=== PATIENT | male | born 1960 | race African-American/Black ===

== ENCOUNTER 2024-11-03 05:36 | Outpatient (REF) | payer MEDICARE, SELFPAY ==
[2024-11-03 05:41] LABS: MANUAL DIFF FLAG NO
[2024-11-03 06:09] LABS: Basophils Absolute Auto 0.1 X10*3/uL (0.0-0.2); Basophils Percent Auto 1.7 % (0-2); Eosinophils Absolute Auto 0.2 X10*3/uL (0.0-0.4); Eosinophils Percent Auto 3.3 % (0-4); Hematocrit 32.4 % (42.0-52.0); Imm Gran Abs Auto 0.09 X10*3/uL (0.00-0.03); Imm Gran Pct Auto 1.7 % (0.0-0.4); Lymphocytes Absolute Auto 0.8 X10*3/uL (1.2-4.9); Lymphocytes Percent Auto 15.2 % (20-40); Mean Corpuscular Hemoglobin 33.1 pg (27.0-33.0); Mean Corpuscular Volume 97.6 fL (80.0-98.0); Mean Platelet Volume 12.5 fL (9.4-12.4); Monocytes Absolute Auto 0.6 X10*3/uL (0.1-1.2); Monocytes Percent Auto 10.5 % (2-11); Neutrophils Absolute Auto 3.7 x10*3/uL (2.0-8.3); Neutrophils Percent Auto 67.6 % (45-73); Platelet Count 116 X10*3/uL (160-400); Red Blood Count 3.32 X10*6/uL (4.60-5.80); Red Cell Distribution Width 16.2 % (11.0-16.0); White Blood Count 5.4 X10*3/uL (4.8-10.8)
[2024-11-03 06:23] LABS: Estimated Average Glucose 103 mg/dL; Hemoglobin A1C 99.1159 umol/L; Hemoglobin A1c % 5.2 % (<6.0); Total Hemoglobin (HGBA1C) 2935.9828 umol/L
[2024-11-03 06:48] LABS: Alanine Aminotransferase 143 U/L (0-40); Albumin Level 3.4 g/dL (3.5-5.0); Alkaline Phosphatase 637 U/L (39-117); Anion Gap 17 (12-20); Aspartate Amino Transferase 108 U/L (5-37); Bilirubin Total 1.9 mg/dL (0.0-1.0); Blood Urea Nitrogen 81 mg/dL (9-16); Calcium 9.4 mg/dL (8.4-10.2); Carbon Dioxide 24 mmol/L (22-29); Chloride 95 mmol/L (96-108); Estimated Glomerular Filt Rate 11; Glucose Random 119 mg/dL (60-115); Potassium 4.1 mmol/L (3.3-5.1); Sodium 132 mmol/L (135-145); Total Protein 7.9 g/dL (6.5-8.0)
[2024-11-03 16:23] LABS: Phosphorus 4.6 mg/dL (2.7-4.5)
== END 2024-11-03 05:37 | disposition home or self-care (01) ==
LOC: HO.MMNH2L 05:36
PROVIDERS: Visit Provider Student in an Organized Health Care Education/Training Program
DX: Z99.2 Dependence on renal dialysis (principal); Z13.1 Encounter for screening for diabetes mellitus
CPT/HCPCS: 36415; 80053; 83036; 84100; 85025

== ENCOUNTER 2024-11-14 11:08 | Emergency (ER) | payer MEDICARE, MEDICAID, SELFPAY ==
[2024-11-14] VITALS (8 sets, daily range): BP systolic 84–107; BP diastolic 44–57; PULSE 73–128; RESP 18–21; TEMP 36.4–36.9; O2SAT 95–100; BMI 16.5
--- NOTE | 2024-11-14 | ECG_ITS ---
Test Reason : cp Blood Pressure : */* mmHG Vent. Rate : 118 BPM Atrial Rate : * BPM P-R Int : * ms QRS Dur : 82 ms QT Int : 326 ms P-R-T Axes : * 34 64 degrees QTcB Int : 456 ms Atrial fibrillation with rapid ventricular response with premature ventricular or aberrantly conducted complexes Low voltage QRS Nonspecific ST and T wave abnormality Abnormal ECG When compared with ECG of 21-Jul-2016 09:16, Rhythm change Referred By: Carmenza Hull Electronically Signed By: TASHIA HODGE
--- NOTE | ~2024-11-14 | CT_ITS ---
EXAMINATION: CT HEAD WITHOUT CONTRAST CLINICAL INFORMATION: raman hx of on eliquis COMPARISON: None available. TECHNIQUE: Contiguous axial imaging was performed from the skull base to vertex without intravenous administration of contrast. This CT examination was performed using dose optimization techniques as appropriate, variously including the following: *Automated exposure control *Adjustment of mA and/or kV according to patient size (this includes techniques or standardized protocols for targeted exams where dose is matched to indication/reason for exam; i.e. extremities or head) *Use of iterative reconstruction technique DLP: 1502 mGy-cm FINDINGS: No acute intracranial hemorrhage, mass effect, midline shift, hydrocephalus or herniation. Bilateral multifocal patchy and confluent deep periventricular white matter hypodensities involving centrum semiovale and vargas radiata both hemispheres. Questionable hypodensities in the ventral medulla oblongata/poornima. Prominence of the extra-axial CSF spaces cerebral sulci, ventricles likely central volume loss. Vascular calcifications, intracranial and extracranial. There is a nasal septum defect. Secretions/effervescent in the nasal cavity. Small retention cysts versus polyp, right maxillary sinus and left ethmoid air cells. Tympanic cavities and mastoid air cells are aerated. Air-fluid level in the left sphenoid sinus. Pneumatized petrous apices, congenital. No gross hematoma or masses in the intraconal or the extraconal compartments of the orbits. The bony calvarium is intact. CT/CT head/brain wo IV con IMPRESSION: Small vessel occlusive disease. Superimposed acute stroke/nonhemorrhagic ischemia cannot be entirely excluded. If patient's symptoms persist and or concern recommend non-IV contrast MRI brain. Nasal septum defect which could be related to the proximal. Acute on chronic paranasal sinus disease. Atherosclerosis disease.. Electronically signed by: Todd Singh MD 11/14/2024 03:[address] [facility]
--- NOTE | ~2024-11-14 | CT_ITS ---
EXAMINATION: CT ABDOMEN AND PELVIS WITH CONTRAST CLINICAL INFORMATION: Abdominal pain. COMPARISON: CT dated November 22, 2009.. TECHNIQUE: Multidetector volumetric images were obtained from the superior aspect of the liver through the pubic symphysis following administration 85 mL of Omnipaque 350 intravenous contrast. Sagittal and coronal reformatted images were obtained on the technologist's workstation. Oral contrast: No This CT examination was performed using dose optimization techniques as appropriate, variously including the following: *Automated exposure control *Adjustment of mA and/or kV according to patient size (this includes techniques or standardized protocols for targeted exams where dose is matched to indication/reason for exam; i.e. extremities or head) *Use of iterative reconstruction technique. DLP: 1502 mGy centimeters. FINDINGS: LUNG BASES: Atelectasis lung bases. LIVER, GALLBLADDER, AND BILIARY TREE: Intrahepatic and extrahepatic biliary ductal dilatation. The common bile duct measures 1.2 cm in maximum diameter with an abrupt cut off at the junction with the second portion of the duodenum. Liver measures 16 cm. Decreased enhancement pattern due to mostly arterial phase acquisition. The portal vein appears patent. Fluid-filled prominent gallbladder. No pericholecystic fluid collection or gallbladder wall thickening. PANCREAS: No focal mass. No main pancreatic ductal dilatation. No peripancreatic fluid collections. SPLEEN: 10 cm. No focal mass. ADRENAL GLANDS: No nodular lesions. Mild soft tissue fullness. KIDNEYS AND URETERS: Kidneys are small. No gross hydronephrosis. No mass. BLADDER: Fluid-filled. GASTROINTESTINAL TRACT: Abundant stool within the large intestine. There is a protrusion of the rectum slightly below the pelvic floor. No intestinal obstruction pattern. Appendix is normal. Status post percutaneously placed gastrostomy anchor in the body of the stomach lumen. No pneumoperitoneum. No gross ascites. No peripheral enhancing fluid collection, peritoneal cavity. ABDOMINAL WALL: No gross hernia. LYMPH NODES: No lymphadenopathy, mesenteric or retroperitoneal. VASCULAR: Mixed plaques throughout the abdominal aorta wall and iliac arteries without aneurysm or dissection. Calcified plaques in the coronary arteries. Beam hardening artifact secondary to metallic electrode in the right ventricle. Mixed plaques throughout the descending thoracic aorta, mesenteric arteries, splenic artery and main renal arteries. Calcified plaques in the vessels of the upper thigh. PELVIC VISCERA: No gross masses. OSSEOUS STRUCTURES: Subchondral cyst formation sclerosis and the articular surface of the acetabulum both coxofemoral joints more conspicuous on the right side. Multilevel thoracolumbar spondylosis. No gross acute fracture or listhesis in the axial skeleton. Sclerosis and the sacroiliac joints bilaterally. 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 Intrinsic neoplasm/lesion cannot be excluded. Probable rectal prolapsed. Coronary artery disease and atherosclerosis disease. Consider medical renal disease without hydronephrosis.. Fleischner guidelines were followed. Electronically signed by: Todd Singh MD 11/14/2024 03:19 PM [facility]
--- NOTE | ~2024-11-14 | CT_ITS ---
EXAMINATION: CT CHEST WITH CONTRAST CLINICAL INFORMATION: Chest pain. End-stage renal disease. Patient on anticoagulation therapy. Concerning pulmonary embolism. COMPARISON: None available. TECHNIQUE: Multidetector volumetric CT imaging of the chest was obtained after the administration of 85 mL of Omnipaque 350 intravenous contrast without immediate adverse reactions. Axial MIP volume rendering provided. Sagittal and coronal reformatted images were obtained. This CT examination was performed using dose optimization techniques as appropriate, variously including the following: *Automated exposure control *Adjustment of mA and/or kV according to patient size (this includes techniques or standardized protocols for targeted exams where dose is matched to indication/reason for exam; i.e. extremities or head) *Use of iterative reconstruction technique. DLP: 1502 mGy centimeter. FINDINGS: HIGHWAY MAINTENANCE SUPERVISOR: No gross intraluminal filling defects within the main pulmonary artery or its main branches. The main pulmonary artery diameter is 3.8 cm. The main right pulmonary artery diameter is 1.6 cm. The left main pulmonary artery diameter is 2.4 cm. No aneurysm or dissection, thoracic aorta. Mixed plaques throughout the thoracic aorta wall and its main branches and the coronary arteries. Calcified plaques in the aortic valve and in the mitral valve. Trace of pericardial effusion. No lymphadenopathy in the mediastinum or pulmonary hilum. Patchy and linear attenuation in the lung bases. No gross consolidation. No bronchiectasis. No honeycombing. Respiratory is patent. Multilevel cervical thoracic spondylosis. No acute fracture or listhesis in the axial skeleton. There is a fistula in the medial left pretracheal region no fully included in the exam. There is an apparent mixed plaque in the distal component of the fistulization. The abdomen has been included on a separate dictation. CT/CT chest w IV con IMPRESSION: No acute pulmonary artery emboli. No thoracic aortic aneurysm or dissection. Atelectasis, right lower lung lobe. Prominent pulmonary artery outflow. Pulmonary hypertension cannot be excluded. Coronary artery disease and atherosclerosis disease. Fleischner guidelines were followed. Electronically signed by: Todd Singh MD 11/14/2024 03:31 PM [facility]
--- NOTE | 2024-11-14 11:36 | ED_ITS ---
HPI - Chest Pain General Chief Complaint: Chest Pain Stated Complaint: CHEST/ABD PAIN @ DIALYSIS PER EMS Time Seen by Provider: 11/14/24 11:17 History of Present Illness HPI narrative: Patient is a 64-year-old male with a history of end-stage renal disease history of atrial fibrillation currently on Eliquis unsure of his compliance. Normally gets dialysis on Wednesday and Wednesday. Just got dialysis today. Complaining of chest pain abdominal pain headache that was sudden in onset towards the end of dialysis. There has been no change in his bowel movement. There is no fever no chills. There is no chest pain. There was no coughing or congestion. Patient was given an oxycodone through the G-tube with no relief. Patient is from home. Denies any bloody stool. Denies any diaphoresis. Denies any focal weakness. Related Data Home Medications ?Medication ?Instructions ?Recorded ?Confirmed apixaban 2.5 mg tablet (Eliquis) 2.5 mg feeding tube BID 11/14/24 11/14/24 bisacodyl 10 mg rectal suppository 10 mg IL BEDTIME 11/14/24 11/14/24 bisacodyl 10 mg rectal suppository 10 mg IL DAILY PRN constipation if 11/14/24 11/14/24 no result from MOM calcium carbonate 300 mg PO TIDWM 11/14/24 11/14/24 dextrose 40 % oral gel (Glucose 15 g PO Q15M PRN BS less than 60 11/14/24 11/14/24 Gel) and conscious diphenhydramine HCl 25 mg tablet 25 mg PO Q8H PRN itchiness 11/14/24 11/14/24 (Benadryl Allergy) docusate sodium 100 mg capsule 100 mg PO BID 11/14/24 11/14/24 fluticasone propionate 50 1 spray intranasal Q12H PRN 11/14/24 11/14/24 mcg/actuation nasal Congestion spray,suspension gabapentin 250 mg/5 mL (5 mL) oral 100 mg feeding tube TID 11/14/24 11/14/24 solution glucagon 1 mg solution for 1 mg subcut Q20M PRN BS less than 11/14/24 11/14/24 injection (Glucagon Emergency Kit) 60 and unconscious melatonin 3 mg tablet 6 mg PO BEDTIME 11/14/24 11/14/24 metoprolol tartrate 25 mg tablet 6.25 mg feeding tube BID 11/14/24 11/14/24 midodrine 5 mg tablet 5 mg feeding tube TID 11/14/24 11/14/24 multivitamin 1 tab feeding tube MOWEFR 11/14/24 11/14/24 oxycodone 5 mg/5 mL oral solution 5 mg PO Q4H PRN Severe Pain (Scale 11/14/24 11/14/24 Score 7-10) polyethylene glycol 3350 17 gram 17 g feeding tube DAILY 11/14/24 11/14/24 oral powder packet sennosides 8.6 mg tablet 17.2 mg feeding tube BEDTIME 11/14/24 11/14/24 tizanidine 2 mg tablet 2 mg PO TID 11/14/24 11/14/24 trazodone 50 mg tablet 50 mg feeding tube BEDTIME 11/14/24 11/14/24 Allergies Allergy/AdvReac Type Severity Reaction Status Date / Time No Known Allergies Allergy Unknown NOT Verified 11/14/24 11:25 APPLICABLE Review of Systems 2 Review of Systems: Positive chest pain positive abdominal pain positive headache PMFSH Past Medical History Attestation statement: The following information was validated with the patient. Social History Social History Smoked in Last 30 Days: No Use of substances other than those prescribed or required for medical reasons: No Advance Directives: No Physical Exam 2 Vital Signs: Vital Signs: Last Vital Signs Temp 97.8 F 11/14/24 16:07 Pulse 74 11/14/24 17:06 Resp 18 11/14/24 17:06 BP 97/47 L 11/14/24 17:06 Pulse Ox 98 11/14/24 17:06 O2 Del Method Room Air 11/14/24 17:06 BMI result Body Mass Index 16.5 Appearance: Alert. Oriented X3. No acute distress. Eyes: Pupils equal, round and reactive to light. ENT: Pharynx normal. Neck: Normal inspection. Neck supple. No lymph nodes noted. No crepitus CVS: Irregularly irregular Respiratory: Positive expiratory wheezes bilaterally Abdomen: Soft and nontender. No rigidity. No distention. good BS x4 Skin: Skin warm and dry. Normal skin color. Normal skin turgor. Extremities: No lower extremity edema. Neurovascular intact to all extremities. No Lacerations. No Rash Neuro: Oriented X 3. No motor deficit. No sensory deficit. Moving all extermities. No slurred speech Medications Administered Discontinued Medications Generic Name Dose Route Start Last Admin Trade Name Elayne PRN Reason Stop Dose Admin Aspirin 324 mg 11/14/24 11:39 11/14/24 11:52 Aspirin 81 Mg Tab.Chew PO 11/14/24 11:40 324 mg ONCE ONE Administration Iohexol 85 ml 11/14/24 14:19 11/14/24 14:19 Iohexol 350 Mg/Ml 100 Ml Infus..Btl IV 11/14/24 14:20 85 ml ONCE ONE Administration Metoprolol Tartrate 5 mg 11/14/24 11:39 11/14/24 12:02 Metoprolol Tartrate 5 Mg/5 Ml Vial IVPUSH 11/14/24 11:40 5 mg ONCE ONE Administration Protocol Medical Decision Making Medical Decision Making MDM Narrative: Patient presented today from dialysis he stated he finished dialysis when he arrived. Having nonspecific chest pain abdominal pain headache. Was given an oxycodone via G-tube with no relief. Patient came in for further evaluation. Feels tired. Patient's COVID flu RSV came back positive for COVID. Potassium was 5.2. Patient's initial EKG showed an atrial fibrillation pattern heart rate is about 120. Given 5 mg metoprolol monitored in the ED. my interpretation of the repeat EKG done showed a sinus rhythm heart rate is approximately 70 IL QRS QTC normal no acute ST segment elevation. Patient became chest pain free. My interpretation of patient's CT scan head was negative for any acute evidence of bleeding. I reviewed radiology's reading. I reviewed radiology's reading of the chest CT which showed no overt large infiltrate no overt large PE. 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 Patient's liver enzymes proximally baseline. There is no overt obstruction no abscess no perforation. Patient's potassium was repeated the repeat potassium is 5.8. Second troponin was more elevated at approximately 68 he is currently symptom free wants to go home. Will discussed with the rn rehabilitation. Thought patient's risk for PE to be low as patient has a history of being on Eliquis. Patient's case discussed with Dr. Weinstein from Nephrology the repeat potassium was 5.8. Troponin more elevated but patient is has no complaints at this time. Wanted patient to get 15 mg of lokalmine, okay with discharging home and following up on an outpatient basis. Will arrange for patient to get another dialysis session tomorrow. Currently in stable condition. Aware of the troponin and aware of the K finding. Differential Diagnosis Differential Diagnoses: The differential diagnosis associated with the presentation includes Atrial fibrillation COVID nonspecific chest pain Admission/Observation Consideration of admission/observation: Escalation of care including admission/observation considered Consult Healthcare Provider Management of the patient was discussed with: Plastics Design Engineer (Nephrology) Lab Data MDM Lab Attestation statement: I reviewed the patient's lab results. 11/14/24 15:01 11/14/24 16:05 Labs: Lab Results 11/14/24 11/14/24 11/14/24 Range/Units 12:51 12:51 12:53 WBC (4.8-10.8) X10*3/uL RBC (4.60-5.80) X10*6/uL Hgb (14.0-18.0) g/dl Hct (42.0-52.0) % MCV (80.0-98.0) fL MCH (27.0-33.0) pg MCHC (31.0-36.0) g/dl RDW (11.0-16.0) % Plt Count (160-400) X10*3/uL MPV (9.4-12.4) fL Immature Gran % (Auto) (0.0-0.4) % Neut % (Auto) (45-73) % Lymph % (Auto) (20-40) % [place] % (Auto) (2-11) % Eos % (Auto) (0-4) % Baso % (Auto) (0-2) % Lymph # (Auto) (1.2-4.9) X10*3/uL [place] # (Auto) (0.1-1.2) X10*3/uL Eos # (Auto) (0.0-0.4) X10*3/uL Baso # (Auto) (0.0-0.2) X10*3/uL Abs Immat Gran (auto) (0.00-0.03) X10*3/uL Absolute Neuts (auto) (2.0-8.3) x10*3/uL Absolute Nucleated RBC (0.0-0.012) X10*3/uL Nucleated RBC % (auto) (0.0-0.2) /100WBC PT (10.9-12.4) SEC INR (0.9-1.1) VBG pH 7.66 H* (7.32-7.43) VBG pCO2 25 mmHg VBG pO2 197 mmHg VBG HCO3 28 H (22-26) mmol/L VBG O2 Saturation 99.0 % VBG Base Excess 8.7 mmol/L Sodium 136 (135-145) mmol/L Potassium 5.2 H D (3.3-5.1) mmol/L Chloride 97 (96-108) mmol/L Carbon Dioxide 28 (22-29) mmol/L Anion Gap 16 (12-20) BUN 35 H (9-16) mg/dL Creatinine 3.47 H (0.5-1.4) mg/dL Estim Creat Clear Calc 16.0 Estimated GFR 18 Random Glucose 93 (60-115) mg/dL Calcium 9.1 9.4 (8.4-10.2) mg/dL Phosphorus 3.2 (2.7-4.5) mg/dL Magnesium 2.5 (1.6-2.6) mg/dL Total Bilirubin 1.2 H (0.0-1.0) mg/dL Direct Bilirubin 0.6 H (0.0-0.5) mg/dL AST 55 H (5-37) U/L ALT 74 H (0-40) U/L Alkaline Phosphatase 293 H (39-117) U/L Troponin I High Sens 52.5 H (<3.5-35.0) ng/L Total Protein 8.5 H (6.5-8.0) g/dL Albumin 3.6 (3.5-5.0) g/dL Lipase 81 H (8-78) U/L Influenza Type A (PCR) NEGATIVE (Negative) Influenza Type B (PCR) NEGATIVE (Negative) RSV RNA Qual (PCR) NEGATIVE (Negative) SARS-CoV-2 RNA (RT-PCR) POSITIVE A (Negative) 01/11/14/24 11/14/24 Range/Units 15:01 16:05 16:22 WBC 8.2 (4.8-10.8) X10*3/uL RBC 3.51 L (4.60-5.80) X10*6/uL Hgb 11.9 L (14.0-18.0) g/dl Hct 34.9 L (42.0-52.0) % MCV 99.4 H (80.0-98.0) fL MCH 33.9 H (27.0-33.0) pg MCHC 34.1 (31.0-36.0) g/dl RDW 15.7 (11.0-16.0) % Plt Count 127 L (160-400) X10*3/uL MPV 11.2 (9.4-12.4) fL Immature Gran % (Auto) 0.9 H (0.0-0.4) % Neut % (Auto) 71.6 (45-73) % Lymph % (Auto) 14.0 L (20-40) % [place] % (Auto) 10.6 (2-11) % Eos % (Auto) 1.9 (0-4) % Baso % (Auto) 1.0 (0-2) % Lymph # (Auto) 1.2 (1.2-4.9) X10*3/uL [place] # (Auto) 0.9 (0.1-1.2) X10*3/uL Eos # (Auto) 0.2 (0.0-0.4) X10*3/uL Baso # (Auto) 0.1 (0.0-0.2) X10*3/uL Abs Immat Gran (auto) 0.07 H (0.00-0.03) X10*3/uL Absolute Neuts (auto) 5.9 (2.0-8.3) x10*3/uL Absolute Nucleated RBC 0.000 (0.0-0.012) X10*3/uL Nucleated RBC % (auto) 0.0 (0.0-0.2) /100WBC PT 12.4 (10.9-12.4) SEC INR 1.1 (0.9-1.1) VBG pH 7.50 H (7.32-7.43) VBG pCO2 46 mmHg VBG pO2 50 mmHg VBG HCO3 36 H (22-26) mmol/L VBG O2 Saturation 81.0 % VBG Base Excess 11.9 mmol/L Sodium (135-145) mmol/L Potassium 5.8 H (3.3-5.1) mmol/L Chloride (96-108) mmol/L Carbon Dioxide (22-29) mmol/L Anion Gap (12-20) BUN (9-16) mg/dL Creatinine (0.5-1.4) mg/dL Estim Creat Clear Calc Estimated GFR Random Glucose (60-115) mg/dL Calcium (8.4-10.2) mg/dL Phosphorus (2.7-4.5) mg/dL Magnesium (1.6-2.6) mg/dL Total Bilirubin (0.0-1.0) mg/dL Direct Bilirubin (0.0-0.5) mg/dL AST (5-37) U/L ALT (0-40) U/L Alkaline Phosphatase (39-117) U/L Troponin I High Sens 68.5 H (<3.5-35.0) ng/L Total Protein (6.5-8.0) g/dL Albumin (3.5-5.0) g/dL Lipase (8-78) U/L Influenza Type A (PCR) (Negative) Influenza Type B (PCR) (Negative) RSV RNA Qual (PCR) (Negative) SARS-CoV-2 RNA (RT-PCR) (Negative) Independent Interpretation I performed an independent interpretation of an: EKG (Initial EKG showed an atrial fibrillation pattern heart rate is 120 subsequent EKG showed a sinus pattern heart rate is 70 IL QRS QTC normal no ST segment elevation) and CT Scan (My interpretation patient's CT scan of the head was negative for bleed.) Radiology Impression Discussion of test interpretation with radiology: I have reviewed the radiologist's reading. (CT head, chest, abdomen pelvis) External Record Review External record reviewed: Inpatient record Chronic Conditions Patient?s care impacted by: Hypertension End-stage renal disease on dialysis Wednesday Social Determinants Patient?s care significantly limited by Social Determinants of Health including: Inadequate housing, Problems related to primary support group and Unemployment Discharge Plan Discharge Clinical Impression: Atrial fibrillation, COVID, Acute hyperkalemia Patient Disposition: Home, Self-Care Instructions: A-fib (Atrial Fibrillation) (ED), COVID-19 (Coronavirus Disease 2019) (ED) Additional Instructions: Concerning 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 Intrinsic neoplasm/lesion cannot be excluded. Please closely follow-up on an outpatient basis. Prescriptions: No Action multivitamin Tablet 1 tab feeding tube MOWEFR sennosides 8.6 mg Tablet 17.2 mg feeding tube BEDTIME tizanidine 2 mg Tablet 2 mg PO TID trazodone 50 mg Tablet 50 mg feeding tube BEDTIME polyethylene glycol 3350 17 gram Powder In Packet 17 g feeding tube DAILY dextrose [Glucose Gel] 40 % Gel 15 g PO Q15M PRN (Reason: BS less than 60 and conscious) Rx Instructions: until symptoms of low blood sugar are controlled midodrine 5 mg Tablet 5 mg feeding tube TID Rx Instructions: do not give last dose of day after 6PM or within 4 hrs of bedtime oxycodone 5 mg/5 mL Solution 5 mg PO Q4H PRN (Reason: Severe Pain (Scale Score 7-10)) calcium carbonate 300 mg (750 mg) Tablet,Chewable 300 mg PO TIDWM melatonin 3 mg Tablet 6 mg PO BEDTIME bisacodyl 10 mg Suppository 10 mg IL DAILY PRN (Reason: constipation if no result from MOM) bisacodyl 10 mg Suppository 10 mg IL BEDTIME diphenhydramine HCl [Benadryl Allergy] 25 mg Tablet 25 mg PO Q8H PRN (Reason: itchiness) docusate sodium 100 mg Capsule 100 mg PO BID Glucagon Emergency Kit (human) 1 mg Recon Soln 1 mg SUBCUT Q20M PRN (Reason: BS less than 60 and unconscious) Rx Instructions: until target blood sugar attained fluticasone propionate 50 mcg/actuation [place],Suspension 1 spray INTRANASAL Q12H PRN (Reason: Congestion) Rx Instructions: administer into each nostril metoprolol tartrate 25 mg Tablet 6.25 mg feeding tube BID gabapentin 250 mg/5 mL (5 mL) Solution 100 mg feeding tube TID Eliquis 2.5 mg Tablet 2.5 mg feeding tube BID Referrals: Derek Weinstein MD [Physician] - 11/14/24 Print Language: Bengali
[2024-11-14] MEDS: Aspirin 81 MG TAB.CHEW 324 MG PO (11:52)
--- NOTE | 2024-11-14 12:01 | PC.NURSE ---
BP 107/57. Per Dr. Della sahni to give lopressor
[2024-11-14] MEDS: Metoprolol Tartrate 5 MG/5 ML VIAL IVPUSH (12:02)
--- NOTE | 2024-11-14 12:58 | PC.NURSE ---
pt is very difficult draw. multiple people tried for an iv line. a 22g was inserted. only some lab draws were obtained with butterfly. aware.
--- OUTSIDE RECORDS SUMMARY | 2024-11-14 13:00 | XMS_ITS | Encounter Summary ---
Author Organization [facility], Address [address] [place] [address] Phone Care Team Providers Care Angiographer Name Role Phone Delores Painter MD Primary Care Provider [phone] Encounter Details Date Type Department Care Team (Late st Contact Info) Description 11/09/2024 Telephone [facility] - [facility] [address] [place] [id number] Jennifer Suarez [address] [place] [phone] Social History Tobacco Use Types Packs/Day Years Used Date Smoking Tobacco: Never Smokeless Tobacco: Never Alcohol Use Standard Drinks/Week Comments Never 0 (1 standard drink = 0.6 oz pur e alcohol) Sex and Gender Information Value Date Recorded Sex Assigned at Not on file Legal Sex Male 5:02 PM EST Gender Identity Not on file Sexual Orientation Not on file documented as of this encounter Miscellaneous Notes * Telephone Encounter - Jennifer Suarez - 11/09/2024 2:31 PM EST Called patient and LVM for patient to call office and reschedule fistulagram procedure. documented in this encounter Plan of Treatment Not on file documented as of this encounter Procedures Procedure Name Priority Date/Time Associated Diagnosis Comments HEMOGLOBIN AND HEMATOCRIT, BLOOD Routine 11/09/2024 3:00 AM EST documented in this encounter Results * (ABNORMAL) Hemoglobin and hematocrit (11/09/2024 3:00 AM EST) Hgb 10.4(L) 13.7 - 17.5 g/dL [facility] Hematocrit 31.0(L) 40.1 - 51.0 % [facility] Hemoglobin x 3 31.2(L) 41.1 - 52.5 g/dL [facility] 11/09/2024 3:00 AM EST 11/10/2024 1:22 PM EST us Zeeshan Infante MD LAB BLOOD ORDERABLES Final Result [facility] [address] [place] [address] documented in this encounter Visit Diagnoses Not on filedocumented in this encounter Care Teams Angiographer Relationship Specialty Start Date End Date Delores Painter MD [address] PCP - General 10/28/20 documented as of this encounter
--- OUTSIDE RECORDS SUMMARY | 2024-11-14 13:00 | XMS_ITS | Encounter Summary ---
Author Organization [facility] Address [address] [address] Phone Care Team Providers Care Rides Supervisor Name Role Phone Delores Painter MD Primary Care Provider [phone] Encounter Details Date Type Department Care Team (Late st Contact Info) Description 11/09/2024 Treatment [facility] [address] [phone] Cherrie Infante MD [address] [phone] Social History Tobacco Use Types Packs/Day Years [...] as of this encounter Miscellaneous Notes * Dialysis Note - Cherrie Infante MD - 11/09/2024 12:00 AM EST Patient: Alton Thornton : 1960 Note Type: Dialysis Rounds-Comp Service Date: 11/09/2024 This patient was personally seen for a complete visit as part of routine monthly dialysis care for end stage renal disease. Attending Salon Professional: CHERRIE INFANTE MD Dialysis Location: [facility] Schedule: Shift: 1 OVERVIEW Patient is stable. HOME MEDICATIONS Medications reviewed. BP AND FLUID ASSESSMENT Acceptable blood pressure. ADEQUACY ASSESSMENT Target met. Prescription compliance acceptable. spKt/V (Daugirdas II) 1.51 (07/24/24) 1.32 (07/19/24) 1.50 (07/14/24) eKdrt/V 1.30 (07/24/24) 1.16 (07/19/24) 1.33 (07/14/24) % Urea Reduction 74 (07/24/24) 67 (07/19/24) 73 (07/14/24) BUN 110 (07/24/24) 66 (07/19/24) 44 (07/14/24) BUN Post Dialysis 29 (07/24/24) 22 (07/19/24) 12 (07/14/24) Creatinine 7.99 (07/19/24) 8.51 (06/21/24) 7.69 (05/24/24) Bicarbonate (CO2) 24 (07/19/24) 25 (06/21/24) 29 (05/24/24) Sodium 136 (07/19/24) 136 (06/21/24) 135 (05/24/24) ACCESS ASSESSMENT Vascular access examined. ANEMIA ASSESSMENT Anemia targets met. Hemoglobin at target. Hemoglobin 13.2 (08/02/24) 13.0 (07/26/24) 13.4 (07/19/24) Iron Saturation (TSat) 26 (07/19/24) 22 (06/21/24) 32 (05/24/24) Ferritin 671 (07/19/24) 861 (06/21/24) 888 (05/24/24) Iron 57 (07/19/24) 49 (06/21/24) 70 (05/24/24) TIBC 222 (07/19/24) 218 (06/21/24) 218 (05/24/24) Reticulocyte Hemoglobin 35.2 (07/19/24) 32.5 (04/21/24) 32.9 (01/19/24) MCV 102 (07/19/24) 100 (04/21/24) 97 (01/19/24) BMM ASSESSMENT PTH within target. Hyperphosphatemia noted. Calcium controlled. Bone and mineral metabolism parameters reviewed. Calcium 9.2 07/19/24 9.7 06/21/24 9.5 05/24/24 Corrected Calcium 9.4 07/19/24 9.8 06/21/24 9.7 05/24/24 Phosphorus 6.8 07/19/24 8.4 06/21/24 7.5 05/24/24 Calcium Phosphorus Product 63 07/19/24 81 06/21/24 71 05/24/24 PTH 375 06/21/24 377 05/24/24 512 04/21/24 Vitamin D, 25-OH, Total 23.8 07/19/24 Magnesium 2.1 07/19/24 2.0 06/21/24 2.2 05/24/24 Alkaline Phosphatase 110 07/19/24 130 04/21/24 103 01/19/24 Aluminum <5 07/19/24 NUTRITION ASSESSMENT Albumin not at goal. Albumin 3.7 07/19/24 3.9 06/21/24 3.7 05/24/24 Potassium 5.4 07/19/24 4.4 06/21/24 4.6 05/24/24 eNPCR 1.31 07/24/24 0.99 07/19/24 0.80 07/14/24 Hemoglobin A1C 6.9 07/19/24 6.8 04/21/24 6.7 01/19/24 PHYSICAL EXAM Exam performed. Vital Signs Reviewed. Lungs - Clear. CV - Blood pressure noted. No edema. EXT - No ulcers. ADDITIONAL LABS WBC 6.48 (07/19/24) 6.13 (04/21/24) 5.53 (01/19/24) Hepatitis B Surface Ab >1,000 (07/19/24) >1,000 (01/19/24) Signed by: CHERRIE INFANTE MD on 11/09/2024 at 09:13:04 AM documented in this encounter Plan of Treatment Not on file documented as of this encounter Visit Diagnoses Not on filedocumented in this encounter Care Teams Rides Supervisor Relationship Specialty Start Date End Date Delores Painter MD [address] PCP - General 10/28/20 documented as of this encounter
--- OUTSIDE RECORDS SUMMARY | 2024-11-14 13:00 | XMS_ITS | Encounter Summary ---
Author Organization [facility], Address [address] [place] [address] Phone Care Team Providers Care Bakery Machine Mechanic Supervisor Name Role Phone Delores Painter MD Primary Care Provider [phone] Encounter Details Date Type Department Care Team (Late st Contact Info) Description 11/10/2024 Telephone [facility] - [facility] Center [address] [place] [phone] Katheryn Purvis [address] [place] [phone] Social History Tobacco Use Types Packs/Day Years [...] encounter Miscellaneous Notes * Telephone Encounter - Katheryn Purvis - 11/10/2024 12:49 PM EST Pt called back and said that he wants to wait until he is discharged from rehab to reschedule fistulagram procedure. Pt said that he is not having any issues with his access and will call us if any problems occur. documented in this encounter Plan of Treatment Not on file documented as of this encounter Visit Diagnoses Not on filedocumented in this encounter Care Teams Bakery Machine Mechanic Supervisor Relationship Specialty Start Date End Date Delores Painter MD [address] PCP - General 10/28/20 documented as of this encounter
--- OUTSIDE RECORDS SUMMARY | 2024-11-14 13:00 | XMS_ITS | Clinical Summary ---
Author Organization [facility], Address [address] [place] [address] Phone Care Team Providers Care Game Operator Name Role Phone Delores Painter MD Primary Care Provider [phone] Allergies No known active allergies Medications Velphoro 500 MG chewable tablet 3 tablets 3 (three) times a day before meals 2 tablets 3 times/ day AND once tablet with snacks 0 Active apixaban (ELIQUIS) 5 MG tablet Take 1 tablet by mouth twice a day 1 Active carvedilol (COREG) 25 MG tablet Take 1 tablet (25 mg total) by mouth in the morning and 1 tablet (25 mg total) in the evening. 60 tablet 3 2 Active atorvastatin (LIPITOR) 10 MG tablet 0 Refills, Maintenance, 07/25/21 11:22:00 EDT, Partial fill upon patient request if the prescription is for a schedule II opioid drug. 1 Active Fosrenol 1000 MG pack MIX 2 PACKETS WITH SMALL AMOUNT OF APPLESAUCE OR SIMILAR FOOD. 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 05/02/2021 Hypertensive renal disease with renal failure Atrial fibrillation 11/16/2019 Cataract 11/16/2019 Hypertension 11/16/2019 Gout 11/16/2019 Anemia in chronic kidney disease 09/01/2018 End stage renal disease 09/01/2018 Type 2 diabetes mellitus wit h diabetic chronic kidney disease 09/01/2018 Resolved Problems Problem Noted Date Diagnosed Date Resolved Date Type 2 diabetes mellitus 11/16/2019 Encounters Date Type Department Care Team Description 11/14/2024 Treatment [facility] [address] [address] Zeeshan Infante MD 11/10/2024 Telephone [facility] [address] [place] [address] [place] [address] Katheryn Purvis 11/09/2024 Telephone [facility] [address] [place] [address] [place] [address] Jennifer Suarez 11/09/2024 Treatment [facility] [address] [address] Zeeshan Infante MD 10/02/2024 Telephone [facility] [address] [place] [address] Augusta Spencer from Last 3 Months Immunizations Name Administration Dates Next Due Hepatitis B 09/23/2016,08/26/2016 Influenza, Unspecified 07/30/2020 Moderna SARS-COV-2 12/19/2020,11/21/2020 Pneumococcal Conjugate 13-Valent 09/15/2018 Pneumococcal Polysaccharide 11/15/2018 Family History Medical History Relation Comments Cancer Father Hypertension Father Cancer Mother Hypertension Mother Relation Status Comments Father Mother Social History Tobacco Use Types Packs/Day Years Used Date Smoking Tobacco: Never Smokeless Tobacco: Never Tobacco Cessation:Counseling Given: Not Answered Alcohol Use Standard Drinks/Week Comments Never 0 (1 standard drink = 0.6 oz pur e alcohol) Sex and Gender Information Value Date Recorded Sex Assigned at Not on file Legal Sex Male 5:02 PM EST Gender Identity Not on file Sexual Orientation Not on file Last Filed Vital Signs Vital Sign Reading Time Taken Comments Blood Pressure 135/88 06/13/2024 11:07 AM EDT Pulse 109 06/13/2024 11:07 AM EDT Temperature 36.2 ??C (97.2 ??F) 06/13/2024 11:07 AM E DT Respiratory Rate 16 06/13/2024 11:07 AM EDT Oxygen Saturation 92% 06/13/2024 11:07 AM EDT Inhaled Oxygen Concentration - - Weight 96.2 kg (212 lb) 06/13/2024 11:07 AM EDT Height 177.8 cm (5' 10 ) 06/13/2024 11:07 AM EDT Body Mass Index 30.42 06/13/2024 11:07 AM EDT Plan of Treatment Health Maintenance Due Date Last Done Comments Hepatitis B Vaccine (1 of 5 - Risk Dialysis 4-dose series) 1980 09/23/2016, 08/26/2016 Colorectal Cancer Screening: Annual FOBT 02/29/2008 Colorectal Cancer Screening: Colonoscopy 02/29/2008 Colorectal Cancer Screening: Sigmoidoscopy 02/29/2008 Diabetes: Ophthalmology Exam 11/18/2020 Diabetes: Pedal Pulse Checked 11/18/2020 Diabetes: Sensory Foot Exam 11/18/2020 Diabetes: Visual Foot Exam 11/18/2020 Influenza Vaccine (#1) 2024 3, 08/12/2022, 08/02/2021, Additional history exists Diabetes: Hemoglobin A1C 10/19/2024 024, 04/21/2024, 01/19/2024, Additional history exists Pneumococcal Vaccine: 65+ Ye ars (4 of 4 - PPSV23 or PCV20) 11/17/2028 11/17/2023, 11/15/2018, 09/15/2018 Pneumococcal Vaccine: Pediat rics (0 to 5 Years) and At-Risk Patients (6 to 64 Years) (4 of 4 - PPSV23 or PCV20) 11/17/2028 11/17/2023, 11/15/2018, 09/15/2018 Procedures Procedure Name Priority Date/Time Associated Diagnosis Comments HEMOGLOBIN AND HEMATOCRIT, BLOOD Routine 11/09/2024 3:00 AM EST SPECIAL CHEMISTRY Routine 07/19/2024 from Last 3 Months or Most Recently Relevant to Health Maintenance Results * (ABNORMAL) Hemoglobin and hematocrit (11/09/2024 3:00 AM EST) Hgb 10.4(L) 13.7 - 17.5 g/dL [facility] Hematocrit 31.0(L) 40.1 - 51.0 % [facility] Hemoglobin x 3 31.2(L) 41.1 - 52.5 g/dL [facility] 11/09/2024 3:00 AM EST 11/10/2024 1:22 PM EST Zeeshan Infante MD LAB BLOOD ORDERABLES Final Result [facility] [address] [place] [address] * (ABNORMAL) SPECIAL CHEMISTRY (07/19/2024) Hemoglobin A1C 6.9(H) 4.8 - 5.9 % [facility] 07/19/2024 07/20/2024 10: 11 AM EDT Narrative [facility] - 07/20/2024 Unless otherwise specified, test(s) performed at: [facility], [address] [place] [id number] [employer]UD[employer] PROFESSOR: Adam Padron M.D. For any questions, please call customer service at FREQUENCY:MONTHLY Resulting Agency Comment Specimen source: Blood Derek Weinstein MD LAB BLOOD BANK TEST ORDERABLES Final Result [facility] See order comments or contact performing lab [facility], [place] from Last 3 Months or Most Recently Relevant to Health Maintenance [place] Care Teams Game Operator Relationship Specialty Start Date End Date Delores Painter MD [address] PCP - General 10/28/20
[2024-11-14 13:01] LABS: VBG Base Excess 8.7 mmol/L; VBG HCO3 28 mmol/L (22-26); VBG pCO2 25 mmHg; VBG pH 7.66 (7.32-7.43); VBG pO2 197 mmHg
--- OUTSIDE RECORDS SUMMARY | 2024-11-14 13:01 | XMS_ITS ---
Author Organization [facility] Address Unknown Medications Medication Dose Frequency Directions Start Date End Hever e Eliquis Tablet 2.5 MG 1 {tbl} 12 h Give 1 tablet by vinod th two times a day for anticoagulant Monitor for S/S bleeding 11/02/2024 11/02/2024 Calcium Acetate Tablet 667 MG 1 {tbl} Give 1 tablet via G-Tube with meals for supplement 11/03/2024 11/09/2024 Midodrine HCl Tablet 5 MG 1 {tbl} 8 h Give 1 tablet via G-Tube three times a day for for blood pressureSBP less than 100. hold for SBP 120 DO NOT GIVE AFTER EVENING MEAL OR WITHIN 4 HOURS OF BEDTIME TO AVOID SUPINE HYPERTENSION. 11/02/2024 Docusate Sodium Capsule 100 MG 1 {Capsule} 12 h Give 1 capsule via G-Tube two times a day for constipation 11/02/2024 oxyCODONE HCl Oral Solution 5 MG/5ML 5 mL Give 5 ml via G-Tube every 4 hours as needed for severe pain 11/02/2024 Metoprolol Tartrate Tablet 12.5 mg 12 h Give 12.5 mg by mout h two times a day for treats hypertension 11/03/2024 11/02/2024 Fluticasone Propionate Nasal Suspension 50 MCG/ACT 1 1 spray in both nostrils every 12 hours as needed for congestion 11/02/2024 Insulin Lispro-aabc Injection Solution 100 UNIT/ML 6 h Inject as per charmaine smith scale: if 0 - 149 = 0 units call MD if less than 70; 150 - 199 = 2 units; 200 - 249 = 4 units; 250 - 299 = 6 units; 300 - 349 = 8 units; 350 - 399 = 10 units; 400 - 1000 = call MD... call MD if greater than 400, subcutaneously every 6 hours for monitoring 11/02/2024 11/06/2024 Melatonin Tablet 3 MG 2 {tbl} Give 2 tablet via G-Tube at bedtime for sleep aid 11/03/2024 Multiple Vitamin Tablet 1 {tbl} 24 h Give 1 tablet via G-Tube one time a day every Mon, Wed, Fri for supplementation 11/03/2024 Gabapentin Oral Solution 2 mL 8 h Give 2 ml via G-Tube three times a day for nerve pain/seizures Gabapentin 250 mg/5 ml oral solution 11/03/2024 Sennosides Tablet 8.6 MG 2 {tbl} Give 2 tablet via G-Tube at bedtime for constipation 11/03/2024 TiZANidine HCl Tablet 2 MG 1 {tbl} 8 h Give 1 tablet via G-Tube three times a day for muscle relaxant 11/03/2024 Bisacodyl Rectal Suppository 10 MG 1 Insert 1 suppository rectally at bedtime for constipation 11/03/2024 Polyethylene Glycol Powder 17 24 h Give 17 gram via G-Tube one time a day for constipation *hold for diarrhea* 11/03/2024 Eliquis Tablet 2.5 MG 1 {tbl} 12 h Give 1 tablet via G-Tube two times a day for anticoagulant Monitor for S/S bleeding 11/03/2024 TraZODone HCl Tablet 50 MG 1 {tbl} Give 1 tablet via G-Tube at bedtime for sleep aid . 11/03/2024 11/08/2024 Metoprolol Tartrate Tablet 12.5 mg 12 h Give 12.5 mg via G-Tube two times a day for treats hypertension 11/03/2024 11/06/2024 Bisacodyl Rectal Suppository 10 MG 1 Insert 1 suppository rectally every 24 hours as needed for Constipation Give 1 Suppository (10mg) via rectum if no results from Milk of Magnesia after 24 hours. 11/03/2024 Glucose Gel 40 % 1 Give 1 appl ication by mouth as needed for Blood Sugars less than 60 and conscious, recheck blood sugar in 15-min if blood sugar is less than 60 may repeat x1 and call 11/03/2024 Glucagon Emergency Kit 1 MG 1 mL Inject 1 ml intramuscularly as needed for Blood Sugars less than 60 and unconscious or unresponsive, and call . 11/03/2024 Benadryl Allergy Oral Tablet 25 MG 25 mg Give 25 mg via G-Tub e every 8 hours as needed for itchiness 11/06/2024 Metoprolol Tartrate Tablet 6.25 mg 12 h Give 6.25 mg via G-Tube two times a day for treats hypertension Hold for SBP less than 110 and HR less than 60 11/06/2024 11/08/2024 Triamcinolone Acetonide Injection Suspension 40 MG/ML 1 mL Inject 1 ml intramuscularly one time only for Pain for 14 Days RIGHT SHOULDER Subacromial injection, to be administered by physiatry PAIGE. 11/07/2024 11/08/2024 Metoprolol Tartrate Oral Tablet 25 MG 0.25 {tbl} 12 h Give 0.25 tablet via G-Tube two times a day related to PORTAL HYPERTENSION (K76.6) Hold for SBP less than 110 and HR less than 60Total dose equals 6.25 MG 11/08/2024 TraZODone HCl Tablet 50 MG 1 {tbl} Give 1 tablet via G-Tube at bedtime for difficulty falling/staying asleep/insomnia 11/09/2024 Calcium Carbonate Antacid Oral Tablet Chewable 750 MG 1 {tbl} Give 1 tablet by vinod with meals for binder 11/10/2024 Medications Administered Medication Dose Frequency Status Start Date End Date Eliquis Tablet 2.5 MG 1 {tbl} 12 h 11/03/19 Calcium Acetate Tablet 667 MG 1 {tbl} Drug / Treatment Not Administered 11/09/2024 Midodrine HCl Tablet 5 MG 1 {tbl} 8 h Hospitalized 11/14/2024 Docusate Sodium Capsule 100 MG 1 {Capsule} 12 h Hospitalized 11/14/2024 oxyCODONE HCl Oral Solution 5 MG/5ML 5 mL 11/14/2024 Metoprolol Tartrate Tablet 12.5 mg 12 h 11/03/2024 Fluticasone Propionate Nasal Suspension 50 MCG/ACT 1 11/02/2024 Insulin Lispro-aabc Injection Solution 100 UNIT/ML 6 h No Sliding Scale Insulin Needed 11/06/2024 Melatonin Tablet 3 MG 2 {tbl} 11/14/19 25 Multiple Vitamin Tablet 1 {tbl} 24 h 11/13/2024 Gabapentin Oral Solution 2 mL 8 h Hospitalized 11/14/2024 Sennosides Tablet 8.6 MG 2 {tbl} 11/14/2024 TiZANidine HCl Tablet 2 MG 1 {tbl} 8 h Hospitalized 11/14/2024 Bisacodyl Rectal Suppository 10 MG 1 11/14/2024 Polyethylene Glycol Powder 17 24 h Hospitalized 11/14/2024 Eliquis Tablet 2.5 MG 1 {tbl} 12 h Hospitalized 11/14 TraZODone HCl Tablet 50 MG 1 {tbl} 11/08/2024 Metoprolol Tartrate Tablet 12.5 mg 12 h 11/06/2024 Bisacodyl Rectal Suppository 10 MG 1 11/03/2024 Glucose Gel 40 % 1 11/03/2024 Glucagon Emergency Kit 1 MG 1 mL 11/03/2024 Benadryl Allergy Oral Tablet 25 MG 25 mg 11/13/2024 Metoprolol Tartrate Tablet 6.25 mg 12 h 11/08/2024 Triamcinolone Acetonide Injection Suspension 40 MG/ML 1 mL 11/07/2024 Metoprolol Tartrate Oral Tablet 25 MG 0.25 {tbl} 12 h Hospitalized 11/14/2024 TraZODone HCl Tablet 50 MG 1 {tbl} 11/14/2024 Calcium Carbonate Antacid Oral Tablet Chewable 750 MG 1 {tbl} Hospitalized 11/14/2024 Problems Problem Status Start Date End Date MUSCLE WASTING AND ATROPHY, NOT ELSEWHERE CLASSIFIED, MULTIPLE SITES (Primary) (M62.59 - ICD-10-CM) ACTIVE 11/02/2024 ENCOUNTER FOR ATTENTION TO GASTROSTOMY (Z43.1 - ICD-10 -CM) ACTIVE 11/02/2024 ACUTE CHOLECYSTITIS (K81.0 - ICD-10-CM) ACTIVE 0 11/02/2024 OTHER ASCITES (R18.8 - ICD-10-CM) ACTIVE 025 UNSPECIFIED CIRRHOSIS OF LIVER (K74.60 - ICD-10-CM) AC TIVE 11/02/2024 END STAGE RENAL DISEASE (N18.6 - ICD-10-CM) ACTIVE 11/02/2024 DEPENDENCE ON RENAL DIALYSIS (Z99.2 - ICD-10-CM) ACTIV E 11/02/2024 TYPE 2 DIABETES MELLITUS WIT HOUT COMPLICATIONS (E11.9 - ICD-10-CM) ACTIVE 11/02/2024 PAROXYSMAL ATRIAL FIBRILLATION (I48.0 - ICD-10-CM) ACT SHAYLEE 11/02/2024 UNSPECIFIED PROTEIN-CALORIE MALNUTRITION (E46 - ICD-10 -CM) ACTIVE 11/02/2024 ANEMIA IN OTHER CHRONIC DISE ASES CLASSIFIED ELSEWHERE (D63.8 - ICD-10-CM) ACTIVE 11/02/2024 PORTAL HYPERTENSION (K76.6 - ICD-10-CM) ACTIVE 0 11/02/2024 HEART DISEASE, UNSPECIFIED (I51.9 - ICD-10-CM) ACTIVE 11/02/2024 DYSPHAGIA, UNSPECIFIED (R13.10 - ICD-10-CM) ACTIVE 11/02/2024 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 Acromioclavicular and coracoclavicular joints are also normal. A 5 x 3 mm calcification or loose body superior lateral to right humeral head without acute shoulder fracture, separation, or dislocation is seen.CONCLUSION: Mild degenerative joint disease of the right shoulder; a 5 x 3 mm calcification or loose body superior lateral to right humeral head without acute fracture or dislocation seen.ELECTRONICALLY SIGNED BY LOUISA THACKER M.D. 11/06/2024 10:46:01 AM EST.Reason for Study: M25.511 PAIN IN RIGHT SHOULDERPrincipal Result Toggler: LOUISA THACKER ([id number])Maternity Floor Supervisor: LOUANN BRADLEY ([email or web address])Pipe Threader Maternity Floor Supervisor: JOSE MANUEL 11/06/2024 10:46 am EST Encounters Encounter Performer Performer Role Encounter Diagnoses Location Date [facility] 11/02/2024 04:18 pm EST - 11/14/2024 11:13 am EST Reason For Referral Chest Pain Advance Directives Directive Description Verification Full Code Other Directive Immunizations Vaccine Date (Pneumococcal) PPSV23- Polysaccharide 23 -valent Vaccine 11/17/2023 12:00 am EST (Influenza) FLUAD - Adjuvanted - High Do se - 65+ 08/10/2024 12:00 am EDT Social History Vital Signs Vital Sign Reading Time Taken painLevel 7 {score} 11/14/2024 11:16 am EST painLevel 7 {score} 11/14/2024 09:50 am EST heartrate 67 /min 11/14/2024 10:21 am EST heartrate 67 /min 11/14/2024 10:12 am EST heartrate 75 /min 11/13/2024 04:28 pm EST heartrate 75 /min 11/13/2024 03:49 pm EST heartrate 78 /min 11/13/2024 02:01 pm EST heartrate 78 /min 11/13/2024 10:19 am EST heartrate 80 /min 11/13/2024 05:53 am EST heartrate 80 /min 11/12/2024 06:42 pm EST heartrate 86 /min 11/12/2024 10:58 am EST heartrate 86 /min 11/12/2024 10:50 am EST heartrate 80 /min 11/12/2024 05:58 am EST heartrate 80 /min 11/11/2024 04:23 pm EST temperature 97.9 [degF] 11/14/2024 10:21 am EST temperature 98.2 [degF] 11/13/2024 03:49 pm EST temperature 98.2 [degF] 11/13/2024 02:01 pm EST temperature 98.4 [degF] 11/13/2024 05:53 am EST temperature 97.9 [degF] 11/12/2024 06:42 pm EST temperature 97.9 [degF] 11/12/2024 10:58 am EST temperature 98.2 [degF] 11/12/2024 05:58 am EST respirations 18 /min 11/14/2024 10:21 am EST respirations 18 /min 11/13/2024 03:49 pm EST respirations 18 /min 11/13/2024 02:01 pm EST respirations 18 /min 11/13/2024 05:53 am EST respirations 18 /min 11/12/2024 06:42 pm EST respirations 18 /min 11/12/2024 10:58 am EST respirations 18 /min 11/12/2024 05:58 am EST systolicValue 115 mm[Hg] 11/14/2024 10:20 am EST diastolicValue 63 mm[Hg] 11/14/2024 10:20 am EST systolicValue 115 mm[Hg] 11/14/2024 10:11 am EST diastolicValue 63 mm[Hg] 11/14/2024 10:11 am EST systolicValue 148 mm[Hg] 11/13/2024 04:28 pm EST diastolicValue 71 mm[Hg] 11/13/2024 04:28 pm EST systolicValue 149 mm[Hg] 11/13/2024 03:49 pm EST diastolicValue 71 mm[Hg] 11/13/2024 03:49 pm EST systolicValue 114 mm[Hg] 11/13/2024 02:01 pm EST diastolicValue 62 mm[Hg] 11/13/2024 02:01 pm EST systolicValue 114 mm[Hg] 11/13/2024 10:19 am EST diastolicValue 62 mm[Hg] 11/13/2024 10:19 am EST systolicValue 110 mm[Hg] 11/13/2024 05:53 am EST diastolicValue 60 mm[Hg] 11/13/2024 05:53 am EST systolicValue 109 mm[Hg] 11/12/2024 06:42 pm EST diastolicValue 64 mm[Hg] 11/12/2024 06:42 pm EST systolicValue 127 mm[Hg] 11/12/2024 10:58 am EST diastolicValue 78 mm[Hg] 11/12/2024 10:58 am EST systolicValue 127 mm[Hg] 11/12/2024 10:50 am EST diastolicValue 78 mm[Hg] 11/12/2024 10:50 am EST systolicValue 94 mm[Hg] 11/12/2024 05:58 am EST diastolicValue 64 mm[Hg] 11/12/2024 05:58 am EST oxygenSaturation 93 % 11/14/2024 10:1 2 am EST oxygenSaturation 95 % 11/13/2024 03:4 9 pm EST oxygenSaturation 97 % 11/13/2024 02:0 1 pm EST oxygenSaturation 98 % 11/13/2024 05:5 3 am EST oxygenSaturation 99 % 11/12/2024 06:4 2 pm EST oxygenSaturation 97 % 11/12/2024 10:5 8 am EST oxygenSaturation 98 % 11/12/2024 05:5 8 am EST oxygenSaturation 99 % 11/11/2024 04:2 3 pm EST weight 130.4 [lb_av] 11/14/2024 05:05 am EST weight 130.2 [lb_av] 11/13/2024 05:57 am EST weight 130.4 [lb_av] 11/12/2024 05:57 am EST
--- OUTSIDE RECORDS SUMMARY | 2024-11-14 13:01 | XMS_ITS | Encounter Summary ---
Author Organization [facility] Address [address] [address] Phone Care Team Providers Care Beef Cattle Specialist Name Role Phone Delores Painter MD Primary Care Provider [phone] Encounter Details Date Type Department Care Team (Late st Contact Info) Description 11/14/2024 Treatment [facility]. [address] [address] Cherrie Infante MD [address] [address] Social History Tobacco Use Types [...] Dialysis Note - Cherrie Infante MD - 11/14/2024 12:00 AM EST Patient: Alton Thornton : 1960 Note Type: Dialysis Rounds-Basic Service Date: 11/14/2024 This patient was personally seen for a basic visit as part of routine monthly dialysis care for end stage renal disease. Attending Perennial House Manager: CHERRIE INFANTE MD Dialysis Location: [facility] Schedule: Shift: 1 OVERVIEW Patient is stable. ADEQUACY ASSESSMENT spKt/V (Daugirdas II) 1.51 (07/24/24) 1.32 (07/19/24) 1.50 (07/14/24) eKdrt/V 1.30 (07/24/24) 1.16 (07/19/24) 1.33 (07/14/24) % Urea Reduction 74 (07/24/24) 67 (07/19/24) 73 (07/14/24) BUN 110 (07/24/24) 66 (07/19/24) 44 (07/14/24) BUN Post Dialysis 29 (07/24/24) 22 (07/19/24) 12 (07/14/24) Creatinine 7.99 (07/19/24) 8.51 (06/21/24) 7.69 (05/24/24) Bicarbonate (CO2) 24 (07/19/24) 25 (06/21/24) 29 (05/24/24) Sodium 136 (07/19/24) 136 (06/21/24) 135 (05/24/24) ANEMIA ASSESSMENT Hgb 10.4 (11/09/24) Hemoglobin 13.2 (08/02/24) 13.0 (07/26/24) 13.4 (07/19/24) Iron Saturation (TSat) 26 (07/19/24) 22 (06/21/24) 32 (05/24/24) Ferritin 671 (07/19/24) 861 (06/21/24) 888 (05/24/24) Iron 57 (07/19/24) 49 (06/21/24) 70 (05/24/24) TIBC 222 (07/19/24) 218 (06/21/24) 218 (05/24/24) Reticulocyte Hemoglobin 35.2 (07/19/24) 32.5 (04/21/24) 32.9 (01/19/24) MCV 102 (07/19/24) 100 (04/21/24) 97 (01/19/24) BMM ASSESSMENT Calcium 9.2 07/19/24 9.7 06/21/24 9.5 05/24/24 [...] 01/19/24 Aluminum <5 07/19/24 NUTRITION ASSESSMENT Albumin 3.7 07/19/24 3.9 06/21/24 3.7 05/24/24 Potassium 5.4 07/19/24 4.4 06/21/24 4.6 05/24/24 eNPCR 1.31 07/24/24 0.99 07/19/24 0.80 07/14/24 Hemoglobin A1C 6.9 07/19/24 6.8 04/21/24 6.7 01/19/24 ADDITIONAL LABS WBC 6.48 (07/19/24) 6.13 (04/21/24) 5.53 (01/19/24) Hepatitis B Surface Ab >1,000 (07/19/24) >1,000 (01/19/24) Signed by: CHERRIE INFANTE MD on 11/14/2024 at 08:30:32 AM documented in this encounter Plan of Treatment Not on file documented as of this encounter Visit Diagnoses Not on filedocumented in this encounter Care Teams Beef Cattle Specialist Relationship Specialty Start Date End Date Delores Painter MD [address] PCP - General 10/28/20 documented as of this encounter
--- OUTSIDE RECORDS SUMMARY | 2024-11-14 13:01 | XMS_ITS | Clinical Summary ---
Author Organization [facility] Address [address] [place] [address] Phone Care Team Providers Care Multi Care Technician Name Role Phone Larissa Pérez MD Primary Care Provider [phone] Surgical History Surgery Date Site/Laterality Comments COLONOSCOPY 07/09/2017 PROCEDURE: HISTORICAL COLONOSCOPY OTHER SURGICAL HISTORY 2015 PROCEDURE: HISTORY OTHER; COMMENT: Creation of graft fistula for dialysis OTHER SURGICAL HISTORY PROCEDURE: CO ABLATE L/R ATRIAL FIBRIL W/ISOLATED PULM VEIN Medical History Medical History Date Comments Cataract 06/26/2021 DX:Cataract Cutaneous neurofibroma DX:Cutane ous neurofibroma; COMMENT: isolated ESRD (end stage renal diseas e) ([facility]) DX:ESRD (end stage renal dis ease) ([facility]); COMMENT: follows with Dr. Hernandez Gout DX:Gout Poor dentition DX:Poor dentitio n Prediabetes DX:Prediabetes Type 2 diabetes mellitus ([facility]) DX:Type 2 diabetes mellitus ([facility]) Family History Medical History Relation Name Comments Lung cancer Father Lung cancer Mother Relation Name Status Comments Father Mother Social History Tobacco Use Types Packs/Day Years Used Date Smoking Tobacco: Never Smokeless Tobacco: Never Alcohol Use Standard Drinks/Week Comments Never 0 (1 standard drink = 0.6 oz pur e alcohol) Sex and Gender Information Value Date Recorded Sex Assigned at Not on file Gender Identity Not on file Sexual Orientation Not on file Job Start Date Occupation Industry Not on file Not on file Not on file Obstetrics History Last Filed Vital Signs Vital Sign Reading Time Taken Comments Blood Pressure 124/77 12/25/2022 10:04 AM EST R Arm Pulse 93 12/01/2022 1:32 PM EST Temperature - - Respiratory Rate - - Oxygen Saturation - - Inhaled Oxygen Concentration - - Weight 97.5 kg (215 lb) 12/25/2022 10:04 AM EST Height 177.8 cm (5' 10 ) 12/25/2022 10:04 AM EST Body Mass Index 30.85 12/25/2022 10:04 AM EST Plan of Treatment Upcoming Encounters Date Type Department Care Team (Late st Contact Info) Description 11/27/2024 8:00 AM EST Ancillary Procedure [facility] [address] [facility] [address] [place] [address] Health Maintenance Due Date Last Done Comments DTaP,Tdap,and Td Vaccines (1 - Tdap) 1978 Zoster Vaccines (1 of 2) 2009 RSV Immunization Patients 60 + Years Old (1 - Risk 60-74 years 1-dose series) 2019 Abdominal Aortic Aneurysm (A AA) Screen 09/15/2022 Cholesterol Screening (Lipid Panel) 09/15/2022 Colorectal Cancer Screening: Colonoscopy 09/15/2022 Depression Screening 09/15/2022 Hepatitis C Screening 09/15/2022 Medicare Annual Wellness Visit 09/15/2022 Social Influencers of Health Screening 09/15/2022 Hypertension/CHF/CAD Annual BMP Blood Test 10/03/2022 Falls Risk Assessment 02/29/2024 Pneumococcal Vaccine: 65+ Ye ars (1 of 1 - PCV) 02/29/2024 COVID-19 Vaccine (1 - 2023-2 5 season) 2024 Influenza Vaccine (#1) 2024 HIB Vaccines Aged Out No longer eligi ble based on patient's age to complete this topic HPV Vaccines Aged Out No longer eligi ble based on patient's age to complete this topic Hepatitis A Vaccines Aged Out No long er eligible based on patient's age to complete this topic Hepatitis B Vaccines Aged Out No long er eligible based on patient's age to complete this topic IPV Vaccines Aged Out No longer eligi ble based on patient's age to complete this topic MMR Vaccines Aged Out No longer eligi ble based on patient's age to complete this topic Meningococcal ACWY Vaccine Aged Out N o longer eligible based on patient's age to complete this topic Pneumococcal Vaccine: Pediat rics (0 to 5 Years) and At-Risk Patients (6 to 64 Years) Aged Out No longer eligible b ased on patient's age to complete this topic RSV Immunization Patients Un cyndy 20 months Aged Out No longer eligible b ased on patient's age to complete this topic Varicella Vaccines Aged Out No longer eligible based on patient's age to complete this topic Care Teams Multi Care Technician Relationship Specialty Start Date End Date Larissa Pérez MD [address] [place] [address] PCP - General 10/19/23
[2024-11-14 13:02] LABS: Venous Blood Gas Refer to POC result
[2024-11-14 13:11] LABS: Calcium 9.4 mg/dL (8.4-10.2)
[2024-11-14 13:16] LABS: Alanine Aminotransferase 74 U/L (0-40); Albumin Level 3.6 g/dL (3.5-5.0); Alkaline Phosphatase 293 U/L (39-117); Anion Gap 16 (12-20); Aspartate Amino Transferase 55 U/L (5-37); Bilirubin Direct 0.6 mg/dL (0.0-0.5); Bilirubin Total 1.2 mg/dL (0.0-1.0); Blood Urea Nitrogen 35 mg/dL (9-16); Calcium 9.1 mg/dL (8.4-10.2); Carbon Dioxide 28 mmol/L (22-29); Chloride 97 mmol/L (96-108); Estimated Glomerular Filt Rate 18; Glucose Random 93 mg/dL (60-115); Lipase 81 U/L (8-78); Magnesium 2.5 mg/dL (1.6-2.6); Phosphorus 3.2 mg/dL (2.7-4.5); Potassium 5.2 mmol/L (3.3-5.1); Sodium 136 mmol/L (135-145); Total Protein 8.5 g/dL (6.5-8.0)
[2024-11-14 13:24] LABS: Troponin-I High Sensitivity 52.5 ng/L (<3.5-35.0)
[2024-11-14 13:42] LABS: Influenza A PCR NEGATIVE (Negative); Influenza B PCR NEGATIVE (Negative); Resp Syncy Virus RNA Qual PCR NEGATIVE (Negative); SARS COV2 PCR INHOUSE POSITIVE (Negative)
[2024-11-14] MEDS: iohexoL 350 MG/ML 100 ML INFUS..BTL 85 ML IV (14:19)
--- NOTE | 2024-11-14 15:01 | ECG_ITS ---
Test Reason : cp Blood Pressure : */* mmHG Vent. Rate : 71 BPM Atrial Rate : 71 BPM P-R Int : 192 ms QRS Dur : 80 ms QT Int : 390 ms P-R-T Axes : 93 -7 67 degrees QTcB Int : 423 ms Normal sinus rhythm Low voltage QRS Nonspecific T wave abnormality Abnormal ECG When compared with ECG of 14-Nov-2024 11:28, Sinus rhythm has replaced Atrial fibrillation Vent. rate has decreased by 47 bpm Referred By: Carmenza Hull Electronically Signed By: TASHIA HODGE
[2024-11-14 15:05] LABS: MANUAL DIFF FLAG NO
--- NOTE | 2024-11-14 15:07 | PHA.MEDREC ---
Pharmacy Consult ? Medication Reconciliation Pharmacy has completed the medication reconciliation, utilized list from [facility].
[2024-11-14 15:16] LABS: INTERNATIONAL NORM RATIO 1.1 (0.9-1.1); Prothrombin Time 12.4 SEC (10.9-12.4)
[2024-11-14 15:30] LABS: Basophils Absolute Auto 0.1 X10*3/uL (0.0-0.2); Eosinophils Absolute Auto 0.2 X10*3/uL (0.0-0.4); Eosinophils Percent Auto 1.9 % (0-4); Hematocrit 34.9 % (42.0-52.0); Hemoglobin 11.9 g/dl (14.0-18.0); Imm Gran Abs Auto 0.07 X10*3/uL (0.00-0.03); Imm Gran Pct Auto 0.9 % (0.0-0.4); Lymphocytes Absolute Auto 1.2 X10*3/uL (1.2-4.9); Mean Corpuscular HGB Conc 34.1 g/dl (31.0-36.0); Mean Corpuscular Hemoglobin 33.9 pg (27.0-33.0); Mean Corpuscular Volume 99.4 fL (80.0-98.0); Mean Platelet Volume 11.2 fL (9.4-12.4); Monocytes Absolute Auto 0.9 X10*3/uL (0.1-1.2); Monocytes Percent Auto 10.6 % (2-11); Neutrophils Absolute Auto 5.9 x10*3/uL (2.0-8.3); Neutrophils Percent Auto 71.6 % (45-73); Platelet Count 127 X10*3/uL (160-400); Red Blood Count 3.51 X10*6/uL (4.60-5.80); Red Cell Distribution Width 15.7 % (11.0-16.0); White Blood Count 8.2 X10*3/uL (4.8-10.8)
[2024-11-14 16:21] LABS: Potassium 5.8 mmol/L (3.3-5.1)
[2024-11-14 16:27] LABS: VBG Base Excess 11.9 mmol/L; VBG HCO3 36 mmol/L (22-26); VBG pCO2 46 mmHg; VBG pO2 50 mmHg
[2024-11-14 16:31] LABS: Venous Blood Gas Refer to POC result
[2024-11-14 16:34] LABS: Troponin-I High Sensitivity 68.5 ng/L (<3.5-35.0)
[2024-11-14] MEDS: Sodium Zirconium Cyclosilicate 5 GM POWD.PACK 15 GM PO (17:19)
== END 2024-11-14 18:12 | disposition home or self-care (01) ==
PROVIDERS: Emergency Provider Emergency Medicine Emergency Medical Services; PCP Student in an Organized Health Care Education/Training Program
DX: U07.1 COVID-19 (principal); I48.91 Unspecified atrial fibrillation; E87.5 Hyperkalemia; R07.9 Chest pain, unspecified; Z79.01 Long term (current) use of anticoagulants; Z79.899 Other long term (current) drug therapy
CPT/HCPCS: 0241U; 36415; 70450; 71260; 74177; 80048; 80076; 82310; 82803; 83690; 83735; 84100; 84132; 84484; 85025; 85610; 93005; 96374; 99284; 99285; Q9967

== ENCOUNTER → 2024-11-14 11:28 | Outpatient (BNV) | payer MEDICARE, MEDICAID, SELFPAY | PROVIDERS: Emergency Provider Emergency Medicine Emergency Medical Services; PCP Student in an Organized Health Care Education/Training Program; Visit Provider Internal Medicine | DX: R07.9 Chest pain, unspecified (principal) | CPT/HCPCS: 93010 ==

== ENCOUNTER → 2024-11-14 11:31 | Outpatient (BNV) | payer MEDICARE, MEDICAID, SELFPAY | PROVIDERS: Emergency Provider Emergency Medicine Emergency Medical Services; PCP Student in an Organized Health Care Education/Training Program; Visit Provider Radiology Diagnostic Radiology | DX: K83.8 Other specified diseases of biliary tract (principal); I25.10 Atherosclerotic heart disease of native coronary artery without angina pectoris; I70.90 Unspecified atherosclerosis; J98.11 Atelectasis; I67.89 Other cerebrovascular disease; J34.89 Other specified disorders of nose and nasal sinuses; J32.9 Chronic sinusitis, unspecified | CPT/HCPCS: 70450; 71260; 74177 ==

== ENCOUNTER 2024-12-26 11:49 | Outpatient (REF) | payer MEDICARE, SELFPAY ==
--- OUTSIDE RECORDS SUMMARY | 2024-12-26 14:37 | XMS_ITS | Encounter Summary ---
Author Organization [facility] Address [address] [address] Phone Care Team Providers Care Magazine Designer Name Role Phone Delores Painter MD Primary Care Provider [phone] Encounter Details Date Type Department Care Team (Late st Contact Info) Description 12/26/2024 Treatment [facility] [address] [address] Cherrie Infante MD [address] [address] End stage renal disease; Dependence on renal dialysis Social History Tobacco Use Types Packs/Day Years [...] Dialysis Note - Cherrie Infante MD - 12/26/2024 12:00 AM EDT Patient: [place] : 1960 Note Type: Dialysis Rounds-Basic Service Date: 12/26/2024 This patient was personally seen for a basic visit as part of routine monthly dialysis care for end stage renal disease. Attending Lotteries Agent: CHERRIE INFANTE MD Dialysis Location: [facility] Schedule: Shift: 1 OVERVIEW Patient is stable. HOME MEDICATIONS Current [facility] [place] [facility] Medications acetaminophen (TYLENOL) tablet Take 325 mg by mouth every 6 (six) hours if needed for mild pain Start Date: apixaban (ELIQUIS) tablet Take 1 tablet by mouth twice a day Start Date: 04/26/2021 atorvastatin (LIPITOR) tablet 0 Refills, Maintenance, 07/25/21 11:22:00 EDT, Partial fill upon patient request if the prescription is for a schedule II opioid drug. Start Date: 07/25/2021 carvedilol (COREG) 25 MG tablet Take 1 tablet (25 mg total) by mouth in the morning and 1 tablet (25 mg total) in the evening. Start Date: 11/11/2021 FOSRENOL 1000 MG PO PACK MIX 2 PACKETS WITH SMALL AMOUNT OF APPLESAUCE OR SIMILAR FOOD. EAT IMMEDIATELY 3 TIMES/DAY WITH MEALS Start Date: 01/05/2023 predniSONE (DELTASONE) tablet TAKE 3 TABLETS BY MOUTH ONCE DAILY FOR 4 DAYS THEN STOP Start Date: 07/13/2024 VELPHORO 500 MG PO CHEW 3 tablets 3 (three) times a day before meals 2 tablets 3 times/ day AND once tablet with snacks Start Date: 04/02/2020 Current Tonia [place] Allergies Allergen: No Known Allergies ADEQUACY ASSESSMENT spKt/V (Daugirdas II) 1.51 (07/24/24) 1.32 (07/19/24) 1.50 (07/14/24) Kt/V, Natural Log 1.70 (12/21/24) eKdrt/V 1.30 (07/24/24) 1.16 (07/19/24) 1.33 (07/14/24) UREA REDUCTION RATIO (%) 77 (12/21/24) % Urea Reduction 74 (07/24/24) 67 (07/19/24) 73 (07/14/24) BUN 56 (12/21/24) 110 (07/24/24) 66 (07/19/24) BUN Post Dialysis 13 (12/21/24) 29 (07/24/24) 22 (07/19/24) Creatinine 5.64 (12/21/24) 7.99 (07/19/24) 8.51 (06/21/24) Bicarbonate (CO2) 27 (12/21/24) 24 (07/19/24) 25 (06/21/24) Sodium 135 (12/21/24) 136 (07/19/24) 136 (06/21/24) ANEMIA ASSESSMENT Hgb 8.7 (12/21/24) 8.4 (12/07/24) 10.4 (11/09/24) Hemoglobin 13.2 (08/02/24) 13.0 (07/26/24) 13.4 (07/19/24) Iron Saturation (TSat) 39 (12/21/24) 26 (07/19/24) 22 (06/21/24) Ferritin 1,501 (12/21/24) 671 (07/19/24) 861 (06/21/24) Iron 87 (12/21/24) 57 (07/19/24) 49 (06/21/24) TIBC 224 (12/21/24) 222 (07/19/24) 218 (06/21/24) Reticulocyte Hemoglobin 35.2 (07/19/24) 32.5 (04/21/24) 32.9 (01/19/24) MCV 105.0 (12/21/24) 102 (07/19/24) 100 (04/21/24) Platelets 152 (12/21/24) BMM ASSESSMENT Calcium, Adjusted Total 9.6 12/21/24 Calcium 9.5 12/21/24 9.2 07/19/24 9.7 06/21/24 Corrected Calcium 9.4 07/19/24 9.8 06/21/24 9.7 05/24/24 Phosphorus, Serum 5.0 12/21/24 3.2 11/14/24 Phosphorus 6.8 07/19/24 8.4 06/21/24 7.5 05/24/24 Ca*PO4 47.5 12/21/24 Calcium Phosphorus Product 63 07/19/24 81 06/21/24 71 05/24/24 PTH 375 06/21/24 377 05/24/24 512 04/21/24 Vitamin D, 25-OH, Total 23.8 07/19/24 Magnesium 2.3 12/21/24 2.1 07/19/24 2.0 06/21/24 Alkaline Phosphatase 88 12/21/24 110 07/19/24 130 04/21/24 Aluminum <5 07/19/24 NUTRITION ASSESSMENT Albumin 3.9 12/21/24 3.7 07/19/24 3.9 06/21/24 Potassium 5.4 12/21/24 5.4 07/19/24 4.4 06/21/24 eNPCR 1.31 07/24/24 0.99 07/19/24 0.80 07/14/24 Hemoglobin A1C 6.9 07/19/24 6.8 04/21/24 6.7 01/19/24 ADDITIONAL LABS White Blood Cells 7.1 (12/21/24) WBC 6.48 (07/19/24) 6.13 (04/21/24) 5.53 (01/19/24) Hepatitis B Surface Ab >1,000 (07/19/24) >1,000 (01/19/24) Signed by: CHERRIE INFANTE MD on 12/26/2024 at 08:45:57 AM documented in this encounter Plan of Treatment Upcoming Encounters Date Type Department Care Team (Late st Contact Info) Description 01/08/2025 7:30 AM EDT Scheduled Only [facility] [address] [place] [address] [place] [address] documented as of this encounter Visit Diagnoses Diagnosis End stage renal disease Dependence on renal dialysis documented in this encounter Care Teams Magazine Designer Relationship Specialty Start Date End Date Delores Painter MD [address] PCP - General 10/28/20 documented as of this encounter
--- OUTSIDE RECORDS SUMMARY | 2024-12-26 14:37 | XMS_ITS | Encounter Summary ---
Author Organization [facility] Address [address] [address] Phone Care Team Providers Care Art Department Head Name Role Phone Delores Painter MD Primary Care Provider [phone] Encounter Details Date Type Department Care Team (Late st Contact Info) Description 12/14/2024 Treatment [facility] [address] [address] Cherrie Infante MD [address] [address] Social History Tobacco Use Types [...] Dialysis Note - Cherrie Infante MD - 12/14/2024 12:00 AM EST Patient: Alton [place] : 1960 Note Type: Dialysis Rounds-Basic Service Date: 12/14/2024 This patient was personally seen for a basic visit as part of routine monthly dialysis care for end stage renal disease. Attending Business Objects: CHERRIE INFANTE MD Dialysis [facility] Schedule: Shift: 1 OVERVIEW Patient is [...] 136 (06/21/24) 135 (05/24/24) ANEMIA ASSESSMENT Hgb 8.4 (12/07/24) 10.4 (11/09/24) Hemoglobin 13.2 (08/02/24) [...] 07/19/24 9.8 06/21/24 9.7 05/24/24 Phosphorus, Serum 3.2 11/14/24 Phosphorus 6.8 07/19/24 8.4 06/21/24 [...] (01/19/24) Signed by: CHERRIE INFANTE MD on 12/14/2024 at 08:26:12 AM documented in this encounter Plan of Treatment Upcoming Encounters Date Type Department Care Team (Late st Contact Info) Description 01/08/2025 7:30 AM EDT Scheduled Only [facility] - [facility] [address] [place] [address] documented as of this encounter Visit Diagnoses Not on filedocumented in this encounter Care Teams Art Department Head Relationship Specialty Start Date End Date Delores Painter MD [address] PCP - General 10/28/20 documented as of this encounter
--- OUTSIDE RECORDS SUMMARY | 2024-12-26 14:37 | XMS_ITS | Clinical Summary ---
Author Organization [facility] Address [address] [place] [phone] Phone Care Team Providers Care Casserole Preparer Name Role Phone Delores Painter MD Primary Care Provider Allergies No known active allergies Medications Velphoro [...] Encounters Date Type Department Care Team Description 12/26/2024 Treatment [facility] [address] [address] Zeeshan Infante MD End stage renal disease; Dependence on renal dialysis 12/19/2024 Treatment [facility] [address] [address] Zeeshan Infante MD End stage renal disease; Dependence on renal dialysis 12/14/2024 Treatment [facility] [address] [address] Zeeshan Infante MD 12/12/2024 Treatment [facility] [address] [address] Zeeshan Infante MD 12/02/2024 Treatment [facility] [address] [address] Zeeshan Infante MD 11/21/2024 Treatment [facility] [address] [address] Zeeshan Infante MD 11/16/2024 Treatment [facility] [address] [address] Zeeshan Infante MD 11/14/2024 Treatment [facility] [address] [address] Zeeshan Infante MD 11/10/2024 Telephone [facility] [address] [place] [address] [place] [address] Katheryn Purvis 11/09/2024 Telephone [facility] [address] [place] [address] [place] [address] Jennifer Suarez 11/09/2024 Treatment [facility] [address] [address] Zeeshan Infante MD 10/02/2024 Telephone [facility] [address] [place] [address] [place] [address] Augusta Spencer from Last 3 Months Immunizations [...] 06/13/2024 11:07 AM EDT Plan of Treatment Upcoming Encounters Date Type Department Care Team (Late st Contact Info) Description 01/08/2025 7:30 AM EDT Scheduled Only [facility] [place] [address] [address] [place] [address] Health Maintenance Due Date Last Done Comments [...] 08/02/2021, Additional history exists Diabetes: Hemoglobin A1C 10/19/20242 024, 04/21/2024, 01/19/2024, Additional history exists Pneumococcal Vaccine: 65+ Ye ars (4 of 4 - PPSV23 or PCV20) 11/17/2028 11/17/2023, 11/15/2018, 09/15/2018 Pneumococcal Vaccine: Pediat rics (0 to 5 Years) and At-Risk Patients (6 to 64 Years) (4 of 4 - PPSV23 or PCV20) 11/17/2028 11/17/2023, 11/15/2018, 09/15/2018 Procedures Procedure Name Priority Date/Time Associated Diagnosis Comments HEPATITIS B SURFACE ANTIGEN W/REFL CONFIRM Routine 12/21/2024 3:00 AM EST FERRITIN Routine 12/21/2024 3:00 AM EST PROTEIN, TOTAL, SERUM Routine 12/21/2024 3:00 AM EST MAGNESIUM Routine 12/21/2024 3:00 AM EST TRANSFERRIN SATURATION Routine 3:00 AM EST ELECTROLYTE PANEL Routine 12/21/2024 3:0 0 AM EST GLUCOSE, RANDOM Routine 12/21/2024 3:00 AM EST LIH (HC) Routine 12/21/2024 3:00 AM EST CREATININE, SERUM Routine 12/21/2024 3:0 0 AM EST LACTATE DEHYDROGENASE Routine 12/21/2024 3:00 AM EST BILIRUBIN, TOTAL Routine 12/21/2024 3:00 AM EST AST Routine 12/21/2024 3:00 AM EST ALT Routine 12/21/2024 3:00 AM EST ALKALINE PHOSPHATASE Routine 12/21/2024 3:00 AM EST CALCIUM PHOSPHORUS PRODUCT, ADJUSTED (HC) Routine 12/21/2024 3:00 AM EST KT/V NATURAL LOG, URR (HC) Routine 12/21/2024 3:00 AM EST CBC AND DIFFERENTIAL Routine 12/21/2024 3:00 AM EST HEMOGLOBIN Routine 12/07/2024 3:00 AM EST LIH (HC) Routine 11/14/2024 3:00 AM EST PHOSPHATE ( PHOSPHORUS) Routine 11/14/2024 3:00 AM EST HEMOGLOBIN AND HEMATOCRIT, BLOOD Routine 11/09/2024 3:00 AM EST SPECIAL CHEMISTRY Routine 07/19/2024 from Last 3 Months or Most Recently Relevant to Health Maintenance Results * LIH (12/21/2024 3:00 AM EST) Only the most recent of2 resultswithin the time period is included. Lipemia Normal Normal [facility] Icterus Normal Normal [facility] Hemolysis Normal Normal [facility] 12/21/2024 3:00 AM EST 12/22/2024 1:52 PM EST Zeeshan Infante MD LAB HISTORICA [id number] RESULTS Final Result [facility] [address] [place] [address] * (ABNORMAL) Kt/V Natural Log, URR (12/21/2024 3:00 AM EST) Treatment Time 216 min [facility] Pre-Weight, lb 65.9 kg [facility] Post-Weight, lb 63.7 kg [facility] Ultrafiltration Rate 10 <=13 mL/kg/hr [facility] Comment: Recommend achieving Ultrafiltration Rate (UFR) <=10 mL/kg/hr References: Julio Cesar TY et al. Kidney Int. 2010; 79(2):250-257 BUN 56(H) 7 - 25 mg/dL [facility] BUN Post Dialysis 13 7 - 25 mg/dL [facility] UREA REDUCTION RATIO (%) 77 >=65 % [facility] Kt/V Natural Log 1.70 >=1.2 [facility] 12/21/2024 3:00 AM EST 12/22/2024 1:52 PM EST us Zeeshan Infante MD LAB HISTORICA [id number] RESULTS Final Result Performing Organization Address [facility] de Phone Number [facility] [address] [place] [address] * Calcium Phosphorus Product, Adjusted (12/21/2024 3:00 AM EST) Pathologist [facility] Albumin 3.9 3.6 - 5.4 g/dL [facility] Calcium 9.5 8.6 - 10.3 mg/dL [facility] Phosphorus, Serum 5.0 2.5 - 5.0 mg/dL [facility] Ca*PO4 47.5 <55.0 mg2/dL2 [facility] Calcium, Adjusted Total 9.6 8.6 - 10.3 mg/dL [facility] CA*PO4 CORRCTD 48.0 <55.0 mg2/dL2 [facility] 12/21/2024 3:00 AM EST 12/22/2024 1:52 PM EST Zeeshan Infante MD LAB HISTORICA [id number] RESULTS Final Result Performing Organization Address [facility] de Phone Number [facility] [address] [place] [address] * Hepatitis B Surface Ag w/Reflex Confirmation (12/21/2024 3:00 AM EST) [facility] Hep B Surface Antigen Negative Negative [facility] 12/21/2024 3:00 AM EST 12/22/2024 1:52 PM EST Zeeshan Infante MD LAB BLOOD ORDERABLES Final Result Performing Organization Address [facility] de Phone Number [facility] [address] [place] [address] * (ABNORMAL) TSAT (12/21/2024 3:00 AM EST) Pathologist [facility] Iron 87 65 - 175 ug/dL [facility] Transferrin 160(L) 215 - 365 mg/dL [facility] TIBC 224 211 - 406 ug/dL [facility] Iron Saturation (TSat) 39 22 - 52 % [facility] 12/21/2024 3:00 AM EST 12/22/2024 1:52 PM EST us Zeeshan Infante MD LAB BLOOD ORDERABLES Final Result [facility] [address] [place] [address] * (ABNORMAL) CBC and Differential (12/21/2024 3:00 AM EST) DIFFERENTIAL MANUAL, 2 Not Indicated [facility] White Blood Cells 7.1 4.2 - 9.1 K/uL [facility] RBC 2.40(L) 4.63 - 6.08 M/uL [facility] Hgb 8.7(L) 13.7 - 17.5 g/dL [facility] Hemoglobin x 3 26.1(L) 41.1 - 52.5 g/dL [facility] Hematocrit 25.2(L) 40.1 - 51.0 % [facility] MCV 105.0(H) 79.0 - 92.2 fL [facility] MCH 36.3(H) 25.7 - 32.2 pg [facility] MCHC 34.5 32.3 - 36.5 g/dL [facility] Platelets 152(L) 163 - 337 K/uL [facility] RDW 14.7(H) 11.6 - 14.4 % [facility] Neutrophils Relative 72.7(H) 34.0 - 67.9 % [facility] Lymphocytes Relative 12.0(L) 21.8 - 53.1 % [facility] Monocytes 9.3 5.3 - 12.2 % [facility] Eosinophils Relative 4.2 0.8 - 7.0 % [facility] Basophils Relative 0.8 0.2 - 1.2 % [facility] Immature Granulocytes 1.0 0.0 - 1.0 % [facility] 12/21/2024 3:00 AM EST 12/22/2024 1:52 PM EST us Zeeshan Infante MD LAB BLOOD ORDERABLES Final Result Performing Organization Address City/[facility]/ZIP Co de Phone Number [facility] [address] [place] [address] * ALT (12/21/2024 3:00 AM EST) ALT (SGPT) 19 10 - 49 U/L [facility] 12/21/2024 3:00 AM EST 12/22/2024 1:52 PM EST us Zeeshan Infante MD LAB BLOOD ORDERABLES Final Result Performing Organization Address [facility] Phone Number [facility] [address] [place] [address] * AST (12/21/2024 3:00 AM EST) AST (SGOT) 23 <34 U/L [facility] 12/21/2024 3:00 AM EST 12/22/2024 1:52 PM EST us Zeeshan Infante MD LAB BLOOD ORDERABLES Final Result Performing Organization Address [facility] Phone Number [facility] [address] [place] [address] * Protein, total (12/21/2024 3:00 AM EST) Total Protein 7.0 6.4 - 8.9 g/dL [facility] 12/21/2024 3:00 AM EST 12/22/2024 1:52 PM EST us Zeeshan Infante MD LAB BLOOD ORDERABLES Final Result Performing Organization Address [facility] de Phone Number [facility] [address] [place] [address] * Alkaline phosphatase (12/21/2024 3:00 AM EST) Alkaline Phosphatase 88 46 - 116 U/L [facility] 12/21/2024 3:00 AM EST 12/22/2024 1:52 PM EST us Zeeshan Infante MD LAB BLOOD ORDERABLES Final Result Performing Organization Address [facility]/State/ZIP Co de Phone Number [facility] [address] [place] [address] * Magnesium (12/21/2024 3:00 AM EST) Pathologist [facility] Magnesium 2.3 1.9 - 2.7 mg/dL [facility] 12/21/2024 3:00 AM EST 12/22/2024 1:52 PM EST Zeeshan Infante MD LAB BLOOD ORDERABLES Final Result Performing Organization Address [facility] de Phone Number [facility] [address] [place] [address] * (ABNORMAL) Lactate dehydrogenase (12/21/2024 3:00 AM EST) Pathologist [facility] LDH 316(H) 120 - 246 U/L [facility] 12/21/2024 3:00 AM EST 12/22/2024 1:52 PM EST us Zeeshan Infante MD LAB BLOOD ORDERABLES Final Result Performing Organization Address [facility] de Phone Number [facility] [address] [place] [address] * Glucose, random (12/21/2024 3:00 AM EST) Pathologist [facility] Glucose 108 74 - 109 mg/dL [facility] 12/21/2024 3:00 AM EST 12/22/2024 1:52 PM EST Zeeshan Infante MD LAB BLOOD ORDERABLES Final Result Performing Organization Address [facility] Co de Phone Number [facility] [address] [place] [address] * (ABNORMAL) Ferritin (12/21/2024 3:00 AM EST) Pathologist [facility] Ferritin 1,501(H) 22 - 322 ng/mL [facility] 12/21/2024 3:00 AM EST 12/22/2024 1:52 PM EST us Zeeshan Infante MD LAB BLOOD ORDERABLES Final Result Performing Organization Address [facility] Co de Phone Number [facility] [address] [place] [address] * (ABNORMAL) Creatinine, serum (12/21/2024 3:00 AM EST) Creatinine 5.64(H) 0.70 - 1.30 mg/dL [facility] 12/21/2024 3:00 AM EST 12/22/2024 1:52 PM EST us Zeeshan Infante MD LAB BLOOD ORDERABLES Final Result Performing Organization Address [facility] de Phone Number [facility] [address] [place] [address] * Bilirubin, total (12/21/2024 3:00 AM EST) Total Bilirubin 0.3 0.3 - 1.2 mg/dL [facility] 12/21/2024 3:00 AM EST 12/22/2024 1:52 PM EST us Zeeshan Infante MD LAB BLOOD ORDERABLES Final Result Performing Organization Address [facility] de Phone Number [facility] [address] [place] [address] * (ABNORMAL) Electrolyte panel (12/21/2024 3:00 AM EST) Sodium 135(L) 136 - 145 mEq/L [facility] Potassium 5.4(H) 3.4 - 5.0 mEq/L [facility] Chloride 100 98 - 107 mEq/L [facility] Bicarbonate (CO2) 27 21 - 31 mEq/L [facility] Anion Gap 8 3 - 14 mEq/L [facility] 12/21/2024 3:00 AM EST 12/22/2024 1:52 PM EST us Zeeshan Infante MD LAB BLOOD ORDERABLES Final Result Performing Organization Address [facility] de Phone Number [facility] [address] [place] [address] * (ABNORMAL) Hemoglobin (12/07/2024 3:00 AM EST) Hgb 8.4(L) 13.7 - 17.5 g/dL [facility] Hemoglobin x 3 25.2(L) 41.1 - 52.5 g/dL [facility] 12/07/2024 3:00 AM EST 12/08/2024 12:36 PM EST us Zeeshan Infante MD LAB BLOOD ORDERABLES Final Result Performing Organization Address [facility] Phone Number [facility] [address] [place] [address] * Phosphorus (11/14/2024 3:00 AM EST) Phosphorus, Serum 3.2 2.5 - 5.0 mg/dL [facility] 11/14/2024 3:00 AM EST 11/15/2024 1:14 PM EST us Zeeshan Infante MD LAB BLOOD ORDERABLES Final Result Performing Organization Address [facility] Phone Number [facility] [address] [place] [address] * (ABNORMAL) Hemoglobin and hematocrit (11/09/2024 3:00 AM EST) Hgb 10.4(L) 13.7 - 17.5 g/dL [facility] Hematocrit 31.0(L) 40.1 - 51.0 % [facility] Hemoglobin x 3 31.2(L) 41.1 - 52.5 g/dL [facility] 11/09/2024 3:00 AM EST 11/10/2024 1:22 PM EST us Zeeshan Infante MD LAB BLOOD ORDERABLES Final Result Performing Organization Address [facility] de Phone Number [facility] [address] [place] [address] * (ABNORMAL) SPECIAL CHEMISTRY (07/19/2024) Hemoglobin A1C 6.9(H) 4.8 - 5.9 % [facility] 07/19/2024 07/20/2024 10: 11 AM EDT Narrative [facility] - 07/20/2024 Unless otherwise specified, test(s) performed at: [facility], [address] [place] [id number] [employer] COUNTER CLERK: Adam Padron M.D. For any questions, please call customer service at FREQUENCY:MONTHLY Resulting Agency Comment Specimen source: Blood Derek Weinstein MD LAB BLOOD BANK TEST ORDERABLES Final Result [facility] See order comments or contact performing lab Unknown, [place] from Last 3 Months or Most Recently Relevant to Health Maintenance [place] Care Teams Casserole Preparer Relationship Specialty Start Date End Date Delores Painter MD [address] PCP - General 10/28/20
--- OUTSIDE RECORDS SUMMARY | 2024-12-26 14:37 | XMS_ITS | Clinical Summary ---
Author Organization [facility] Address [address] [place] [address] Phone Care Team Providers Care Bulk Gas Specialist Name Role Phone Larissa Pérez MD Primary Care Provider [phone] Allergies No known active allergies Medications apixaban (ELIQUIS) 5 mg tablet Take 1 Tablet by mouth 2 times daily. Active bumetanide (BUMEX) 2 mg tablet Take 1 tablet by mouth 2 times daily. 06/27/2021 Active carvediloL (COREG) 25 mg tablet Take 25 mg by mouth 2 times daily (with meals). Active fluticasone propionate (FLONASE) 50 mcg/actuation nasal spray 1 [place] by Each Nare route 2 times daily. Active losartan (COZAAR) 50 mg tablet Take 1 tablet by mouth at bedtime. 06/27/2021 Active sucroferric oxyhydroxide (VELPHORO) 500 mg chewable tablet Take 500 mg by mouth 3 times daily (with meals). Active Active Problems Problem Noted Date Diagnosed Date Atrial flutter 12/01/2022 Overview (11/15/2024): Last Assessment & Plan: He has paroxysmal atrial flutter and is undergone several cardioversions with eventual ablation in 2009. He is in atrial flutter today and asymptomatic with this. We will update an echocardiogram however continue rate control strategy given lack of symptoms. Continue anticoagulation with Eliquis for CVA prophylaxis. Hyperlipidemia 12/01/2022 Overview (11/15/2024): Last Assessment & Plan: Last lipid panel from June 2021. Total cholesterol 179, HDL 50, LDL 109. Continue statin therapy. Hypertension 06/26/2021 Overview (11/15/2024): Last Assessment & Plan: 100/60 in office today, well-controlled. Continue losartan, Bumex, and carvedilol. Prediabetes 06/26/2021 Encounters Date Type Department Care Team Description 11/27/2024 8:00 AM EST Ancillary Procedure [facility] [address] [place] [address] Encounter for adjustment or management of cardiac device from Last 3 Months Surgical History Surgery Date Site/Laterality Comments COLONOSCOPY 07/09/2017 PROCEDURE: HISTORICAL COLONOSCOPY OTHER SURGICAL HISTORY 2015 PROCEDURE: HISTORY OTHER; COMMENT: Creation of graft fistula for dialysis OTHER SURGICAL HISTORY PROCEDURE: IA ABLATE L/R ATRIAL FIBRIL W/ISOLATED PULM VEIN Medical History Medical History Date Comments Cataract 06/26/2021 DX:Cataract Cutaneous neurofibroma DX:Cutane ous neurofibroma; COMMENT: isolated ESRD (end stage renal diseas e) ([facility]) DX:ESRD (end stage renal dis ease) ([facility]); COMMENT: follows with Dr. Hernandez Gout DX:Gout Poor dentition DX:Poor dentitio n Prediabetes DX:Prediabetes Type 2 diabetes mellitus ([facility]) DX:Type 2 diabetes mellitus ([facility]) Family History Medical History Relation Name Comments [...] at Not on file Legal Sex Male 11:55 AM EST Gender Identity Not on file Sexual Orientation Not on file Obstetrics History Last Filed [...] Care Team (Late st Contact Info) Description 02/26/2025 8:00 AM EDT Ancillary Procedure [facility] - [address] [facility] [address] [place] [address] Health Maintenance Due Date Last Done Comments Diabetes: Annual Foot Exam 1969 Diabetes: Annual Retina Eye Exam 1969 Zoster Vaccines (1 of 2) 1978 RSV Immunization Patients 60+ Years Old (1 - Risk 60-74 years 1-dose series) 2019 Colorectal Cancer Screening: Colonoscopy 09/15/2022 Depression Screening 09/15/2022 Hepatitis C Screening 09/15/2022 Medicare Annual Wellness Visit 09/15/2022 Social Influencers of Health Screening 09/15/2022 Falls Risk Assessment 02/29/2024 COVID-19 Vaccine ( season) 2024 08/04/2022, 04/03/2022, 08/23/2021, Additional history exists Diabetes: Blood Sugar Control Test (HGBA1C) 11/27/2024 Hypertension/CHF/CAD Annual BMP Blood Test 10/10/2025 10/10/2024 Cholesterol Screening (Lipid Panel) 07/04/2026 07/04/2021 DTaP,Tdap,and Td Vaccines (2 - Td or Tdap) 02/19/2028 02/18/2018 Pneumococcal Vaccine: 50+ Years (4 of 4 - PCV20 or PCV21) 11/17/2028 11/17/2023, 11/15/2018, 09/15/2018 Pneumococcal Vaccine: Pediatrics (0 to 5 Years) and At-Risk Patients (6 to 64 Years) (4 of 4 - PCV20 or PCV21) 11/17/2028 11/17/2023, 11/15/2018, 09/15/2018 Hepatitis B Vaccines Completed 04/25/2022, 02/19/2022, 01/22/2022, Additional history exists Influenza Vaccine Completed 08/10/2024, , 08/02/2021, Additional history exists HIB Vaccines Aged Out No longer eligi [...] patient's age to complete this topic Meningococcal B Vacine Aged Out No lo nger eligible based on patient's age to complete this topic RSV Immunization Patients Under 20 months Aged Out No longer eligible based on patient's age to complete this topic Varicella Vaccines Aged Out No longer eligible based on patient's age to complete this topic Medical Devices Implanted Type Area Hog Slaughterer Device Identifier Shelf Expiration Date Model / Serial / Lot Abbt-Stju Aveir Vr Lp [id number] Cardiac Pacemaker [employer] A[employer]IR VR LP [id number] / [id number] / Procedures Procedure Name Priority Date/Time Associated Diagnosis Comments CARDIAC DEVICE CHECK- IN CLINIC- MURJ Routine 11/27/2024 8:28 AM EST Encounter for adjustment or management of cardiac device LIPID PANEL Routine 07/04/2021 from Last 3 Months or Most Recently Relevant to Health Maintenance Results * CARDIAC DEVICE CHECK- IN CLINIC- MURJ (11/27/2024 8:28 AM EST) Date Time Interrogation Session [id number] CV DEVICE CHECK Implantable Pulse Generator Hog Slaughterer [employer] CV DEVICE CHECK Implantable Pulse Generator Type IPG CV DEVICE CHECK Implantable Pulse Generator Model Aveir VR LP [id number] CV DEVICE CHECK Implantable Pulse Generator Serial Number [id number] CV DEVICE CHECK Patrice Statistic RV Percent Paced 1.00 CV DEVICE CHECK Lead Channel Sensing Intrinsic Amplitude 5.700 CV DEVICE CHECK Lead Channel Impedance Value 390 CV DEVICE CHECK Lead Channel Pacing Threshold Amplitude 0.500 CV DEVICE CHECK Lead Channel Pacing Threshold Pulse Width 0.4 CV DEVICE CHECK Patrice Setting Mode (NBG Code) VVIR CV DEVICE CHECK Patrice Setting Lower Rate Limit 50 CV DEVICE CHECK Patrice Setting Maximum Sensor Rate 130 CV DEVICE CHECK Date of Service 2025-03-16 CV DEVICE CHECK Anatomical Region Laterality Modality Device Interroga tion 11/27/2024 Impressions 12/06/2024 1:44 PM EST Normal In-Office: No Events * Normal Device Function * Alerts or events: None * Battery: DOUGLAS, ??19.7 years * Sensing, impedance and thresholds reviewed and tested * Presenting Rhythm: VS 70s * Heart Rate Histograms reviewed * Pacing and Detection Parameters were evaluated Narrative Procedure Note Marquise Torrez MD - 12/06/2024 IMPRESSION: Normal In-Office: No Events * Normal Device Function * Alerts or events: None * Battery: DOUGLAS, 19.7 years * Sensing, impedance and thresholds reviewed and tested * Presenting Rhythm: VS 70s * Heart Rate Histograms reviewed * Pacing and Detection Parameters were evaluated us Order Referral Cardiovascular CV IMPLANTABLE CAR DIAC DEVICE PROCEDURES Final Result * (ABNORMAL) Lipid panel (07/04/2021) LDL/HDL Ratio 4 0 - 4 Triglycerides 104 0 - 150 mg/dL Cholesterol 179 0 - 200 mg/dL HDL 50 >=40 mg/dL LDL Cholesterol 109(A) 0 - 100 mg/dL Blood Venous blood specimen / Unknown Historical Provider LAB BLOOD ORDERABLES Whit l Result from Last 3 Months or Most Recently Relevant to Health Maintenance Insurance MED[place] - [place] MEDICARE Care Teams Bulk Gas Specialist Relationship Specialty Start Date End Date Larsisa Pérez MD [address] [place] [address] PCP - General 10/19/23
--- OUTSIDE RECORDS SUMMARY | 2024-12-26 14:37 | XMS_ITS | Encounter Summary ---
Author Organization [facility] Address [address] [place] [address] Care Team Providers Care Preschool Teacher Aide Name Role Phone Larissa Pérez MD Primary Care Provider [phone] Encounter Details Date Type Department Care Team (Latest Contact Info) Description 11/27/2024 8:00 AM EST Ancillary Procedure [facility] [address] [facility] [address] [place] [id number] Encounter for adjustment or management of cardiac device Social History Tobacco Use Types Packs/Day Years [...] on file documented as of this encounter Plan of Treatment Upcoming Encounters Date Type Department Care Team (Late st Contact Info) Description 02/26/2025 8:00 AM EDT Ancillary Procedure [facility] [address] [facility] [address] [place] [id number] documented as of this encounter Procedures Procedure Name Priority Date/Time Associated Diagnosis Comments CARDIAC DEVICE CHECK- IN CLINIC- MURJ Routine 11/27/2024 8:28 AM EST Encounter for adjustment or management of cardiac device documented in this encounter Results * CARDIAC DEVICE CHECK- IN CLINIC- MURJ (11/27/2024 8:28 AM EST) Date Time Interrogation Session [id number] CV DEVICE CHECK Implantable Pulse Generator Service Dispatcher [employer] CV DEVICE CHECK Implantable Pulse Generator Type IPG CV DEVICE CHECK Implantable Pulse Generator Model Aveir VR LP [id number] CV DEVICE CHECK Implantable Pulse Generator Serial Number [id number] CV DEVICE CHECK Patrice Statistic RV Percent [...] IMPLANTABLE CAR DIAC DEVICE PROCEDURES Final Result documented in this encounter Visit Diagnoses Diagnosis Encounter for adjustment or management of cardiac device Encounter for adjustment or management of cardiac device documented in this encounter Care Teams Preschool Teacher Aide Relationship Specialty Start Date End Date Larissa Pérez MD [address] [place] [address] PCP - General 10/19/23 documented as of this encounter
--- OUTSIDE RECORDS SUMMARY | 2024-12-26 14:37 | XMS_ITS | Encounter Summary ---
Author Organization [facility] Address [address] [address] Phone Care Team Providers Care Infantryman Name Role Phone Delores Painter MD Primary Care Provider [phone] Encounter Details Date Type Department Care Team (Late st Contact Info) Description 12/12/2024 Treatment [facility]. [address] [address] Cherrie Infante MD [address] [address] Social History Tobacco Use Types [...] Dialysis Note - Cherrie Infante MD - 12/12/2024 12:00 AM EST Patient: Alton Thornton : 1960 Note Type: Dialysis Rounds-Basic Service Date: 12/12/2024 This patient was personally seen for a basic visit as part of routine monthly dialysis care for end stage renal disease. Attending Cellular Biologist: CHERRIE INFANTE MD Dialysis Location: [facility] Schedule: Shift: 1 OVERVIEW Patient [...] (01/19/24) Signed by: CHERRIE INFANTE MD on 12/12/2024 at 08:43:36 AM documented in this encounter Plan of Treatment Upcoming Encounters Date Type Department Care Team (Late st Contact Info) Description 01/08/2025 7:30 AM EDT Scheduled Only [facility] Center [address] [place] [address] documented as of this encounter Visit Diagnoses Not on filedocumented in this encounter Care Teams Infantryman Relationship Specialty Start Date End Date Delores Painter MD [address] PCP - General 10/28/20 documented as of this encounter
--- OUTSIDE RECORDS SUMMARY | 2024-12-26 14:37 | XMS_ITS | Encounter Summary ---
Author Organization [facility] Address [address] [address] Phone Care Team Providers Care Hospital Medical Assistant Name Role Phone Delores Painter MD Primary Care Provider [phone] Encounter Details Date Type Department Care Team (Late st Contact Info) Description 12/19/2024 Treatment [facility] [address] [address] Cherrie Infante MD [address] [address] End stage renal disease; Dependence [...] Dialysis Note - Cherrie Infante MD - 12/19/2024 12:00 AM EST Patient: Alton Thornton : 1960 Note Type: Dialysis Rounds-Comp Service Date: 12/19/2024 This patient was personally seen for a complete visit as part of routine monthly dialysis care for end stage renal disease. Attending Adult Crossing Guard: CHERRIE INFANTE MD Dialysis Location: [facility] Schedule: Shift: 1 OVERVIEW Patient is stable. HOME MEDICATIONS Medications reviewed. Current [facility] Medications acetaminophen (TYLENOL) tablet Take 325 [...] Tonia Fowler Allergies Allergen: No Known Allergies BP AND FLUID ASSESSMENT Acceptable blood pressure. Fluid status acceptable. ADEQUACY ASSESSMENT Target met. Prescription compliance acceptable. [...] examined. ANEMIA ASSESSMENT Anemia targets met. Hemoglobin not at target. Hgb 8.4 (12/07/24) 10.4 (11/09/24) Hemoglobin 13.2 (08/02/24) 13.0 (07/26/24) 13.4 (07/19/24) Iron Saturation (TSat) 26 (07/19/24) 22 (06/21/24) 32 (05/24/24) Ferritin 671 (07/19/24) 861 (06/21/24) 888 (05/24/24) Iron 57 (07/19/24) 49 (06/21/24) 70 (05/24/24) TIBC 222 (07/19/24) 218 (06/21/24) 218 (05/24/24) Reticulocyte Hemoglobin 35.2 (07/19/24) 32.5 (04/21/24) 32.9 (01/19/24) MCV 102 (07/19/24) 100 (04/21/24) 97 (01/19/24) BMM ASSESSMENT PTH within target. Phosphorus controlled. Calcium controlled. Bone and mineral metabolism parameters [...] (01/19/24) Signed by: CHERRIE INFANTE MD on 12/19/2024 at 10:43:56 PM documented in this encounter Plan of Treatment Upcoming Encounters Date Type Department Care Team (Late st Contact Info) Description 01/08/2025 7:30 AM EDT Scheduled Only [facility] Center [address] [place] [address] [place] [address] documented as of this encounter Visit Diagnoses Diagnosis End stage renal disease Dependence on renal dialysis documented in this encounter Care Teams Hospital Medical Assistant Relationship Specialty Start Date End Date Delores Painter MD [address] PCP - General 10/28/20 documented as of this encounter
--- OUTSIDE RECORDS SUMMARY | 2024-12-26 14:37 | XMS_ITS | Encounter Summary ---
Author Organization [facility] Address [address] [address] Phone Care Team Providers Care Manager Of Sustainability Name Role Phone Delores Painter MD Primary Care Provider [phone] Encounter Details Date Type Department Care Team (Late st Contact Info) Description 12/02/2024 Treatment [facility]. [address] [address] Cherrie Infante MD [address] [address] Social History Tobacco Use Types [...] Dialysis Note - Cherrie Infante MD - 12/02/2024 12:00 AM EST Patient: Alton Thornton : 1960 Note Type: Dialysis Rounds-Basic Service Date: 12/02/2024 This patient was personally seen for a basic visit as part of routine monthly dialysis care for end stage renal disease. Attending Fitness Leader: CHERRIE INFANTE MD Dialysis Location: [facility] Schedule: Shift: 1 OVERVIEW Patient [...] (01/19/24) Signed by: CHERRIE INFANTE MD on 12/02/2024 at 08:42:45 AM documented in this encounter Plan of Treatment Upcoming Encounters Date Type Department Care Team (Late st Contact Info) Description 01/08/2025 7:30 AM EDT Scheduled Only [facility] Center [address] [place] [address] [place] [address] documented as of this encounter Visit Diagnoses Not on filedocumented in this encounter Care Teams Manager Of Sustainability Relationship Specialty Start Date End Date Delores Painter MD [address] PCP - General 10/28/20 documented as of this encounter
== END 2024-12-26 11:50 | disposition home or self-care (01) ==
LOC: HO.MMNH2L 11:49
PROVIDERS: Visit Provider Student in an Organized Health Care Education/Training Program
DX: Z13.89 Encounter for screening for other disorder (principal)

== ENCOUNTER 2025-01-08 05:43 | Outpatient (REF) | payer MEDICARE, SELFPAY | END 2025-01-08 05:44 | disposition home or self-care (01) | LOC: HO.MMNH2L 05:43 | PROVIDERS: Visit Provider Student in an Organized Health Care Education/Training Program | DX: Z13.89 Encounter for screening for other disorder (principal) ==

== ENCOUNTER 2025-01-25 07:35 | Outpatient (REF) | payer SELFPAY ==
--- OUTSIDE RECORDS SUMMARY | 2025-01-25 07:42 | XMS_ITS | Clinical Summary ---
Author Organization [facility] Address [address] [place] [address] Phone Care Team Providers Care Medical Imaging Director Name Role Phone Larissa Pérez MD Primary Care Provider [phone] Allergies No known active allergies Medications apixaban (ELIQUIS) 5 mg tablet Take 1 Tablet by mouth 2 times daily. Active bumetanide (BUMEX) 2 mg tablet Take 1 tablet by mouth 2 times daily. 06/27/2021 Active carvediloL (COREG) 25 mg tablet Take 25 mg by mouth 2 times daily (with meals). Active fluticasone propionate (FLONASE) 50 mcg/actuation nasal spray 1 Kenefic by Each Nare route 2 times daily. Active losartan (COZAAR) 50 mg tablet Take 1 tablet by mouth at bedtime. 06/27/2021 Active sucroferric oxyhydroxide (VELPHORO) 500 mg chewable tablet Take 500 mg by mouth 3 times daily (with meals). Active Active Problems Problem Noted Date Diagnosed Date Atrial flutter (CMS/HCC V24, CMS/HCC V28) 2022 Overview (11/15/2024): Last Assessment & Plan: He [...] Description 11/27/2024 8:00 AM EST Ancillary Procedure [facility] [address] [place] [address] Encounter for adjustment or management of cardiac device from Last 3 Months Surgical History Surgery Date Site/Laterality Comments COLONOSCOPY 07/09/2017 PROCEDURE: HISTORICAL COLONOSCOPY OTHER SURGICAL HISTORY 2015 PROCEDURE: HISTORY OTHER; COMMENT: Creation of graft fistula for dialysis OTHER SURGICAL HISTORY PROCEDURE: CA ABLATE L/R ATRIAL FIBRIL W/ISOLATED PULM VEIN Medical History Medical History Date Comments Cataract 06/26/2021 DX:Cataract Cutaneous neurofibroma DX:Cutane ous neurofibroma; COMMENT: isolated ESRD (end stage renal diseas e) ([facility] V24, [facility] V28) DX:ESRD (end stage renal dis ease) ([facility]); COMMENT: follows with Dr. Hernandez Gout DX:Gout Poor dentition DX:Poor dentitio n Prediabetes DX:Prediabetes Type 2 diabetes mellitus ( S/HCC V24, CMS/[facility] V28) DX:Type 2 diabetes mellitus ([facility]) Family History Medical History Relation Name Comments [...] Description 02/26/2025 8:00 AM EDT Ancillary Procedure [facility] [address] [facility] [address] [place] [address] Health Maintenance Due Date Last Done Comments Diabetes: Annual Foot Exam 1969 Diabetes: Annual Retina Eye Exam 1969 Zoster Vaccines (1 of 2) 1978 RSV Immunization Adult Patients (1 - Risk 60-74 years 1-dose series) [...] age to complete this topic Meningococcal B Vaccine Aged Out No l onger eligible based on patient's age to complete this topic RSV Immunization Patients Under 20 months Aged Out No longer eligible based on patient's age to complete this topic Varicella Vaccines Aged Out No longer eligible based on patient's age to complete this topic Medical Devices Implanted Type Area Plug Sorter Device Identifier Shelf Expiration Date Model / Serial / Lot Abbt-Stju Aveir Vr Lp [id number] Cardiac Pacemaker [employer] VR [employer] [id number] / [id number] / Procedures Procedure Name Priority Date/Time Associated Diagnosis Comments CARDIAC DEVICE CHECK- IN CLINIC- MURJ Routine 11/27/2024 8:28 AM EST Encounter for adjustment or management of cardiac device LIPID PANEL Routine 07/04/2021 from Last 3 Months or Most Recently Relevant to Health Maintenance Results * CARDIAC DEVICE CHECK- IN CLINIC- MURJ (11/27/2024 8:28 AM EST) Date Time Interrogation Session [id number] CV DEVICE CHECK Implantable Pulse Generator Plug Sorter [employer] CV DEVICE CHECK Implantable Pulse Generator Type IPG CV DEVICE CHECK Implantable Pulse Generator Model Aveir VR LP [id number] CV DEVICE CHECK Implantable Pulse Generator Serial Number [id number] CV DEVICE CHECK Patrice Statistic RV Percent [...] mg/dL Blood Venous blood specimen / Unknown [facility] Provider LAB BLOOD ORDERABLES Whit l Result from Last 3 Months or Most Recently Relevant to Health Maintenance Insurance MEDICAID - [place] MEDICARE Care Teams Medical Imaging Director Relationship Specialty Start Date End Date Larissa Pérez MD [address] [place] [address] PCP - General 10/19/23
--- OUTSIDE RECORDS SUMMARY | 2025-01-25 07:42 | XMS_ITS | Encounter Summary ---
Author Organization [facility] Address [address] [address] Phone Care Team Providers Care Technician Support Engineer Name Role Phone Delores Painter MD Primary Care Provider [phone] Encounter Details Date Type Department Care Team (Late st Contact Info) Description 01/23/2025 Treatment [facility]. [address] [address] Cherrie Infante MD [address] [address] End stage renal disease; Dependence [...] Dialysis Note - Cherrie Infante MD - 01/23/2025 12:00 AM EDT BASIC NOTE Patient: Alton Thornton : 1960 Note Author: CHERRIE INFANTE MD Service Date: 01/23/2025 This patient was personally seen for a basic visit as part of routine monthly dialysis care for end stage renal disease. Attending Hatch Boss: CHERRIE INFANTE MD Dialysis Location: [facility] Schedule: Shift: 1 OVERVIEW Patient is stable. HOME MEDICATIONS Current [facility] Medications acetaminophen (TYLENOL) tablet Take 325 [...] tablet with snacks Start Date: 04/02/2020 Current [facility] Allergies Allergen: No Known Allergies ADEQUACY ASSESSMENT spKt/V (Daugirdas II) 1.51 (07/24/24) 1.32 (07/19/24) 1.50 (07/14/24) Kt/V, Natural Log 1.57 (01/18/25) 1.70 (12/21/24) eKdrt/V 1.30 (07/24/24) 1.16 (07/19/24) 1.33 (07/14/24) UREA REDUCTION RATIO (%) 75 (01/18/25) 77 (12/21/24) % Urea Reduction 74 (07/24/24) 67 (07/19/24) 73 (07/14/24) BUN 51 (01/18/25) 56 (12/21/24) 110 (07/24/24) BUN Post Dialysis 13 (01/18/25) 13 (12/21/24) 29 (07/24/24) Creatinine 6.46 (01/18/25) 5.64 (12/21/24) 7.99 (07/19/24) Bicarbonate (CO2) 29 (01/18/25) 27 (12/21/24) 24 (07/19/24) Sodium 137 (01/18/25) 135 (12/21/24) 136 (07/19/24) ANEMIA ASSESSMENT Hgb 9.6 (01/18/25) 10.6 (01/11/25) 9.6 (01/09/25) Hemoglobin 13.2 (08/02/24) 13.0 (07/26/24) 13.4 (07/19/24) Iron Saturation (TSat) 21 (01/18/25) 39 (12/21/24) 26 (07/19/24) Ferritin 1,393 (01/18/25) 1,501 (12/21/24) 671 (07/19/24) Iron 39 (01/18/25) 87 (12/21/24) 57 (07/19/24) TIBC 185 (01/18/25) 224 (12/21/24) 222 (07/19/24) Reticulocyte Hemoglobin 35.2 (07/19/24) 32.5 (04/21/24) MCV 107.5 (01/18/25) 105.0 (12/21/24) 102 (07/19/24) Platelets 150 (01/18/25) 152 (12/21/24) BMM ASSESSMENT Calcium, Adjusted Total 10.3 01/18/25 9.6 12/21/24 Calcium 10.1 01/18/25 9.5 12/21/24 9.2 07/19/24 Corrected Calcium 9.4 07/19/24 9.8 06/21/24 9.7 05/24/24 Phosphorus, Serum 3.4 01/18/25 5.0 12/21/24 3.2 11/14/24 Phosphorus 6.8 07/19/24 8.4 06/21/24 7.5 05/24/24 Ca*PO4 34.3 01/18/25 47.5 12/21/24 Calcium Phosphorus Product 63 07/19/24 81 06/21/24 71 05/24/24 PTH, Intact 47 01/18/25 PTH 375 06/21/24 377 05/24/24 512 04/21/24 Vitamin D, 25-OH, Total 23.8 07/19/24 Magnesium 2.6 01/18/25 2.3 12/21/24 2.1 07/19/24 Alkaline Phosphatase 77 01/18/25 88 12/21/24 110 07/19/24 Aluminum <5 07/19/24 NUTRITION ASSESSMENT Albumin 3.7 01/18/25 3.9 12/21/24 3.7 07/19/24 Potassium 6.9 01/18/25 5.4 12/21/24 5.4 07/19/24 eNPCR 1.31 07/24/24 0.99 07/19/24 0.80 07/14/24 Hemoglobin A1C 4.6 01/18/25 6.9 07/19/24 6.8 04/21/24 ADDITIONAL LABS White Blood Cells 7.1 (01/18/25) 7.1 (12/21/24) WBC 6.48 (07/19/24) 6.13 (04/21/24) Cholesterol 137 (01/18/25) HDL 52 (01/18/25) LDL-Calc 67 (01/18/25) Triglycerides 90 (01/18/25) Hepatitis B Surface Ab >1,000 (07/19/24) Signed by: CHERRIE INFANTE MD on 01/23/2025 at 09:18:57 AM documented in this encounter Plan of Treatment Upcoming Encounters Date Type Department Care Team (Late st Contact Info) Description 04/06/2025 12:30 PM EDT Scheduled Only [facility] V[facility] Access Center [address] [place] [address] [place] [address] documented as of this encounter Visit Diagnoses Diagnosis End stage renal disease Dependence on renal dialysis documented in this encounter Care Teams Technician Support Engineer Relationship Specialty Start Date End Date Delores Painter MD [address] PCP - General 10/28/20 documented as of this encounter
--- OUTSIDE RECORDS SUMMARY | 2025-01-25 07:42 | XMS_ITS | Clinical Summary ---
Author Organization [facility] Address [address] [place] [phone] Phone Care Team Providers Care Metal Spraying Machine Operator Name Role Phone Delores Painter MD Primary Care Provider [phone] Allergies No known active allergies Medications Velphoro [...] Encounters Date Type Department Care Team Description 01/23/2025 Treatment [facility] [address] [phone] Zeeshan Infante MD End stage renal disease; Dependence on renal dialysis 01/16/2025 [facility] [address] [phone] Zeeshan Infante MD End stage renal disease; Dependence on renal dialysis 01/11/2025 Treatment [facility] [address] [phone] Zeeshan Infante MD End stage renal disease; Dependence on renal dialysis 12/26/2024 [facility] [address] [phone] Zeeshan Infante MD End stage renal disease; Dependence on renal dialysis 12/19/2024 Treatment [facility] [address] [phone] Zeeshan Infante MD End stage renal disease; Dependence on renal dialysis 12/14/2024 Treatment [facility] [address] [phone] Zeeshan Infante MD 12/12/2024 Treatment [facility] [address] [phone] Zeeshan Infante MD 12/02/2024 Treatment [facility] [address] [phone] Zeeshan Infante MD 11/21/2024 Treatment [facility] [address] [phone] Zeeshan Infante MD 11/16/2024 Treatment [facility] [address] [phone] Zeeshan Infante MD 11/14/2024 Treatment [facility] [address] [phone] Zeeshan Infante MD 11/10/2024 Telephone [facility] [address] [place] [address] [place] [address] Katheryn Purvis 11/09/2024 Telephone [facility] [address] [place] [address] [place] [phone] Jennifer Suarez 11/09/2024 Treatment [facility] [address] [phone] Zeeshan Infante MD from Last 3 Months Immunizations Immunization Administration Dates Next Due Hepatitis B 09/23/2016,08/26/2016 [...] Only [facility] [address] [place] [address] [place] [phone] Health Maintenance Due Date Last Done Comments Hepatitis B Vaccine (1 of 5 - Risk Dialysis 4-dose series) 1980 09/23/2016, 08/26/2016 Colorectal Cancer Screening: Annual FOBT 02/29/2008 Colorectal Cancer Screening: Colonoscopy 02/29/2008 Colorectal Cancer Screening: Sigmoidoscopy 02/29/2008 Diabetes: Ophthalmology Exam 11/18/2020 Diabetes: Pedal Pulse Checked 11/18/2020 Diabetes: Sensory Foot Exam 11/18/2020 Diabetes: Visual Foot Exam 11/18/2020 Diabetes: Hemoglobin A1C 04/19/2025 04/ 025, 07/19/2024, 04/21/2024, Additional history exists Influenza Vaccine (Season Ended) 2025 08/02/2023, 08/12/2022, 08/02/2021, Additional history exists Pneumococcal Vaccine: 50+ Ye ars (4 of 4 - PPSV23 or PCV20) 11/17/2028 11/17/2023, 11/15/2018, 09/15/2018 Pneumococcal Vaccine: Peds ( 0 to 5 Years) and At-Risk Patients (6 to 49 Years) (4 of 4 - PPSV23 or PCV20) 11/17/2028 11/17/2023, 11/15/2018, 09/15/2018 Procedures Procedure Name Priority Date/Time Associated Diagnosis Comments HEMOGLOBIN A1C Routine 01/18/2025 3:00 AM EDT HEPATITIS B SURFACE ANTIGEN W/REFL CONFIRM Routine 01/18/2025 3:00 AM EDT TRANSFERRIN SATURATION Routine 3:00 AM EDT PROTEIN, TOTAL, SERUM Routine 01/18/2025 3:00 AM EDT ELECTROLYTE PANEL Routine 01/18/2025 3:0 0 AM EDT MAGNESIUM Routine 01/18/2025 3:00 AM EDT LIPID PANEL Routine 01/18/2025 3:00 AM EDT LIH (HC) Routine 01/18/2025 3:00 AM EDT LACTATE DEHYDROGENASE Routine 01/18/2025 3:00 AM EDT GLUCOSE, RANDOM Routine 01/18/2025 3:00 AM EDT CREATININE, SERUM Routine 01/18/2025 3:0 0 AM EDT AST Routine 01/18/2025 3:00 AM EDT BILIRUBIN, TOTAL Routine 01/18/2025 3:00 AM EDT ALT Routine 01/18/2025 3:00 AM EDT ALKALINE PHOSPHATASE Routine 01/18/2025 3:00 AM EDT CALCIUM PHOSPHORUS PRODUCT, ADJUSTED (HC) Routine 01/18/2025 3:00 AM EDT PTH, INTACT Routine 01/18/2025 3:00 AM EDT FERRITIN Routine 01/18/2025 3:00 AM EDT CBC AND DIFFERENTIAL Routine 01/18/2025 3:00 AM EDT KT/V NATURAL LOG, URR (HC) Routine 01/18/2025 3:00 AM EDT HEMOGLOBIN Routine 01/11/2025 3:00 AM EDT HEMOGLOBIN Routine 01/09/2025 3:00 AM EDT HEMOGLOBIN Routine 01/06/2025 3:00 AM EDT COLLECTION DATE (HC) Routine 01/06/2025 3:00 AM EDT HEMOGLOBIN Routine 01/04/2025 3:00 AM EDT HEPATITIS B SURFACE ANTIGEN W/REFL CONFIRM Routine 12/21/2024 3:00 AM EST FERRITIN Routine 12/21/2024 3:00 AM EST PROTEIN, TOTAL, SERUM Routine 12/21/2024 3:00 AM EST MAGNESIUM Routine 12/21/2024 3:00 AM EST TRANSFERRIN SATURATION Routine 3:00 AM EST ELECTROLYTE PANEL Routine 12/21/2024 3:0 0 AM EST GLUCOSE, RANDOM Routine 12/21/2024 3:00 AM EST LIH () Routine 12/21/2024 3:00 AM EST CREATININE, SERUM Routine 12/21/2024 3:0 0 AM EST LACTATE DEHYDROGENASE Routine 12/21/2024 3:00 AM EST BILIRUBIN, TOTAL Routine 12/21/2024 3:00 AM EST AST Routine 12/21/2024 3:00 AM EST ALT Routine 12/21/2024 3:00 AM EST ALKALINE PHOSPHATASE Routine 12/21/2024 3:00 AM EST CALCIUM PHOSPHORUS PRODUCT, ADJUSTED () Routine 12/21/2024 3:00 AM EST KT/V NATURAL LOG, URR () Routine 12/21/2024 3:00 AM EST CBC AND DIFFERENTIAL Routine 12/21/2024 3:00 AM EST HEMOGLOBIN Routine 12/07/2024 3:00 AM EST LIH () Routine 11/14/2024 3:00 AM EST PHOSPHATE ( PHOSPHORUS) Routine 11/14/2024 3:00 AM EST HEMOGLOBIN AND HEMATOCRIT, BLOOD Routine 11/09/2024 3:00 AM EST from Last 3 Months Results * [facility] (01/18/2025 3:00 AM EDT) Only the most recent of3 resultswithin the time period is included. Lipemia Normal Normal [facility] Icterus Normal Normal [facility] Hemolysis Normal Normal [facility] 01/18/2025 3:00 AM EDT 01/20/2025 1:56 PM EDT us Zeeshan Infante MD LAB HISTORICA [id number] RESULTS Final Result Performing Organization Address [facility] Co de Phone Number APS [facility] [address] [place] [address] * (ABNORMAL) Kt/V Natural Log, URR (01/18/2025 3:00 AM EDT) Only the most recent of2 resultswithin the time period is included. Treatment Time 237 min [facility] Pre-Weight, lb 72.5 kg [facility] Post-Weight, lb 70.8 kg [facility] Ultrafiltration Rate 6 <=13 mL/kg/hr [facility] Comment: Recommend achieving Ultrafiltration Rate (UFR) <=10 mL/kg/hr References: Julio Cesar TY et al. Kidney Int. 2010; 79(2):250-257 BUN Post Dialysis 13 7 - 25 mg/dL [facility] BUN 51(H) 7 - 25 mg/dL [facility] UREA REDUCTION RATIO (%) 75 >=65 % [facility] Kt/V Natural Log 1.57 >=1.2 [facility] 01/18/2025 3:00 AM EDT 01/20/2025 1:23 PM EDT us Zeeshan Infante MD LAB HISTORICA [id number] RESULTS Final Result Performing Organization Address [facility] Co de Phone Number [facility]PS [facility] [address] [place] [address] * Calcium Phosphorus Product, Adjusted (01/18/2025 3:00 AM EDT) Only the most recent of2 resultswithin the time period is included. Albumin 3.7 3.6 - 5.4 g/dL [facility] Calcium 10.1 8.6 - 10.3 mg/dL [facility] Phosphorus, Serum 3.4 2.5 - 5.0 mg/dL [facility] Ca*PO4 34.3 <55.0 mg2/dL2 [facility] Calcium, Adjusted Total 10.3 8.6 - 10.3 mg/dL [facility] CA*PO4 CORRCTD 35.0 <55.0 mg2/dL2 [facility] 01/18/2025 3:00 AM EDT 01/20/2025 1:56 PM EDT us Zeeshan Infante MD LAB HISTORICA [id number] RESULTS Final Result Performing Organization Address [facility] Co de Phone Number [facility]PS [facility] [address] [place] [address] * Hepatitis B Surface Ag w/Reflex Confirmation (01/18/2025 3:00 AM EDT) Only the most recent of2 resultswithin the time period is included. Hep B Surface Antigen Negative Negative [facility] 01/18/2025 3:00 AM EDT 01/20/2025 1:56 PM EDT Zeeshan Infante MD LAB BLOOD ORDERABLES Final Result Performing Organization Address [facility] de Phone Number [facility] [address] [place] [address] * (ABNORMAL) TSAT (01/18/2025 3:00 AM EDT) Only the most recent of2 resultswithin the time period is included. Iron 39(L) 65 - 175 ug/dL [facility] Transferrin 132(L) 215 - 365 mg/dL [facility] TIBC 185(L) 211 - 406 ug/dL [facility] Iron Saturation (TSat) 21(L) 22 - 52 % [facility] 01/18/2025 3:00 AM EDT 01/20/2025 1:56 PM EDT Zeeshan Infante MD LAB BLOOD ORDERABLES Final Result Performing Organization Address [facility] Co de Phone Number [facility] [address] [place] [address] * (ABNORMAL) CBC and Differential (01/18/2025 3:00 AM EDT) Only the most recent of2 resultswithin the time period is included. Pathologist [facility] DIFFERENTIAL MANUAL, 2 Not Indicated [facility] White Blood Cells 7.1 4.2 - 9.1 K/uL [facility] RBC 2.81(L) 4.63 - 6.08 M/uL [facility] Hgb 9.6(L) 13.7 - 17.5 g/dL [facility] Hemoglobin x 3 28.8(L) 41.1 - 52.5 g/dL [facility] Hematocrit 30.2(L) 40.1 - 51.0 % [facility] MCV 107.5(H) 79.0 - 92.2 fL [facility] MCH 34.2(H) 25.7 - 32.2 pg [facility] MCHC 31.8(L) 32.3 - 36.5 g/dL [facility] Platelets 150(L) 163 - 337 K/uL [facility] RDW 13.2 11.6 - 14.4 % [facility] Neutrophils Relative 68.3(H) 34.0 - 67.9 % [facility] Lymphocytes Relative 16.8(L) 21.8 - 53.1 % [facility] Monocytes 8.8 5.3 - 12.2 % [facility] Eosinophils Relative 4.5 0.8 - 7.0 % [facility] Basophils Relative 1.0 0.2 - 1.2 % [facility] Immature Granulocytes 0.6 0.0 - 1.0 % [facility] 01/18/2025 3:00 AM EDT 01/20/2025 1:30 PM EDT us Zeeshan Infante MD LAB BLOOD ORDERABLES Final Result [facility] [address] [place] [address] * (ABNORMAL) ALT (01/18/2025 3:00 AM EDT) Only the most recent of2 resultswithin the time period is included. Pathologist [facility] ALT (SGPT) 8(L) 10 - 49 U/L [facility] 01/18/2025 3:00 AM EDT 01/20/2025 1:56 PM EDT us Zeeshan Paramasivam MD LAB BLOOD ORDERABLES Final Result Performing Organization Address [facility] Co de Phone Number [facility] [address] [place] [address] * AST (01/18/2025 3:00 AM EDT) Only the most recent of2 resultswithin the time period is included. AST (SGOT) 20 <34 U/L [facility] 01/18/2025 3:00 AM EDT 01/20/2025 1:56 PM EDT us Zeeshan Infante MD LAB BLOOD ORDERABLES Final Result Performing Organization Address [facility] de Phone Number [facility] [address] [place] [address] * Protein, total (01/18/2025 3:00 AM EDT) Only the most recent of2 resultswithin the time period is included. Total Protein 7.3 6.4 - 8.9 g/dL [facility] 01/18/2025 3:00 AM EDT 01/20/2025 1:56 PM EDT us Zeeshan Infante MD LAB BLOOD ORDERABLES Final Result Performing Organization Address [facility] Co de Phone Number [facility]PS [facility] [address] [place] [address] * Alkaline phosphatase (01/18/2025 3:00 AM EDT) Only the most recent of2 resultswithin the time period is included. Alkaline Phosphatase 77 46 - 116 U/L [facility] 01/18/2025 3:00 AM EDT 01/20/2025 1:56 PM EDT us Zeeshan Infante MD LAB BLOOD ORDERABLES Final Result Performing Organization Address [facility] Co de Phone Number [facility] [address] [place] [address] * (ABNORMAL) PTH, Intact (01/18/2025 3:00 AM EDT) PTH, Intact 47(L) 160 - 721 pg/mL [facility] Comment: Suggested (KDIGO) ESRD maintenance range is two to nine times the upper normal limit (80.1 pg/mL) for the laboratory. 01/18/2025 3:00 AM EDT 01/20/2025 1:56 PM EDT Zeeshan Infante MD LAB BLOOD ORDERABLES Final Result Performing Organization Address [facility] Co de Phone Number [facility] [address] [place] [address] * Magnesium (01/18/2025 3:00 AM EDT) Only the most recent of2 resultswithin the time period is included. Magnesium 2.6 1.9 - 2.7 mg/dL [facility] 01/18/2025 3:00 AM EDT 01/20/2025 1:56 PM EDT Zeeshan Infante MD LAB BLOOD ORDERABLES Final Result Performing Organization Address [facility] Co de Phone Number [facility] [address] [place] [address] * (ABNORMAL) Lactate dehydrogenase (01/18/2025 3:00 AM EDT) Only the most recent of2 resultswithin the time period is included. LDH 380(H) 120 - 246 U/L [facility] 01/18/2025 3:00 AM EDT 01/20/2025 1:56 PM EDT Zeeshan Infante MD LAB BLOOD ORDERABLES Final Result Performing Organization Address [facility] Co de Phone Number [facility] [address] [place] [address] * Hemoglobin A1c (01/18/2025 3:00 AM EDT) Hemoglobin A1C 4.6 <5.7 % [facility] Comment: Methodology: Enzymatic HbA1c (NGSP %) ?Suggested Diagnosis >6.4% ? Diabetic 5.7-6.4% ?Pre-Diabetic <5.7% ? Non-Diabetic Diabetic Glucose Control Evaluation: Therapeutic action suggested at >8.0% ADA recommends a glycemic goal of <7.0% 01/18/2025 3:00 AM EDT 01/20/2025 1:30 PM EDT us Zeeshan Infante MD LAB BLOOD ORDERABLES Final Result Performing Organization Address [facility] de Phone Number [facility] [address] [place] [address] * Glucose, random (01/18/2025 3:00 AM EDT) Only the most recent of2 resultswithin the time period is included. Glucose 100 74 - 109 mg/dL [facility] 01/18/2025 3:00 AM EDT 01/20/2025 1:56 PM EDT us Zeeshan Infante MD LAB BLOOD ORDERABLES Final Result Performing Organization Address [facility] de Phone Number [facility] [address] [place] [address] * (ABNORMAL) Ferritin (01/18/2025 3:00 AM EDT) Only the most recent of2 resultswithin the time period is included. Ferritin 1,393(H) 22 - 322 ng/mL [facility] 01/18/2025 3:00 AM EDT 01/20/2025 1:56 PM EDT us Zeeshan Infante MD LAB BLOOD ORDERABLES Final Result Performing Organization Address [facility] de Phone Number [facility] [address] [place] [address] * (ABNORMAL) Creatinine, serum (01/18/2025 3:00 AM EDT) Only the most recent of2 resultswithin the time period is included. Creatinine 6.46(H) 0.70 - 1.30 mg/dL [facility] 01/18/2025 3:00 AM EDT 01/20/2025 1:56 PM EDT Zeeshan Infante MD LAB BLOOD ORDERABLES Final Result Performing Organization Address [facility] de Phone Number [facility] [address] [place] [address] * (ABNORMAL) Bilirubin, total (01/18/2025 3:00 AM EDT) Only the most recent of2 resultswithin the time period is included. Total Bilirubin 0.2(L) 0.3 - 1.2 mg/dL [facility] 01/18/2025 3:00 AM EDT 01/20/2025 1:56 PM EDT Zeeshan Infante MD LAB BLOOD ORDERABLES Final Result Performing Organization Address [facility] de Phone Number [facility] [address] [place] [address] * (ABNORMAL) Lipid panel (01/18/2025 3:00 AM EDT) Cholesterol 137 <200 mg/dL [facility] Comment: Optimal: ?<200 Borderline: ? 200-239 Higher Risk: ?>239 Triglycerides 90 <150 mg/dL [facility] Comment: Optimal: ?<150 Borderline High: ??150-199 High: ? 200-499 Very High: ?>499 HDL 52(A) >59 mg/dL [facility] Comment: Desirable: ?>59 Higher Risk: ?<40 LDL-Calc 67 <100 mg/dL [facility] Comment: Optimal: ?<100 Above Optimal: ?100-129 Borderline High: ??130-159 High: ? 160-189 Very High: ?>189 VLDL Cholesterol Thien 18 <30 mg/dL [facility] Comment: Optimal: ?<30 Borderline High: ??30-39 High: ? 40-99 Very High: ?>99 Chol/HDL Ratio 2.6 <3.3 [facility] Comment: Optimal: ?<3.3 Higher Risk: ?>6.2 01/18/2025 3:00 AM EDT 01/20/2025 1:56 PM EDT Zeeshan Infante MD LAB BLOOD ORDERABLES Final Result Performing Organization Address [facility] de Phone Number [facility] [address] [place] [address] * (ABNORMAL) Electrolyte panel (01/18/2025 3:00 AM EDT) Only the most recent of2 resultswithin the time period is included. Sodium 137 136 - 145 mEq/L [facility] Potassium 6.9(H) 3.4 - 5.0 mEq/L [facility] Chloride 100 98 - 107 mEq/L [facility] Bicarbonate (CO2) 29 21 - 31 mEq/L [facility] Anion Gap 8 3 - 14 mEq/L [facility] 01/18/2025 3:00 AM EDT 01/20/2025 1:56 PM EDT Zeeshan Infante MD LAB BLOOD ORDERABLES Final Result Performing Organization Address [facility] de Phone Number [facility] [address] [place] [address] * (ABNORMAL) Hemoglobin (01/11/2025 3:00 AM EDT) Only the most recent of5 resultswithin the time period is included. Hgb 10.6(L) 13.7 - 17.5 g/dL [facility] Hemoglobin x 3 31.8(L) 41.1 - 52.5 g/dL [facility] 01/11/2025 3:00 AM EDT 01/12/2025 1:25 PM EDT us Zeeshan Infante MD LAB BLOOD ORDERABLES Final Result Performing Organization Address [facility] Co de Phone Number [facility]PS [facility] [address] [place] [address] * Collection Date (01/06/2025 3:00 AM EDT) Collection Date See Comment [facility] Comment: Patient sample received may exceed specimen stability, based on the collection date electronically provided. ??When reviewing patient results, verify collection information and consider specimen stability before acting on any critical or panic results. 01/06/2025 3:00 AM EDT us Zeeshan Infante MD LAB HISTORICA [id number] RESULTS Final Result Performing Organization Address [facility] Co de Phone Number [facility] [address] [place] [address] * Phosphorus (11/14/2024 3:00 AM EST) Pathologist [facility] Phosphorus, Serum 3.2 2.5 - 5.0 mg/dL [facility] 11/14/2024 3:00 AM EST 11/15/2024 1:14 PM EST us Zeeshan Infante MD LAB BLOOD ORDERABLES Final Result Performing Organization Address [facility] Co de Phone Number [facility] [address] [place] [address] * (ABNORMAL) Hemoglobin and hematocrit (11/09/2024 3:00 AM EST) Hgb 10.4(L) 13.7 - 17.5 g/dL [facility] Hematocrit 31.0(L) 40.1 - 51.0 % [facility] Hemoglobin x 3 31.2(L) 41.1 - 52.5 g/dL [facility] 11/09/2024 3:00 AM EST 11/10/2024 1:22 PM EST us Zeeshan Infante MD LAB BLOOD ORDERABLES Final Result [facility] [address] [place] [address] from Last 3 Months Insurance Medicaid [place] Medicare [place] Care Teams Metal Spraying Machine Operator Relationship Specialty Start Date End Date Delores Painter MD [address] PCP - General 10/28/20
== END 2025-01-25 07:36 | disposition home or self-care (01) ==
LOC: HO.MMNH2L 07:35
PROVIDERS: Visit Provider Family Medicine
DX: Z13.89 Encounter for screening for other disorder (principal)

== ENCOUNTER 2025-02-24 09:07 | Outpatient (REF) | payer SELFPAY ==
--- OUTSIDE RECORDS SUMMARY | 2025-02-24 09:11 | XMS_ITS | Encounter Summary ---
Author Organization [facility] Address [address] [address] Phone Care Team Providers Care Billet Driller Name Role Phone Delores Painter MD Primary Care Provider [phone] Encounter Details Date Type Department Care Team (Late st Contact Info) Description 02/22/2025 Treatment [facility] [address] [phone] Cherrie Infante MD [address] [phone] End stage renal disease; Dependence [...] Dialysis Note - Cherrie Infante MD - 02/22/2025 12:00 AM EDT Patient: Alton Thornton : 1960 Note Type: Dialysis Rounds-Comp Service Date: 02/22/2025 This patient was personally seen for a complete visit as part of routine monthly dialysis care for end stage renal disease. Attending Grout Worker: CHERRIE INFANTE MD Dialysis Location: [facility] Schedule: Shift: 1 OVERVIEW Patient [...] blood pressure. Fluid status acceptable. ADEQUACY ASSESSMENT spKt/V (Daugirdas II) 1.51 (07/24/24) [...] Sodium 137 (01/18/25) 135 (12/21/24) 136 (07/19/24) Target met. Prescription compliance acceptable. ACCESS ASSESSMENT Vascular access examined. ANEMIA ASSESSMENT Hgb 10.1 (02/01/25) 9.6 (01/18/25) 10.6 (01/11/25) Hemoglobin 13.2 (08/02/24) 13.0 (07/26/24) 13.4 (07/19/24) Iron Saturation (TSat) 21 (01/18/25) 39 (12/21/24) 26 (07/19/24) Ferritin 1,393 (01/18/25) 1,501 (12/21/24) 671 (07/19/24) Iron 39 (01/18/25) 87 (12/21/24) 57 (07/19/24) TIBC 185 (01/18/25) 224 (12/21/24) 222 (07/19/24) Reticulocyte Hemoglobin 35.2 (07/19/24) 32.5 (04/21/24) MCV 107.5 (01/18/25) 105.0 (12/21/24) 102 (07/19/24) Platelets 150 (01/18/25) 152 (12/21/24) Anemia targets met. Hemoglobin at target. BMM ASSESSMENT Calcium, Adjusted Total 9.6 02/01/25 10.3 01/18/25 9.6 12/21/24 Calcium 9.3 02/01/25 10.1 01/18/25 9.5 12/21/24 Corrected Calcium 9.4 07/19/24 9.8 06/21/24 9.7 05/24/24 Phosphorus, Serum 4.1 01/25/25 3.4 01/18/25 5.0 12/21/24 Phosphorus 6.8 07/19/24 8.4 06/21/24 7.5 05/24/24 Ca*PO4 34.3 01/18/25 47.5 12/21/24 Calcium Phosphorus Product 63 07/19/24 81 06/21/24 71 05/24/24 PTH, Intact 47 01/18/25 PTH 375 06/21/24 377 05/24/24 512 04/21/24 Vitamin D, 25-OH, Total 23.8 07/19/24 Magnesium 2.6 01/18/25 2.3 12/21/24 2.1 07/19/24 Alkaline Phosphatase 77 01/18/25 88 12/21/24 110 07/19/24 Aluminum <5 07/19/24 PTH within target. Hyperphosphatemia noted. Calcium controlled. Bone and mineral metabolism parameters reviewed. NUTRITION ASSESSMENT Albumin 3.6 02/01/25 3.7 01/18/25 3.9 12/21/24 Potassium 5.2 02/08/25 4.2 02/01/25 6.1 01/25/25 eNPCR 1.31 07/24/24 0.99 07/19/24 0.80 07/14/24 Hemoglobin A1C 4.6 01/18/25 6.9 07/19/24 6.8 04/21/24 Albumin not at goal. PHYSICAL EXAM Exam performed. Vital Signs Reviewed. CV - Blood pressure noted. No edema. EXT - No ulcers. ADDITIONAL LABS White Blood Cells 7.1 (01/18/25) 7.1 (12/21/24) WBC 6.48 (07/19/24) 6.13 (04/21/24) Cholesterol 137 (01/18/25) HDL 52 (01/18/25) LDL-Calc 67 (01/18/25) Triglycerides 90 (01/18/25) Hepatitis B Surface Ab >1,000 (07/19/24) Signed by: CHERRIE INFANTE MD on 02/22/2025 at 12:32:49 PM Transcribed by: CHERRIE INFANTE MD on 02/22/2025 at 12:32:49 PM documented in this encounter Plan of Treatment Upcoming Encounters Date Type Department Care Team (Late st Contact Info) Description 04/06/2025 12:30 PM EDT Scheduled Only [facility] [address] [place] [address] documented as of this encounter Visit Diagnoses Diagnosis End stage renal disease Dependence on renal dialysis documented in this encounter Care Teams Billet Driller Relationship Specialty Start Date End Date Delores Painter MD [address] PCP - General 10/28/20 documented as of this encounter
--- OUTSIDE RECORDS SUMMARY | 2025-02-24 09:11 | XMS_ITS | Clinical Summary ---
Author Organization [facility] Address [address] [place] [address] Phone Care Team Providers Care Etl Database Developer Name Role Phone Larissa Pérez MD Primary Care Provider [phone] Allergies No known active allergies Medications apixaban (ELIQUIS) 5 mg tablet Take 1 Tablet by mouth 2 times daily. Active bumetanide (BUMEX) 2 mg tablet Take 1 tablet by mouth 2 times daily. 06/27/2021 Active carvediloL (COREG) 25 mg tablet Take 25 mg by mouth 2 times daily (with meals). Active fluticasone propionate (FLONASE) 50 mcg/actuation nasal spray 1 [place] by Each Nare route 2 times daily. [...] Encounters Date Type Department Care Team Description 02/22/2025 Telephone [facility] Cardiology [facility] [address] [place] [address] Marquise Torrez MD REHAB: DAVID LR 02/14/2025 Telephone [facility] Cardiology [facility] [address] [place] [address] Marquise Torrez MD Returned Mail 11/27/2024 8:00 AM EST Ancillary Procedure [facility] [address] [place] [address] Encounter for adjustment or management of cardiac device from Last 3 Months Surgical History Surgery Date Site/Laterality Comments COLONOSCOPY 07/09/2017 PROCEDURE: HISTORICAL COLONOSCOPY OTHER SURGICAL HISTORY 2016 PROCEDURE: HISTORY OTHER; COMMENT: Creation of graft fistula for dialysis OTHER SURGICAL HISTORY PROCEDURE: IA ABLATE L/R ATRIAL FIBRIL W/ISOLATED PULM VEIN Medical History Medical History Date Comments Cataract 06/26/2021 DX:Cataract Cutaneous neurofibroma DX:Cutane ous neurofibroma; COMMENT: isolated ESRD (end stage renal diseas e) (CMS/HCC V24, [facility] V28) DX:ESRD (end stage renal dis ease) (HCC); COMMENT: follows with Dr. Hernandez Gout DX:Gout Poor dentition DX:Poor dentitio n Prediabetes DX:Prediabetes Type 2 diabetes mellitus ( S/HCC V24, [facility] V28) DX:Type 2 diabetes mellitus (HCC) Family History Medical History Relation Name Comments [...] Care Team (Late st Contact Info) Description 2025 12:30 PM EDT Office Visit [facility] [address] [place] [address] Courtney Sandoval PA [address] [place] [address] 2025 1:00 PM EDT Ancillary Procedure [facility] [address] [place] [address] Health Maintenance Due Date Last Done Comments [...] this topic Medical Devices Implanted Type Area Senior Python Developer Device Identifier Shelf Expiration Date Model / Serial / Lot Abbt-ju Aveir Vr Lp [id number] Cardiac Pacemaker [employer] VR LP [id number] / [id number] / Procedures Procedure Name Priority Date/Time Associated Diagnosis Comments CARDIAC DEVICE CHECK- [facility]- [facility] [place] Routine 11/27/2024 8:28 AM EST Encounter for adjustment or management of cardiac device LIPID PANEL Routine 07/04/2021 from Last 3 Months or Most Recently Relevant to Health Maintenance Results * CARDIAC DEVICE CHECK- IN [facility]- [facility] [place] [facility] (11/27/2024 8:28 AM EST) Date Time Interrogation Session [id number] CV DEVICE CHECK Implantable Pulse Generator Senior Python Developer [employer] CV DEVICE CHECK Implantable Pulse Generator Type IPG CV DEVICE CHECK Implantable Pulse Generator Model Aveir VR LP [id number] CV DEVICE CHECK Implantable Pulse Generator Serial Number [id number] CV DEVICE CHECK Patrice Statistic RV Percent [...] mg/dL Blood Venous blood specimen / Unknown us Historical Provider LAB BLOOD ORDERABLES Whit l Result from Last 3 Months or Most Recently Relevant to Health Maintenance Insurance MEDICAID - [place] MEDICARE Care Teams Etl Database Developer Relationship Specialty Start Date End Date Larissa Pérez MD [address] [place] [address] PCP - General 10/19/23
--- OUTSIDE RECORDS SUMMARY | 2025-02-24 09:11 | XMS_ITS | Encounter Summary ---
Author Organization [employer] [address] Care Team Providers Care Outreach Specialist Name Role Phone Larissa Pérez MD Primary Care Provider [phone] Reason for Visit * Reason Onset Date Comments REHAB: DAVID BE 02/22/2025 Encounter Details Date Type Department Care Team (Late st Contact Info) Description 02/22/2025 Telephone [facility] [address] [facility] [address] [place] [address] Marquise Torrez MD [address] [place] [address] REHAB: DAVID WHELAN Social History Tobacco Use Types Packs/Day Years [...] on file documented as of this encounter Progress Notes * Veronica Clark MA - 02/23/2025 9:15 AM EDT Received Rehab documents 02/23/25. Pt had Aveir PPM implanted 10/16/24, 8 - 9 second pauses on telemetry while inpatient at [facility]. No PVC consult, just implanted device. Former ENP patient, last visit with our office 12/01/22. He had his first device check in November 2024. He is scheduled for 3 month device check 02/26/25 and has a hospital follow up 02/28/25. Confirmed with device, ok to move 02/26/25 appt to 02/28 so the patient does not have to go back and forth. Jeanette will update his appointmentsto reflect both appts on 02/28. Eleonora will call the [facility] so they will be present for that appointment. Jeanette will make the change for device check and notify Hayes Whelan. * Jeanette Morel - 02/22/2025 4:39 PM EDT Dick Steel called to confirm fax number and will be sending over results. documented in this encounter Plan of Treatment Upcoming Encounters Date Type Department Care Team (Late st Contact Info) Description 2025 12:30 PM EDT Office Visit [facility] Cardiology [facility] [address] [place] [address] Courtney Sandoval PA [address] [place] [address] 2025 1:00 PM EDT Ancillary Procedure [facility] Cardiology [facility] [address] [place] [address] documented as of this encounter Visit Diagnoses Not on filedocumented in this encounter Care Teams Outreach Specialist Relationship Specialty Start Date End Date Larissa Pérez MD [address] [place] [address] PCP - General 10/19/23 documented as of this encounter
--- OUTSIDE RECORDS SUMMARY | 2025-02-24 09:12 | XMS_ITS | Clinical Summary ---
Author Organization [facility] Address [address] [place] [phone] Phone Care Team Providers Care Corn Chip Maker Name Role Phone Delores Painter MD Primary [...] Date Type Department Care Team Description 02/22/2025 Treatment [facility] [address] [phone] Zeeshan Infante MD End stage renal disease; Dependence on renal dialysis 02/08/2025 Treatment [facility] [address] [phone] Zeeshan Infante MD End stage renal disease; Dependence on renal dialysis 02/03/2025 Treatment [facility] [address] [phone] Zeeshan Infante MD End stage renal disease; Dependence on renal dialysis 01/23/2025 Treatment [facility] [address] [phone] Zeeshan Infante MD End stage renal disease; Dependence on renal dialysis 01/16/2025 Treatment [facility] [address] [phone] Zeeshan Infante MD End stage renal disease; Dependence on renal dialysis 01/11/2025 Treatment [facility] [address] [phone] Zeeshan Infante MD End stage renal disease; Dependence on renal dialysis 12/26/2024 Treatment [facility] [address] [phone] Zeeshan Infante MD End stage renal disease; Dependence on renal dialysis 12/19/2024 Treatment [facility] [address] [phone] Zeeshan Infante MD End stage renal disease; Dependence on renal dialysis 12/14/2024 Treatment [facility] [address] [phone] Zeeshan Infante MD 12/12/2024 Treatment [facility] [address] [phone] Zeeshan Infante MD 12/02/2024 Treatment [facility] [address] [phone] Zeeshan Infante MD from Last 3 Months [...] Only [facility] [address] [place] [address] [place] [address] Health Maintenance Due Date Last Done Comments Hepatitis B Vaccine (1 of 5 - Risk Dialysis 4-dose series) 1980 09/23/2016, 08/26/2016 Colorectal Cancer Screening: Annual FOBT 02/29/2008 Colorectal Cancer Screening: Colonoscopy 02/29/2008 Colorectal Cancer Screening: Sigmoidoscopy 02/29/2008 Diabetes: Ophthalmology Exam 11/18/2020 Diabetes: Pedal Pulse Checked 11/18/2020 Diabetes: Sensory Foot Exam 11/18/2020 Diabetes: Visual Foot Exam 11/18/2020 Diabetes: Hemoglobin A1C 04/19/2025 04/03/2 025, 07/19/2024, 04/21/2024, Additional history exists Pneumococcal Vaccine: 50+ Ye ars (4 of 4 - PCV20 or PCV21) 11/17/2028 11/17/2023, 11/15/2018, 09/15/2018 Pneumococcal Vaccine: Peds ( 0 to 5 Years) and At-Risk Patients (6 to 49 Years) Discontinued 11/17/2023, 11/15/2018, 09/15/2018 Influenza Vaccine Completed 08/10/2024, , 08/12/2022, Additional history exists Procedures Procedure Name Priority Date/Time Associated Diagnosis Comments [facility] () Routine 02/08/2025 3:00 AM EDT POTASSIUM Routine 02/08/2025 3:00 AM EDT [facility] (HC) Routine 02/01/2025 3:00 AM EDT POTASSIUM Routine 02/01/2025 3:00 AM EDT CALCIUM, ADJUSTED W ALBUMIN Routine 02/01/2025 3:00 AM EDT HEMOGLOBIN Routine 02/01/2025 3:00 AM EDT PHOSPHATE ( PHOSPHORUS) Routine 01/25/2025 3:00 AM EDT POTASSIUM Routine 01/25/2025 3:00 AM EDT [facility] (HC) Routine 01/25/2025 3:00 AM EDT [facility] (HC) Routine 01/23/2025 3:00 AM EDT POTASSIUM Routine 01/23/2025 3:00 AM EDT HEMOGLOBIN A1C Routine 01/18/2025 3:00 AM EDT [...] EST HEMOGLOBIN Routine 12/07/2024 3:00 AM EST from Last 3 Months Results * [facility] (02/08/2025 3:00 AM EDT) Only the most recent of6 resultswithin the time period is included. Lipemia Normal Normal [facility] Icterus Normal Normal [facility] Hemolysis Normal Normal [facility] 02/08/2025 3:00 AM EDT 02/09/2025 1:03 PM EDT us Zeeshan Infante MD LAB HISTORICA [id number] RESULTS Final Result Performing Organization Address [facility] Co de Phone Number APS [facility] [address] [place] [address] * (ABNORMAL) Potassium (02/08/2025 3:00 AM EDT) Only the most recent of4 resultswithin the time period is included. Potassium 5.2(H) 3.4 - 5.0 mEq/L [facility] 02/08/2025 3:00 AM EDT 02/09/2025 1:03 PM EDT us Zeeshan Infante MD LAB BLOOD ORDERABLES Final Result Performing Organization Address [facility] de Phone Number [facility]PS [facility] [address] [place] [address] * Calcium, Adjusted w Albumin (02/01/2025 3:00 AM EDT) Calcium 9.3 8.6 - 10.3 mg/dL [facility] Albumin 3.6 3.6 - 5.4 g/dL [facility] Calcium, Adjusted Total 9.6 8.6 - 10.3 mg/dL [facility] 02/01/2025 3:00 AM EDT 02/02/2025 1:42 PM EDT us Zeeshan Infante MD LAB BLOOD ORDERABLES Final Result Performing Organization Address [facility] de Phone Number [facility]PS [facility] [address] [place] [address] * (ABNORMAL) Hemoglobin (02/01/2025 3:00 AM EDT) Only the most recent of6 resultswithin the time period is included. Hgb 10.1(L) 13.7 - 17.5 g/dL [facility] Hemoglobin x 3 30.3(L) 41.1 - 52.5 g/dL [facility] 02/01/2025 3:00 AM EDT 02/02/2025 1:36 PM EDT Zeeshan Infante MD LAB BLOOD ORDERABLES Final Result Performing Organization Address [facility]/ZIP Co de Phone Number [facility]PS [facility] [address] [place] [address] * Phosphorus (01/25/2025 3:00 AM EDT) Phosphorus, Serum 4.1 2.5 - 5.0 mg/dL [facility] 01/25/2025 3:00 AM EDT 01/26/2025 1:56 PM EDT Zeeshan Infante MD LAB BLOOD ORDERABLES Final Result Performing Organization Address [facility] de Phone Number [facility]PS [facility] [address] [place] [address] * (ABNORMAL) Kt/V Natural Log, URR (01/18/2025 [...] AM EDT 01/20/2025 1:23 PM EDT us eZeshan Infante MD LAB HISTORICA [id number] RESULTS Final Result Performing Organization Address [facility] Co de Phone Number [facility] [address] [place] [address] * Calcium Phosphorus Product, Adjusted (01/18/2025 3:00 [...] EDT us Zeeshan Infante MD LAB HISTORICA [id number] RESULTS Final Result Performing Organization Address [facility] de Phone Number [facility] [address] [place] [address] * Hepatitis B Surface Ag w/Reflex Confirmation (01/18/2025 3:00 AM EDT) Only the most recent of2 resultswithin the time period is included. Hep B Surface Antigen Negative Negative [facility] 01/18/2025 3:00 AM EDT 01/20/2025 1:56 PM EDT us Zeeshan Infante MD LAB BLOOD ORDERABLES Final Result Performing Organization Address City/[facility] de Phone Number [facility]PS [facility] [address] [place] [address] * (ABNORMAL) TSAT (01/18/2025 3:00 AM EDT) Only the most recent of2 resultswithin the time period is included. [facility] Iron 39(L) 65 - 175 ug/dL [facility] Transferrin 132(L) 215 - 365 mg/dL [facility] TIBC 185(L) 211 - 406 ug/dL [facility] Iron Saturation (TSat) 21(L) 22 - 52 % [facility] 01/18/2025 3:00 AM EDT 01/20/2025 1:56 PM EDT us Zeeshan Infante MD LAB BLOOD ORDERABLES Final Result [facility] [address] [place] [address] * (ABNORMAL) CBC and Differential (01/18/2025 3:00 AM EDT) Only the most recent of2 resultswithin the time period is included. [facility] DIFFERENTIAL MANUAL, 2 Not Indicated [facility] White [...] 3:00 AM EDT 01/20/2025 1:30 PM EDT Zeeshan Infante MD LAB BLOOD ORDERABLES Final Result Performing Organization Address [facility] Co de Phone Number [facility] [address] [place] [address] * (ABNORMAL) ALT (01/18/2025 3:00 AM EDT) Only the most recent of2 resultswithin the time period is included. ALT (SGPT) 8(L) 10 - 49 U/L [facility] 01/18/2025 3:00 AM EDT 01/20/2025 1:56 PM EDT Zeeshan Infante MD LAB BLOOD ORDERABLES Final Result Performing Organization Address [facility] de Phone Number [facility] [address] [place] [address] * AST (01/18/2025 3:00 AM EDT) Only the most recent of2 resultswithin the time period is included. AST (SGOT) 20 <34 U/L [facility] 01/18/2025 3:00 AM EDT 01/20/2025 1:56 PM EDT Zeeshan Infante MD LAB BLOOD ORDERABLES Final Result Performing Organization Address [facility] de Phone Number [facility] [address] [place] [address] * Protein, total (01/18/2025 3:00 AM EDT) Only the most recent of2 resultswithin the time period is included. Total Protein 7.3 6.4 - 8.9 g/dL [facility] 01/18/2025 3:00 AM EDT 01/20/2025 1:56 PM EDT us Zeeshan Infante MD LAB BLOOD ORDERABLES Final Result Performing Organization Address [facility] Co de Phone Number [facility] [address] [place] [address] * Alkaline phosphatase (01/18/2025 3:00 AM EDT) Only the most recent of2 resultswithin the time period is included. Alkaline Phosphatase 77 46 - 116 U/L [facility] 01/18/2025 3:00 AM EDT 01/20/2025 1:56 PM EDT us Zeeshan Infante MD LAB BLOOD ORDERABLES Final Result Performing Organization Address [facility] de Phone Number [facility] [address] [place] [address] * (ABNORMAL) PTH, Intact (01/18/2025 3:00 AM EDT) PTH, Intact 47(L) 160 - 721 pg/mL [facility] Comment: Suggested (KDIGO) ESRD maintenance range is two to nine times the upper normal limit (80.1 pg/mL) for the laboratory. 01/18/2025 3:00 AM EDT 01/20/2025 1:56 PM EDT us Zeeshan Infante MD LAB BLOOD ORDERABLES Final Result Performing Organization Address [facility] Co de Phone Number [facility] [address] [place] [address] * Magnesium (01/18/2025 3:00 AM EDT) Only the most recent of2 resultswithin the time period is included. Magnesium 2.6 1.9 - 2.7 mg/dL [facility] 01/18/2025 3:00 AM EDT 01/20/2025 1:56 PM EDT us Zeeshan Infante MD LAB BLOOD ORDERABLES Final Result Performing Organization Address [facility] Co de Phone Number [facility] [address] [place] [address] * (ABNORMAL) Lactate dehydrogenase (01/18/2025 3:00 AM EDT) Only the most recent of2 resultswithin the time period is included. LDH 380(H) 120 - 246 U/L [facility] 01/18/2025 3:00 AM EDT 01/20/2025 1:56 PM EDT Zeeshan Infante MD LAB BLOOD ORDERABLES Final Result Performing Organization Address [facility] de Phone Number [facility] [address] [place] [address] * Hemoglobin A1c (01/18/2025 3:00 AM EDT) [...] BLOOD ORDERABLES Final Result Performing Organization Address [facility] de Phone Number [facility] [address] [place] [address] * Glucose, random (01/18/2025 3:00 AM EDT) Only the most recent of2 resultswithin the time period is included. Glucose 100 74 - 109 mg/dL [facility] 01/18/2025 3:00 AM EDT 01/20/2025 1:56 PM EDT us Zeeshan Infante MD LAB BLOOD ORDERABLES Final Result Performing Organization Address [facility] Co de Phone Number [facility] [address] [place] [address] * (ABNORMAL) Ferritin (01/18/2025 3:00 AM EDT) Only the most recent of2 resultswithin the time period is included. Ferritin 1,393(H) 22 - 322 ng/mL [facility] 01/18/2025 3:00 AM EDT 01/20/2025 1:56 PM EDT us Zeeshan Ifnante MD LAB BLOOD ORDERABLES Final Result Performing Organization Address [facility] Co de Phone Number [facility] [address] [place] [address] * (ABNORMAL) Creatinine, serum (01/18/2025 3:00 AM EDT) Only the most recent of2 resultswithin the time period is included. Creatinine 6.46(H) 0.70 - 1.30 mg/dL [facility] 01/18/2025 3:00 AM EDT 01/20/2025 1:56 PM EDT Zeeshan Infante MD LAB BLOOD ORDERABLES Final Result Performing Organization Address [facility] Co de Phone Number [facility] [address] [place] [address] * (ABNORMAL) Bilirubin, total (01/18/2025 3:00 AM EDT) Only the most recent of2 resultswithin the time period is included. Total Bilirubin 0.2(L) 0.3 - 1.2 mg/dL [facility] 01/18/2025 3:00 AM EDT 01/20/2025 1:56 PM EDT Zeeshan Infante MD LAB BLOOD ORDERABLES Final Result [facility] [address] [place] [address] * (ABNORMAL) Lipid panel (01/18/2025 3:00 AM [...] BLOOD ORDERABLES Final Result Performing Organization Address [facility] Co de Phone Number [facility] [address] [place] [address] * (ABNORMAL) Electrolyte panel (01/18/2025 3:00 AM [...] BLOOD ORDERABLES Final Result Performing Organization Address [facility] de Phone Number [facility] [address] [place] [address] * Collection Date (01/06/2025 3:00 AM EDT) Collection Date See Comment [facility] Comment: Patient sample received may exceed specimen stability, based on the collection date electronically provided. ??When reviewing patient results, verify collection information and consider specimen stability before acting on any critical or panic results. 01/06/2025 3:00 AM EDT Zeeshan Infante MD LAB HISTORICA [id number] RESULTS Final Result Performing Organization Address [facility] Co de Phone Number [facility]PS [facility] [address] [place] [address] from Last 3 Months Insurance Medicaid [place] Medicaid [place] [facility] Medicare Care Teams Corn Chip Maker Relationship Specialty Start Date End Date Delores Painter MD [address] PCP - General 10/28/20
== END 2025-02-24 09:08 | disposition home or self-care (01) ==
LOC: HO.MMNH2L 09:07
PROVIDERS: Visit Provider Student in an Organized Health Care Education/Training Program
DX: Z13.89 Encounter for screening for other disorder (principal)

== ENCOUNTER 2025-04-24 | Outpatient (REF) | payer SELFPAY ==
[2025-04-24 09:48] LABS: MANUAL DIFF FLAG NO
--- OUTSIDE RECORDS SUMMARY | 2025-04-24 10:18 | XMS_ITS | Encounter Summary ---
Author Organization [facility] Address [address] [address] Phone Care Team Providers Care Collar Trimmer Name Role Phone Delores Painter MD Primary Care Provider [phone] Encounter Details Date Type Department Care Team (Late st Contact Info) Description 04/21/2025 Treatment [facility] [address] [address] Cherrie Infante MD [address] [address] End stage renal disease; Dependence [...] Dialysis Note - Cherrie Infante MD - 04/21/2025 12:00 AM EDT Patient: Alton Thornton : 1960 Note Type: Dialysis Rounds-Comp Service Date: 04/21/2025 This patient was personally seen for a complete visit as part of routine monthly dialysis care for end stage renal disease. Attending Marketing Financial Analyst: CHERRIE INFANTE MD Dialysis Location: [facility] Schedule: Shift: 1 OVERVIEW Patient is stable. HOME MEDICATIONS [facility]ations [facility]. [facility] acetaminophen (TYLENOL) tablet Take 325 mg by mouth every 6 (six) hours if needed for mild pain Start Date: apixaban (ELIQUIS) tablet Take 1 tablet by mouth twice a day Start Date: 04/26/2021 aspirin EC tablet Take 81 mg by mouth in the morning. Start Date: atorvastatin (LIPITOR) tablet Start Date: bisacodyl (DULCOLAX) suppository 10 mg Insert 10 mg into the rectum 1 (one) time each day Start Date: bumetanide (BUMEX) tablet Take 1 tablet by mouth in the morning and 1 tablet in the evening. Start Date: 06/27/2021 calcium carbonate (TUMS extra strength) chewable tablet 750 mg Start Date: carvedilol (COREG) 25 MG tablet Take 1 tablet (25 mg total) by mouth in the morning and 1 tablet (25 mg total) in the evening. Start Date: 11/11/2021 dextrose (GLUTOSE) oral gel 40% Take by mouth Start Date: DSS 100 MG PO CAPS Take 100 mg by mouth in the morning and 100 mg in the evening. Start Date: fluticasone (FLONASE) nasal spray 1 spray in the morning. Start Date: FOSRENOL 1000 MG PO PACK MIX 2 PACKETS WITH SMALL AMOUNT OF APPLESAUCE OR SIMILAR FOOD. EAT IMMEDIATELY 3 TIMES/DAY WITH MEALS Start Date: 01/05/2023 gabapentin (NEURONTIN) capsule Take 100 mg by mouth in the morning and 100 mg in the evening and 100 mg before bedtime. Start Date: GLUCAGON 1 MG/0.2ML SC SOSY Inject under the skin Start Date: lactulose (ENULOSE) oral liquid Take by mouth in the morning. Start Date: LIDOCAINE 4 % EX PTCH Apply 1 patch topically Start Date: LOKELMA 10 G PO PACK Take by mouth Start Date: losartan (COZAAR) tablet Take 1 tablet by mouth at bed time Start Date: 06/27/2021 melatonin tablet Take by mouth Start Date: midodrine (PROAMATINE) tablet Start Date: 2025 MULTIVITAMIN ADULT PO Take 1 tablet by mouth in the morning. Start Date: ondansetron (ZOFRAN) tablet Start Date: 03/08/2025 pantoprazole (PROTONIX) EC tablet Take 40 mg by mouth 1 (one) time each day before breakfast Do not crush, chew, or split. Start Date: polyethylene glycol (GLYCOLAX) packet 17 gram Take 17 g by mouth in the morning. Start Date: predniSONE (DELTASONE) tablet TAKE 3 TABLETS BY MOUTH ONCE DAILY FOR 4 DAYS THEN STOP Start Date: 07/13/2024 senna (SENOKOT) tablet 8.6 mg Take 8.6 mg by mouth in the morning. Start Date: tiZANidine (ZANAFLEX) tablet Start Date: 03/09/2025 traMADol (ULTRAM) tablet 50 mg Take 50 mg by mouth every 8 (eight) hours if needed for moderate pain Start Date: traZODone (DESYREL) tablet Take 50 mg by mouth every night Start Date: VELPHORO 500 MG PO CHEW 3 tablets 3 (three) times a day before meals 2 tablets 3 times/ day AND once tablet with snacks Start Date: 04/02/2020 Current [facility] Allergies Allergen: No Known Allergies BP AND FLUID ASSESSMENT Acceptable blood pressure. Fluid status acceptable. ADEQUACY ASSESSMENT spKt/V (Daugirdas II) 1.51 (07/24/24) 1.32 (07/19/24) 1.50 (07/14/24) Kt/V, Natural Log 1.54 (03/22/25) 1.51 (02/22/25) 1.57 (01/18/25) eKdrt/V 1.30 (07/24/24) 1.16 (07/19/24) 1.33 (07/14/24) UREA REDUCTION RATIO (%) 73 (03/22/25) 73 (02/22/25) 75 (01/18/25) % Urea Reduction 74 (07/24/24) 67 (07/19/24) 73 (07/14/24) BUN 48 (03/22/25) 51 (02/22/25) 51 (01/18/25) BUN Post Dialysis 13 (03/22/25) 14 (02/22/25) 13 (01/18/25) Creatinine 6.38 (03/22/25) 6.46 (02/22/25) 6.46 (01/18/25) Bicarbonate (CO2) 26 (03/22/25) 26 (02/22/25) 29 (01/18/25) Sodium 137 (03/22/25) 135 (02/22/25) 137 (01/18/25) Target met. Prescription compliance acceptable. ACCESS ASSESSMENT Vascular access examined. ANEMIA ASSESSMENT Hgb 10.7 (04/05/25) 8.8 (03/22/25) 10.2 (03/10/25) Hemoglobin 13.2 (08/02/24) 13.0 (07/26/24) 13.4 (07/19/24) Iron Saturation (TSat) 21 (03/22/25) 29 (02/22/25) 21 (01/18/25) Ferritin 1,174 (03/22/25) 1,257 (02/22/25) 1,393 (01/18/25) Iron 42 (03/22/25) 57 (02/22/25) 39 (01/18/25) TIBC 203 (03/22/25) 199 (02/22/25) 185 (01/18/25) Reticulocyte Hemoglobin 35.2 (07/19/24) MCV 103.2 (03/22/25) 103.1 (02/22/25) 107.5 (01/18/25) Platelets 118 (03/22/25) 113 (02/22/25) 150 (01/18/25) Anemia targets met. Hemoglobin at target. BMM ASSESSMENT Calcium, Adjusted Total 10.2 03/22/25 9.6 02/22/25 9.6 02/01/25 Calcium 10.2 03/22/25 9.4 02/22/25 9.3 02/01/25 Corrected Calcium 9.4 07/19/24 9.8 06/21/24 9.7 05/24/24 Phosphorus, Serum 4.2 03/22/25 4.8 02/22/25 4.1 01/25/25 Phosphorus 6.8 07/19/24 8.4 06/21/24 7.5 05/24/24 Ca*PO4 42.8 03/22/25 45.1 02/22/25 34.3 01/18/25 Calcium Phosphorus Product 63 07/19/24 81 06/21/24 71 05/24/24 PTH, Intact 47 01/18/25 PTH 375 06/21/24 377 05/24/24 Vitamin D, 25-OH, Total 23.8 07/19/24 Magnesium 2.5 03/22/25 2.3 02/22/25 2.6 01/18/25 Alkaline Phosphatase 74 03/22/25 65 02/22/25 77 01/18/25 Aluminum <5 07/19/24 PTH within target. Hyperphosphatemia noted. Calcium controlled. Bone and mineral metabolism parameters reviewed. NUTRITION ASSESSMENT Albumin 4.0 03/22/25 3.8 02/22/25 3.6 02/01/25 Potassium 5.5 04/05/25 5.9 03/29/25 4.6 03/24/25 eNPCR 1.31 07/24/24 0.99 07/19/24 0.80 07/14/24 Hemoglobin A1C 4.6 01/18/25 6.9 07/19/24 Albumin at goal. PHYSICAL EXAM Exam performed. Vital Signs Reviewed. CV - Blood pressure noted. No edema. EXT - No ulcers. ADDITIONAL LABS White Blood Cells 6.5 (03/22/25) 6.3 (02/22/25) 7.1 (01/18/25) WBC 6.48 (07/19/24) Cholesterol 137 (01/18/25) HDL 52 (01/18/25) LDL-Calc 67 (01/18/25) Triglycerides 90 (01/18/25) Hepatitis B Surface Ab >1,000 (07/19/24) Signed by: CHERRIE INFANTE MD on 04/21/2025 at 07:06:55 PM Transcribed by: CHERRIE INFANTE MD on 04/21/2025 at 07:06:55 PM documented in this encounter Plan of Treatment Upcoming Encounters Date Type Department Care Team (Late st Contact Info) Description 06/01/2025 12:30 PM EDT Scheduled Only [facility] [address] [place] [id number] documented as of this encounter Visit Diagnoses Diagnosis End stage renal disease Dependence on renal dialysis documented in this encounter Care Teams Collar Trimmer Relationship Specialty Start Date End Date Delores Painter MD [address] PCP - General 10/28/20 documented as of this encounter
--- OUTSIDE RECORDS SUMMARY | 2025-04-24 10:18 | XMS_ITS | Clinical Summary ---
Author Organization [facility] Address [address] [place] [address] Phone Care Team Providers Care Pump Attendant Name Role Phone Larissa Pérez MD Primary Care Provider [phone] Allergies No known active allergies Medications apixaban (ELIQUIS) 5 mg tablet Take 1 Tablet by mouth 2 times daily. Active bumetanide (BUMEX) 2 mg tablet Take 1 tablet by mouth 2 times daily. 1 Active carvediloL (COREG) 25 mg tablet Take 25 mg by mouth 2 times daily (with meals). Active fluticasone propionate (FLONASE) 50 mcg/actuation nasal spray 1 [place] by Each Nare route 2 times daily. Active losartan (COZAAR) 50 mg tablet Take 1 tablet by mouth at bedtime. 1 Active sucroferric oxyhydroxide (VELPHORO) 500 mg chewable tablet Take 500 mg by mouth 3 times daily (with meals). Active aspirin 81 mg EC tablet Take 1 tablet (81 mg total) by mouth 1 (one) time each day. Active atorvastatin (LIPITOR) 20 mg tablet Take 10 mg by mouth at bedtime. Active calcium carbonate EX (TUMS EX) 300 mg (750 mg) chewable tablet Chew 1 tablet (300 mg total) 1 (one) time each day. Active carvediloL (COREG) 6.25 mg tablet Take 1 tablet (6.25 mg total) by mouth 2 (two) times a day with meals. Active docusate sodium (COLACE) 100 mg capsule Take 1 capsule (100 mg total) by mouth 2 (two) times a day. Active lactulose (CHRONULAC) solution Take by mouth 1 (one) time each day. Active fluticasone propionate (FLONASE) 50 mcg/actuation nasal spray Administer 1 spray into each nostril 1 (one) time each day. Shake gently. Before first use, prime pump. After use, clean tip and replace cap. Active gabapentin (NEURONTIN) 100 mg capsule Take 1 capsule (100 mg total) by mouth 3 (three) times a day. Active glucagon 1 mg/0.2 mL syringe Inject under the skin. Active dextrose 40 % gel Take by mouth. Each tube of gel contains 15 g of glucose. Active lidocaine 4 % patch Apply 1 patch topically. Active sodium zirconium cyclosilicate (Lokelma) 10 gram packet Take 10 g by mouth 1 (one) time each day. Mix contents of the packet(s) into a glass with at least 3 tablespoons of water and stir well. Drink the mixture right away. If any powder is left in the glass, add more water, stir, and drink it right away to make sure all the medicine has been taken. Active melatonin 3 mg tablet Take by mouth. Activ e multivitamin with minerals tablet Take 1 tablet by mouth 1 (one) time each day. Active polyethylene glycol (MIRALAX) 17 gram packet Take 17 g by mouth 1 (one) time each day. Active pantoprazole (PROTONIX) 40 mg EC tablet Take 1 tablet (40 mg total) by mouth 1 (one) time each day before breakfast. Do not crush, chew, or split. Active senna (SENOKOT) 8.6 mg tablet Take 1 tablet (8.6 mg total) by mouth 1 (one) time each day. Active tiZANidine (ZANAFLEX) 2 mg capsule Take 1 capsule (2 mg total) by mouth 3 (three) times a day. Active traMADoL (ULTRAM) 50 mg tablet Take by mouth. Ac tive traZODone (DESYREL) 50 mg tablet Take 1 tablet (50 mg total) by mouth at bedtime. Active Active Problems Problem Noted Date Diagnosed Date Hospital discharge follow-up 03/01/2025 Assessment & Plan (03/01/2025 4:21 PM EDT): Orders: ECG 12 lead Paroxysmal atrial fibrillation ([facility] V24, CMS /HCC V28) 03/01/2025 Assessment & Plan (03/01/2025 4:21 PM EDT): In sinus rhythm today. Now status post leadless pacemaker. He has an AVEIR leadless pacemaker model [id number] which is MRI conditional. If he were to need an MRI and assuming this would be done through [facility], pre and post MRI scan steps would be followed with arrangements through the [facility] EP service. Sick sinus syndrome (CMS/HCC V24, CMS/HCC V28) 0 03/01/2025 Assessment & Plan (03/01/2025 4:21 PM EDT): Status post leadless pacemaker for prolonged conversion pauses. Is set up and monitored via our device clinic. Internal carotid artery stenosis 02/27/2025 Atrial flutter ([facility] V24, CMS/HCC V28) 2022 Overview (11/15/2024): Last [...] today, well-controlled. Continue losartan, Bumex, and carvedilol. Assessment & Plan (03/01/2025 4:21 PM EDT): Blood pressure is well controlled this afternoon in the office following IV fluid administration and monitoring overnight in the [facility] ER for hypotension. Will defer to his dialysis team for any adjustments to his antihypertensive medication or treatment with midodrine. Would hesitate to decrease beta alec dose given his propensity to afib with RVR when he does have parosysms. Prediabetes 06/26/2021 Encounters Date Type Department Care Team Description 2025 12:30 PM EDT Office Visit [facility] Card[facility] [address] [place] [phone] Courtney Sandoval PA Hospital discharge follow-up (Primary Dx); Paroxysmal atrial fibrillation ([facility] V24, [facility] V28); Primary hypertension; Sick sinus syndrome ([facility] V24, [facility] V28) 02/22/2025 Telephone [facility] - [address] [place] [phone] Marquise Torrez MD REHAB: [facility] 02/14/2025 Telephone [facility] - [address] [place] [phone] Marquise Torrez MD Returned Mail from Last 3 Months Surgical History Surgery Date Site/Laterality Comments COLONOSCOPY 07/09/2017 PROCEDURE: HISTORICAL COLONOSCOPY OTHER SURGICAL HISTORY 2016 PROCEDURE: HISTORY OTHER; COMMENT: Creation of graft fistula for dialysis OTHER SURGICAL HISTORY PROCEDURE: VA ABLATE L/R ATRIAL FIBRIL W/ISOLATED PULM VEIN Medical History Medical History Date Comments Cataract 06/26/2021 DX:Cataract Cutaneous neurofibroma DX:Cutane ous neurofibroma; COMMENT: isolated ESRD (end stage renal diseas e) ([facility] V24, [facility] V28) DX:ESRD (end stage renal dis ease) ([facility]); COMMENT: follows with Dr. 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 Vision loss of left eye Family History Medical History Relation Name Comments [...] Sign Reading Time Taken Comments Blood Pressure 138/61 2025 12:31 PM EDT Pulse 93 12/01/2022 1:32 PM EST Temperature - - Respiratory Rate - - Oxygen Saturation 98% 2025 12:31 PM EDT Inhaled Oxygen Concentration - - Weight 77.1 kg (170 lb) 2025 12:31 PM EDT Height 180.3 cm (5' 11 ) 2025 12:31 PM EDT Body Mass Index 23.71 2025 12:31 PM EDT Plan of Treatment Health Maintenance Due [...] 2024 08/04/2022, 04/03/2022, 08/23/2021, Additional history exists Influenza Vaccine (#1) 2025 , 08/02/2023, 08/02/2021, Additional history exists Diabetes: Blood Sugar Control Test (HGBA1C) 07/20/2025 01/18/2025, 01/18/2025 Hypertension/CHF/CAD Annual BMP Blood Test 10/10/2025 10/10/2024 DTaP,Tdap,and Td Vaccines (2 - Td or Tdap) 02/19/2028 02/18/2018 Pneumococcal Vaccine: 50+ Years (4 of 4 - PCV20 or PCV21) 11/17/2028 11/17/2023, 11/15/2018, 09/15/2018 Cholesterol Screening (Lipid Panel) 01/18/2030 01/18/2025, 07/04/2021 Hepatitis B Vaccines Completed 04/25/2022, 02/19/2022, 01/22/2022, Additional history exists HIB Vaccines Aged Out [...] this topic Medical Devices Implanted Type Area Mechanical Project Engineer Device Identifier Shelf Expiration Date Model / Serial / Lot Abbt-Stju Aveir Vr Lp [id number] Cardiac Pacemaker [employer] [id number] / [id number] / Procedures Procedure Name Priority Date/Time Associated Diagnosis Comments ECG 12-LEAD Routine 03/01/2025 4:08 PM EDT Hospital discharge follow-up LIPID PANEL Routine 07/04/2021 from Last 3 Months or Most Recently Relevant to Health Maintenance Results * ECG 12 lead (03/01/2025 4:08 PM EDT) Ventricular Rate ECG 61 BPM GEMUSE Atrial Rate 61 BPM GEMUSE P-R Interval 188 ms GEMUSE QRS Duration 86 ms GEMUSE Q-T Interval 420 ms GEMUSE QTc 422 ms GEMUSE P Wave [place] 89 degrees GEMUSE R [place] 24 degrees GEMUSE T [place] 43 degrees GEMUSE ECG Interpretation Normal sinus rhythm Low voltage QRS When compared with ECG of 09-JAN-2010 09:47, T wave inversion less evident in Anterior leads Confirmed by VILLASEÑOR, BRIGIDA ([id number]) on 03/06/2025 9:30:46 PM GEMUSE 2025 12:3 5 PM EDT 03/06/2025 9:30 PM EDT Courtney WILSON ECG ORDERABLES Edited Result - Final GEMUSE * (ABNORMAL) Lipid panel (07/04/2021) LDL/HDL Ratio 4 0 - 4 Triglycerides 104 0 - 150 mg/dL Cholesterol 179 0 - 200 mg/dL HDL 50 >=40 mg/dL LDL Cholesterol 109(A) 0 - 100 mg/dL Blood Venous blood specimen / Unknown [facility] Provider LAB BLOOD ORDERABLES Whit l Result from Last 3 Months or Most Recently Relevant to Health Maintenance Insurance MEDICAID - [place] [facility] MEDICARE Care Teams Pump Attendant Relationship Specialty Start Date End Date Larissa Pérez MD [address] [place] [address] PCP - General 10/19/23
[2025-04-24 10:32] LABS: Hematocrit 28.4 % (42.0-52.0); Hemoglobin 9.0 g/dl (14.0-18.0); Imm Gran Abs Auto 0.08 X10*3/uL (0.00-0.03); Imm Gran Pct Auto 0.6 % (0.0-0.4); Lymphocytes Absolute Auto 0.9 X10*3/uL (1.2-4.9); Mean Corpuscular HGB Conc 31.7 g/dl (31.0-36.0); Mean Corpuscular Hemoglobin 31.1 pg (27.0-33.0); Mean Corpuscular Volume 98.3 fL (80.0-98.0); NRBC Abs Auto 0.000 X10*3/uL (0.0-0.012); NRBC Pct Auto 0.0 /100WBC (0.0-0.2); Platelet Count 192 X10*3/uL (160-400); Red Blood Count 2.89 X10*6/uL (4.60-5.80); White Blood Count 13.4 X10*3/uL (4.8-10.8)
[2025-04-24 11:21] LABS: Alanine Aminotransferase 97 U/L (0-40); Albumin Level 3.7 g/dL (3.5-5.0); Alkaline Phosphatase 76 U/L (39-117); Anion Gap 19 (12-20); Aspartate Amino Transferase 18 U/L (5-37); Blood Urea Nitrogen 49 mg/dL (9-16); Calcium 9.6 mg/dL (8.4-10.2); Carbon Dioxide 28 mmol/L (22-29); Chloride 94 mmol/L (96-108); Estimated Glomerular Filt Rate 7; Potassium 5.1 mmol/L (3.3-5.1); Sodium 136 mmol/L (135-145); Total Protein 7.3 g/dL (6.5-8.0)
== END 2025-04-24 00:01 | disposition home or self-care (01) ==
LOC: HO.MMNH2L
PROVIDERS: Visit Provider Student in an Organized Health Care Education/Training Program
DX: N18.6 End stage renal disease (principal); I21.3 ST elevation (STEMI) myocardial infarction of unspecified site; M62.59 Muscle wasting and atrophy, not elsewhere classified, multiple sites
CPT/HCPCS: 36415; 80048; 80076; 85025

== ENCOUNTER 2025-05-17 06:09 | Outpatient (REF) | payer MEDICARE, MEDICAID, SELFPAY ==
[2025-05-17 06:12] LABS: MANUAL DIFF FLAG NO
[2025-05-17 06:28] LABS: Hematocrit 34.4 % (42.0-52.0); Hemoglobin 10.8 g/dl (14.0-18.0); Imm Gran Abs Auto 0.06 X10*3/uL (0.00-0.03); Imm Gran Pct Auto 0.4 % (0.0-0.4); Lymphocytes Absolute Auto 1.2 X10*3/uL (1.2-4.9); Mean Corpuscular HGB Conc 31.4 g/dl (31.0-36.0); Mean Corpuscular Hemoglobin 29.0 pg (27.0-33.0); Mean Corpuscular Volume 92.5 fL (80.0-98.0); NRBC Abs Auto 0.000 X10*3/uL (0.0-0.012); NRBC Pct Auto 0.0 /100WBC (0.0-0.2); Platelet Count 214 X10*3/uL (160-400); Red Blood Count 3.72 X10*6/uL (4.60-5.80); White Blood Count 13.8 X10*3/uL (4.8-10.8)
[2025-05-17 07:14] LABS: Anion Gap 20 (12-20); Blood Urea Nitrogen 51 mg/dL (9-16); Calcium 10.0 mg/dL (8.4-10.2); Carbon Dioxide 25 mmol/L (22-29); Chloride 97 mmol/L (96-108); Estimated Glomerular Filt Rate 8; Potassium 5.0 mmol/L (3.3-5.1); Sodium 137 mmol/L (135-145)
== END 2025-05-17 06:10 | disposition home or self-care (01) ==
LOC: HO.MMNH2L 06:09
PROVIDERS: Visit Provider Student in an Organized Health Care Education/Training Program
DX: E11.22 Type 2 diabetes mellitus with diabetic chronic kidney disease (principal); N18.6 End stage renal disease; Z99.2 Dependence on renal dialysis
CPT/HCPCS: 36415; 80048; 85025

== ENCOUNTER 2025-07-19 14:12 | Outpatient (REF) | payer MEDICARE, MEDICAID, SELFPAY ==
[2025-07-19 14:16] LABS: MANUAL DIFF FLAG NO
[2025-07-19 14:21] LABS: Hematocrit 32.3 % (42.0-52.0); Hemoglobin 9.9 g/dl (14.0-18.0); Imm Gran Abs Auto 0.01 X10*3/uL (0.00-0.03); Imm Gran Pct Auto 0.2 % (0.0-0.4); Lymphocytes Absolute Auto 1.1 X10*3/uL (1.2-4.9); Mean Corpuscular HGB Conc 30.7 g/dl (31.0-36.0); Mean Corpuscular Hemoglobin 29.8 pg (27.0-33.0); Mean Corpuscular Volume 97.3 fL (80.0-98.0); NRBC Abs Auto 0.000 X10*3/uL (0.0-0.012); NRBC Pct Auto 0.0 /100WBC (0.0-0.2); Platelet Count 118 X10*3/uL (160-400); Red Blood Count 3.32 X10*6/uL (4.60-5.80); White Blood Count 6.6 X10*3/uL (4.8-10.8)
[2025-07-19 14:45] LABS: Anion Gap 12 (12-20); Blood Urea Nitrogen 29 mg/dL (9-16); Calcium 9.2 mg/dL (8.4-10.2); Carbon Dioxide 34 mmol/L (22-29); Chloride 98 mmol/L (96-108); Estimated Glomerular Filt Rate 12; Potassium 4.5 mmol/L (3.3-5.1); Sodium 139 mmol/L (135-145)
--- OUTSIDE RECORDS SUMMARY | 2025-07-19 15:49 | XMS_ITS | Encounter Summary ---
Author Organization [facility] Address [address] [place] [phone] Phone Care Team Providers Care Gold Assayer Name Role Phone Delores Painter MD Primary Care Provider [phone] Encounter Details Date Type Department Care Team (Late st Contact Info) Description 06/07/2025 TCM in Dialysis Clinic [facility]. [address] [phone] Cherrie Infante MD [address] [address] Social History Tobacco Use Types [...] as of this encounter Progress Notes * Cherrie Infante MD - 06/07/2025 12:00 AM EDT Patient: Alton Thornton : 1960 Note Type: Dialysis TCM Service Date: 06/07/2025 The patient was seen for a [id number] visit as part of Transitional Care Management services. Attending Washery Boss: CHERRIE INFANTE MD Dialysis Location: [facility] Schedule: Shift: 1 INTERACTIVE CONTACT Contact with the patient or caregiver was made or attempted within 2 business days of discharge - details in the medical record. HOSPITALIZATION SUMMARY Patient transitioned from: Hospital Patient transitioned to: Assisted Living Facility Admit Date: 06/01/2025 Discharge Date: 06/03/2025 Discharged info reviewed: Followed-up on or reviewed need for pending tests/treatments as noted HOME MEDICATIONS Discharge med list reviewed - changes reconciled and discussed with patient. PHYSICAL EXAM Exam performed. Vital Signs Reviewed. CV - Blood pressure noted. No edema. EXT - No ulcers. CARE COORDINATION Post-discharge follow-up appointments reviewed with the patient. VISIT DIAGNOSES CPT Code 09843 - High complexity, seen 8-14 days post discharge or moderate complexity, seen [id number] days of discharge. N18.6 End stage renal disease Signed by: CHERRIE INFANTE MD on 06/08/2025 at 05:18:40 AM Transcribed by: CHERRIE INFANTE MD on 06/08/2025 at 05:18:40 AM documented in this encounter Plan of Treatment Upcoming Encounters Date Type Department Care Team (Late st Contact Info) Description 12/14/2025 12:30 PM EST Scheduled Only [facility] [address] [place] [address] documented as of this encounter Visit Diagnoses Not on filedocumented in this encounter Care Teams Gold Assayer Relationship Specialty Start Date End Date Delores Painter MD [address] PCP - General 10/28/20 documented as of this encounter
--- OUTSIDE RECORDS SUMMARY | 2025-07-19 15:50 | XMS_ITS | Clinical Summary ---
Author Organization [facility] Address [address] [place] [phone] Phone Care Team Providers Care Vp Scientific Name Role Phone Delores Painter MD Primary Care Provider [phone] Allergies No known active allergies Medications Velphoro 500 MG chewable tablet 3 tablets 3 (three) times a day before meals 2 tablets 3 times/ day AND once tablet with snacks 04/02/20 20 Active apixaban (ELIQUIS) 5 MG tablet Take 1 tablet by mouth twice a day 04/26/20 21 Active carvedilol (COREG) 25 MG tablet Take 1 tablet (25 mg total) by mouth in the morning and 1 tablet (25 mg total) in the evening. 60 tablet 3 11/11/19 22 Active atorvastatin (LIPITOR) 10 MG tablet 0 Refills, Maintenance, 07/25/21 11:22:00 EDT, Partial fill upon patient request if the prescription is for a schedule II opioid drug. 07/25/20 21 Active Fosrenol 1000 MG pack MIX 2 PACKETS WITH SMALL AMOUNT OF APPLESAUCE OR SIMILAR FOOD. EAT IMMEDIATELY 3 TIMES/DAY WITH MEALS 01/06/20 23 Active acetaminophen (TYLENOL) 325 MG tablet Take 325 mg by mouth every 6 (six) hours if needed for mild pain Active predniSONE (DELTASONE) 20 MG tablet TAKE 3 TABLETS BY MOUTH ONCE DAILY FOR 4 DAYS THEN STOP 07/13/20 24 Active Multiple Vitamin (MULTIVITAMIN ADULT PO) Take 1 tablet by mouth in the morning. Active aspirin (ST JODY) 81 MG EC tablet Take 81 mg by mouth in the morning. Active bumetanide (BUMEX) 2 MG tablet Take 1 tablet by mouth in the morning and 1 tablet in the evening. 06/27/20 21 Active calcium carbonate EX (TUMS EX) 750 MG chewable tablet Chew 300 mg in the morning. Active dextrose (GLUTOSE) 40 % gel Take by mouth Active Docusate Sodium (DSS) 100 MG capsule Take 100 mg by mouth in the morning and 100 mg in the evening. Active fluticasone (FLONASE) 50 MCG/ACT nasal spray 1 spray in the morning. Active Glucagon 1 MG/0.2ML solution prefilled syringe Inject under the skin Active Lidocaine 4 % patch Apply 1 patch topically Active lactulose (ENULOSE) 10 GM/15ML solution oral solution Take by mouth in the morning. Active losartan (COZAAR) 50 MG tablet Take 1 tablet by mouth at bed time 06/27/20 21 Active melatonin 3 MG tablet Take by mouth Active midodrine (PROAMATINE) 5 MG tablet 02/29/20 25 Active ondansetron (ZOFRAN) 4 MG tablet 03/08/20 25 Active polyethylene glycol (GLYCOLAX) 17 g packet Take 17 g by mouth in the morning. Active senna (SENOKOT) 8.6 MG tablet Take 8.6 mg by mouth in the morning. Active tiZANidine (ZANAFLEX) 2 MG tablet 03/09/20 25 Active bisacodyl (DULCOLAX) 10 MG suppository Insert 10 mg into the rectum 1 (one) time each day Active pantoprazole (PROTONIX) 40 MG EC tablet Take 40 mg by mouth 1 (one) time each day before breakfast Do not crush, chew, or split. Active Sodium Zirconium Cyclosilicate (Lokelma) 10 g pack Take by mouth Active traZODone (DESYREL) 100 MG tablet Take 50 mg by mouth every night Active gabapentin (NEURONTIN) 100 MG capsule Take 100 mg by mouth in the morning and 100 mg in the evening and 100 mg before bedtime. Active traMADol (ULTRAM) 50 MG tablet Take 50 mg by mouth every 8 (eight) hours if needed for moderate pain Active Active Problems Problem Noted Date Diagnosed Date Pacemaker status 03/30/2025 Muscle wasting and atrophy, not elsewhere classified, multiple sites 03/30/2025 Heart disease 03/30/2025 Problems with swallowing and mastication 025 Cirrhosis of liver without mention of alcohol Central cord syndrome at C3 level of cervical spinal cord, subsequent encounter 03/30/2025 Sick sinus syndrome 03/01/2025 Internal carotid artery stenosis 02/27/2025 Calculus of gallbladder and bile duct with acute and chronic cholecystitis with obstruction 11/20/2024 Fracture of neck, unspecified, initial encounter 08/07/2024 Ascites 06/13/2024 Portal hypertension 06/13/2024 Sickle cell trait 06/13/2024 Unspecified open wound, right hip, initial encou nter 01/26/2023 Hyperkalemia 01/01/2023 Atrial flutter 12/01/2022 Overview (03/30/2025): Last Assessment & Plan: He has paroxysmal atrial flutter and is undergone several cardioversions with eventual ablation in 2009. He is in atrial flutter today and asymptomatic with this. We will update an echocardiogram however continue rate control strategy given lack of symptoms. Continue anticoagulation with Eliquis for CVA prophylaxis. Hyperlipidemia 12/01/2022 Overview (03/30/2025): Last Assessment & Plan: Last lipid panel from June 2021. Total cholesterol 179, HDL 50, LDL 109. Continue statin therapy. 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 [address] [place] [phone] Zeeshan Infante MD End stage renal disease; Dependence on renal dialysis 07/07/2025 Treatment [facility] [address] [phone] Zeeshan Infante MD End stage renal disease; Dependence on renal dialysis 06/30/2025 Treatment [facility] [address] [phone] Zeeshan Infante MD End stage renal disease; Dependence on renal dialysis 06/29/2025 10:30 AM EDT Office Visit [facility] [address] [place] [address] [place] [phone] Vimal Madrid MD Left inguinal hernia (Primary Dx); End stage renal disease (HCC) 06/21/2025 Treatment [facility] [address] [phone] Zeeshan Infante MD End stage renal disease; Dependence on renal dialysis 06/16/2025 Treatment [facility] [address] [phone] Zeeshan Infante MD End stage renal disease; Dependence on renal dialysis 06/15/2025 10:00 AM EDT Office Visit [facility] [address] [place] [address] [place] [phone] Osmel Matson MD End stage renal disease (HCC) (Primary Dx) 06/13/2025 Telephone [facility] [address] [place] [address] [place] [phone] Jennifer Suarez 06/12/2025 Treatment [facility] [address] [phone] Zeeshan Infante MD End stage renal disease; Dependence on renal dialysis 06/07/2025 [facility] in Dialysis Clinic [facility] [address] [phone] Zeeshan Infante MD 06/07/2025 [facility] [address] [phone] Zeeshan Infante MD End stage renal disease; Dependence on renal dialysis 05/22/2025 [facility] [address] [phone] Zeeshan Infante MD End stage renal disease; Dependence on renal dialysis 05/15/2025 [facility] [address] [phone] Zeeshan Infante MD End stage renal disease; Dependence on renal dialysis 05/12/2025 [facility] [address] [phone] Zeeshan Infante MD End stage renal disease; Dependence on renal dialysis 04/24/2025 [facility] [address] [phone] Zeeshan Infante MD End stage renal disease; Dependence on renal dialysis 04/21/2025 [facility] [address] [phone] Zeeshan Infante MD End stage renal disease; Dependence on renal dialysis from Last 3 Months Immunizations Immunization Administration [...] Sign Reading Time Taken Comments Blood Pressure 133/65 03/30/2025 1:23 PM EDT Pulse 81 03/30/2025 1:23 PM EDT Temperature 36.8 C (98.3 F) 03/30/2025 1:23 PM EDT Respiratory Rate 16 03/30/2025 1:23 PM EDT Oxygen Saturation 93% 03/30/2025 1:23 PM EDT Inhaled Oxygen Concentration - - Weight 70.3 kg (155 lb) 03/30/2025 1:23 PM EDT Height 177.8 cm (5' 10 ) 03/30/2025 1:23 PM EDT Body Mass Index 22.24 03/30/2025 1:23 PM EDT Plan of Treatment Upcoming Encounters Date Type Department Care Team (Late st Contact Info) Description 12/14/2025 12:30 PM EST Scheduled Only [facility] [address] [place] [address] [place] [phone] Health Maintenance Due Date Last Done Comments Hepatitis B Vaccine (1 of 5 - Risk Dialysis 4-dose series) 1980 09/23/2016, 08/26/2016 Colorectal Cancer Screening: Annual FOBT 02/29/2008 Colorectal Cancer Screening: Colonoscopy 02/29/2008 Colorectal Cancer Screening: Sigmoidoscopy 02/29/2008 Diabetes: Ophthalmology Exam 11/18/2020 Diabetes: Pedal Pulse Checked 11/18/2020 Diabetes: Sensory Foot Exam 11/18/2020 Diabetes: Visual Foot Exam 11/18/2020 Influenza Vaccine (#1) 2025 3, 08/12/2022, 08/02/2021, Additional history exists Diabetes: Hemoglobin A1C 07/22/2025 025, 01/18/2025, 07/19/2024, Additional history exists Pneumococcal Vaccine: 50+ Ye ars (4 of 4 - PCV20 or PCV21) 11/17/2028 11/17/2023, 11/15/2018, 09/15/2018 Pneumococcal Vaccine: Peds ( 0 to 5 Years) and At-Risk Patients (6 to 49 Years) Discontinued 11/17/2023, 11/15/2018, 09/15/2018 Procedures Procedure Name Priority Date/Time Associated Diagnosis Comments HEMOGLOBIN Routine 07/05/2025 3:00 AM EDT LIH () Routine 06/26/2025 3:00 AM EDT KT/V NATURAL LOG, URR () Routine 06/26/2025 3:00 AM EDT TRANSFERRIN SATURATION Routine 3:00 AM EDT PROTEIN, TOTAL, SERUM Routine 06/21/2025 3:00 AM EDT ELECTROLYTE PANEL Routine 06/21/2025 3:0 0 AM EDT MAGNESIUM Routine 06/21/2025 3:00 AM EDT LIH () Routine 06/21/2025 3:00 AM EDT GLUCOSE, RANDOM Routine 06/21/2025 3:00 AM EDT BUN/CREATININE RATIO Routine 06/21/2025 3:00 AM EDT LACTATE DEHYDROGENASE Routine 06/21/2025 3:00 AM EDT CREATININE, SERUM Routine 06/21/2025 3:0 0 AM EDT BILIRUBIN, TOTAL Routine 06/21/2025 3:00 AM EDT AST Routine 06/21/2025 3:00 AM EDT ALT Routine 06/21/2025 3:00 AM EDT ALKALINE PHOSPHATASE Routine 06/21/2025 3:00 AM EDT CALCIUM PHOSPHORUS PRODUCT, ADJUSTED (HC) Routine 06/21/2025 3:00 AM EDT HEPATITIS B SURFACE ANTIGEN W/REFL CONFIRM Routine 06/21/2025 3:00 AM EDT FERRITIN Routine 06/21/2025 3:00 AM EDT KT/V NATURAL LOG, URR (HC) Routine 06/21/2025 3:00 AM EDT CBC AND DIFFERENTIAL Routine 06/21/2025 3:00 AM EDT HEMOGLOBIN Routine 06/14/2025 3:00 AM EDT HEPATITIS B SURFACE ANTIGEN W/REFL CONFIRM Routine 05/24/2025 3:00 AM EDT PROTEIN, TOTAL, SERUM Routine 05/24/2025 3:00 AM EDT TRANSFERRIN SATURATION Routine 3:00 AM EDT ELECTROLYTE PANEL Routine 05/24/2025 3:0 0 AM EDT KT/V NATURAL LOG, URR (HC) Routine 05/24/2025 3:00 AM EDT MAGNESIUM Routine 05/24/2025 3:00 AM EDT LACTATE DEHYDROGENASE Routine 05/24/2025 3:00 AM EDT LIH (HC) Routine 05/24/2025 3:00 AM EDT GLUCOSE, RANDOM Routine 05/24/2025 3:00 AM EDT CREATININE, SERUM Routine 05/24/2025 3:0 0 AM EDT BILIRUBIN, TOTAL Routine 05/24/2025 3:00 AM EDT BUN/CREATININE RATIO Routine 05/24/2025 3:00 AM EDT AST Routine 05/24/2025 3:00 AM EDT ALKALINE PHOSPHATASE Routine 05/24/2025 3:00 AM EDT ALT Routine 05/24/2025 3:00 AM EDT CALCIUM PHOSPHORUS PRODUCT, ADJUSTED (HC) Routine 05/24/2025 3:00 AM EDT FERRITIN Routine 05/24/2025 3:00 AM EDT CBC AND DIFFERENTIAL Routine 05/24/2025 3:00 AM EDT HEMOGLOBIN Routine 05/17/2025 3:00 AM EDT HEMOGLOBIN Routine 05/12/2025 3:00 AM EDT HEMOGLOBIN Routine 05/10/2025 3:00 AM EDT HEMOGLOBIN Routine 05/05/2025 3:00 AM EDT HEMOGLOBIN Routine 05/03/2025 3:00 AM EDT HEMOGLOBIN Routine 05/01/2025 3:00 AM EDT FERRITIN Routine 04/21/2025 3:00 AM EDT TRANSFERRIN SATURATION Routine 3:00 AM EDT PROTEIN, TOTAL, SERUM Routine 04/21/2025 3:00 AM EDT ELECTROLYTE PANEL Routine 04/21/2025 3:0 0 AM EDT MAGNESIUM Routine 04/21/2025 3:00 AM EDT LIPID PANEL Routine 04/21/2025 3:00 AM EDT LIH (HC) Routine 04/21/2025 3:00 AM EDT GLUCOSE, RANDOM Routine 04/21/2025 3:00 AM EDT LACTATE DEHYDROGENASE Routine 04/21/2025 3:00 AM EDT CREATININE, SERUM Routine 04/21/2025 3:0 0 AM EDT BUN/CREATININE RATIO Routine 04/21/2025 3:00 AM EDT AST Routine 04/21/2025 3:00 AM EDT ALT Routine 04/21/2025 3:00 AM EDT BILIRUBIN, TOTAL Routine 04/21/2025 3:00 AM EDT CALCIUM PHOSPHORUS PRODUCT, ADJUSTED (HC) Routine 04/21/2025 3:00 AM EDT ALKALINE PHOSPHATASE Routine 04/21/2025 3:00 AM EDT HEPATITIS C ABS W/REFLEX RNA DETECTR Routine 04/21/2025 3:00 AM EDT CONFIRMATION TEST HCV Routine 04/21/2025 3:00 AM EDT HEPATITIS B SURFACE ANTIGEN W/REFL CONFIRM Routine 04/21/2025 3:00 AM EDT PTH, INTACT Routine 04/21/2025 3:00 AM EDT HEMOGLOBIN A1C Routine 04/21/2025 3:00 AM EDT CBC AND DIFFERENTIAL Routine 04/21/2025 3:00 AM EDT KT/V NATURAL LOG, URR (HC) Routine 04/21/2025 3:00 AM EDT from Last 3 Months Results * (ABNORMAL) Hemoglobin (07/05/2025 3:00 AM EDT) Only the most recent of8 resultswithin the time period is included. Hgb 10.8(L) 13.7 - 17.5 g/dL [facility] Hemoglobin x 3 32.4(L) 41.1 - 52.5 g/dL [facility] 07/05/2025 3:00 AM EDT 07/06/2025 3:03 PM EDT us Zeeshan Infante MD LAB BLOOD ORDERABLES Final Result Performing Organization Address [facility] Co de Phone Number [facility] [address] [place] [address] * LIH (06/26/2025 3:00 AM EDT) Only the most recent of4 resultswithin the time period is included. Lipemia Normal Normal [facility] Icterus Normal Normal [facility] Hemolysis Normal Normal [facility] 06/26/2025 3:00 AM EDT 06/27/2025 2:57 PM EDT Zeeshan Infante MD LAB HISTORICA [id number] RESULTS Final Result Performing Organization Address City/[facility] Co de Phone Number [facility] [address] [place] [address] * (ABNORMAL) Kt/V Natural Log, URR (06/26/2025 3:00 AM EDT) Only the most recent of4 resultswithin the time period is included. Treatment Time 215 min [facility] Pre-Weight, lb 67.7 kg [facility] Post-Weight, lb 65.5 kg [facility] BUN Post Dialysis 16 7 - 25 mg/dL [facility] BUN 58(H) 7 - 25 mg/dL [facility] UREA REDUCTION RATIO (%) 72 >=65 % [facility] Kt/V Natural Log 1.50 >=1.2 [facility] Ultrafiltration Rate 9 <=13 mL/kg/hr [facility] Comment: Recommend achieving Ultrafiltration Rate (UFR) <=10 mL/kg/hr References: Julio Cesar TY et al. Kidney Int. 2010; 79(2):250-257 06/26/2025 3:00 AM EDT 06/27/2025 2:36 PM EDT Zeeshan Infante MD LAB [id number] RESULTS Edited Result - Final [facility] [address] [place] [address] * Calcium Phosphorus Product, Adjusted (06/21/2025 3:00 AM EDT) Only the most recent of3 resultswithin the time period is included. Albumin 3.9 3.6 - 5.4 g/dL [facility] Calcium 9.8 8.6 - 10.3 mg/dL [facility] Phosphorus, Serum 4.2 2.5 - 5.0 mg/dL [facility] Ca*PO4 41.2 <55.0 mg2/dL2 [facility] Calcium, Adjusted Total 9.9 8.6 - 10.3 mg/dL [facility] CA*PO4 CORRCTD 41.6 <55.0 mg2/dL2 [facility] 06/21/2025 3:00 AM EDT 06/22/2025 11:57 AM EDT Zeeshan Infante MD LAB HISTORICA [id number] RESULTS Final Result Performing Organization Address City/[facility]/ZIP Co de Phone Number [facility] [address] [place] [address] * Hepatitis B Surface Ag w/Reflex Confirmation (06/21/2025 3:00 AM EDT) Only the most recent of3 resultswithin the time period is included. Hep B Surface Antigen Negative Negative [facility] 06/21/2025 3:00 AM EDT 06/22/2025 11:57 AM EDT us Zeeshan Infante MD LAB BLOOD ORDERABLES Final Result Performing Organization Address [facility] Co de Phone Number [facility] [address] [place] [address] * BUN/CREATININE RATIO (06/21/2025 3:00 AM EDT) Only the most recent of3 resultswithin the time period is included. BUN/Creatinine Ratio 8.2 <=23.0 [facility] 06/21/2025 3:00 AM EDT 06/22/2025 11:57 AM EDT us Zeeshan Infante MD LAB HISTORICA [id number] RESULTS Final Result Performing Organization Address [facility] de Phone Number [facility] [address] [place] [address] * (ABNORMAL) TSAT (06/21/2025 3:00 AM EDT) Only the most recent of3 resultswithin the time period is included. Iron 50(L) 65 - 175 ug/dL [facility] Transferrin 152(L) 215 - 365 mg/dL [facility] TIBC 213 211 - 406 ug/dL [facility] Iron Saturation (TSat) 23 22 - 52 % [facility] 06/21/2025 3:00 AM EDT 06/22/2025 11:57 AM EDT us Zeeshan Infante MD LAB BLOOD ORDERABLES Final Result Performing Organization Address [facility] Co de Phone Number [facility] [address] [place] [address] * (ABNORMAL) CBC and Differential (06/21/2025 3:00 AM EDT) Only the most recent of3 resultswithin the time period is included. DIFFERENTIAL MANUAL, 2 Not Indicated [facility] White Blood Cells 7.8 4.2 - 9.1 K/uL [facility] RBC 3.50(L) 4.63 - 6.08 M/uL [facility] Hgb 10.7(L) 13.7 - 17.5 g/dL [facility] Hemoglobin x 3 32.1(L) 41.1 - 52.5 g/dL [facility] Hematocrit 33.6(L) 40.1 - 51.0 % [facility] MCV 96.0(H) 79.0 - 92.2 fL [facility] MCH 30.6 25.7 - 32.2 pg [facility] MCHC 31.8(L) 32.3 - 36.5 g/dL [facility] RDW 17.3(H) 11.6 - 14.4 % [facility] Platelets 94(L) 163 - 337 K/uL [facility] Comment:Verified by repeat a nalysis MPV 13.4(H) 9.1 - 13.0 fL [facility] Neutrophils Relative 70.8(H) 34.0 - 67.9 % [facility] Lymphocytes Relative 14.9(L) 21.8 - 53.1 % [facility] Monocytes 6.7 5.3 - 12.2 % [facility] Eosinophils Relative 5.9 0.8 - 7.0 % [facility] Basophils Relative 1.2 0.2 - 1.2 % [facility] Immature Granulocytes 0.5 0.0 - 1.0 % [facility] 06/21/2025 3:00 AM EDT 06/22/2025 11:51 AM EDT Zeeshan Infante MD LAB BLOOD ORDERABLES Final Result [facility] [address] [place] [address] * ALT (06/21/2025 3:00 AM EDT) Only the most recent of3 resultswithin the time period is included. ALT (SGPT) 21 10 - 49 U/L [facility] 06/21/2025 3:00 AM EDT 06/22/2025 11:57 AM EDT us Zeeshan Infante MD LAB BLOOD ORDERABLES Final Result Performing Organization Address [facility] Co de Phone Number [facility] [address] [place] [address] * AST (06/21/2025 3:00 AM EDT) Only the most recent of3 resultswithin the time period is included. AST (SGOT) 15 <34 U/L [facility] 06/21/2025 3:00 AM EDT 06/22/2025 11:57 AM EDT us Zeeshan Infante MD LAB BLOOD ORDERABLES Final Result Performing Organization Address [facility] de Phone Number [facility] [address] [place] [address] * Protein, total (06/21/2025 3:00 AM EDT) Only the most recent of3 resultswithin the time period is included. Total Protein 7.6 6.4 - 8.9 g/dL [facility] 06/21/2025 3:00 AM EDT 06/22/2025 11:57 AM EDT us Zeeshan Infante MD LAB BLOOD ORDERABLES Final Result Performing Organization Address [facility] de Phone Number [facility] [address] [place] [address] * Alkaline phosphatase (06/21/2025 3:00 AM EDT) Only the most recent of3 resultswithin the time period is included. Alkaline Phosphatase 89 46 - 116 U/L [facility] 06/21/2025 3:00 AM EDT 06/22/2025 11:57 AM EDT us Zeeshan Infante MD LAB BLOOD ORDERABLES Final Result Performing Organization Address [facility] Co de Phone Number [facility] [address] [place] [address] * Magnesium (06/21/2025 3:00 AM EDT) Only the most recent of3 resultswithin the time period is included. Magnesium 2.1 1.9 - 2.7 mg/dL [facility] 06/21/2025 3:00 AM EDT 06/22/2025 11:57 AM EDT us Zeeshan Infante MD LAB BLOOD ORDERABLES Final Result Performing Organization Address [facility] Co de Phone Number [facility] [address] [place] [address] * (ABNORMAL) Lactate dehydrogenase (06/21/2025 3:00 AM EDT) Only the most recent of3 resultswithin the time period is included. LDH 330(H) 120 - 246 U/L [facility] 06/21/2025 3:00 AM EDT 06/22/2025 11:57 AM EDT us Zeeshan Infante MD LAB BLOOD ORDERABLES Final Result Performing Organization Address [facility] Phone Number [facility] [address] [place] [address] * (ABNORMAL) Glucose, random (06/21/2025 3:00 AM EDT) Only the most recent of3 resultswithin the time period is included. Glucose 108(H) 70 - 99 mg/dL [facility] Comment: ADA guidelines outline the following fasting glucose ranges: Normal: <100 Prediabetes: 100-125 Diabetes: >125 06/21/2025 3:00 AM EDT 06/22/2025 11:57 AM EDT us Zeeshan Infante MD LAB BLOOD ORDERABLES Final Result Performing Organization Address [facility] de Phone Number [facility] [address] [place] [address] * (ABNORMAL) Ferritin (06/21/2025 3:00 AM EDT) Only the most recent of3 resultswithin the time period is included. Ferritin 1,274(H) 22 - 322 ng/mL [facility] 06/21/2025 3:00 AM EDT 06/22/2025 11:57 AM EDT Zeeshan Infante MD LAB BLOOD ORDERABLES Final Result Performing Organization Address City/[facility] Co de Phone Number [facility] [address] [place] [address] * (ABNORMAL) Creatinine, serum (06/21/2025 3:00 AM EDT) Only the most recent of3 resultswithin the time period is included. Creatinine 5.36(H) 0.70 - 1.30 mg/dL [facility] 06/21/2025 3:00 AM EDT 06/22/2025 11:57 AM EDT Zeeshan Infante MD LAB BLOOD ORDERABLES Final Result Performing Organization Address [facility] Co de Phone Number [facility] [address] [place] [address] * Bilirubin, total (06/21/2025 3:00 AM EDT) Only the most recent of3 resultswithin the time period is included. Total Bilirubin 0.5 0.3 - 1.2 mg/dL [facility] 06/21/2025 3:00 AM EDT 06/22/2025 11:57 AM EDT Zeeshan Infante MD LAB BLOOD ORDERABLES Final Result Performing Organization Address City/[facility] Co de Phone Number [facility] [address] [place] [address] * (ABNORMAL) Electrolyte panel (06/21/2025 3:00 AM EDT) Only the most recent of3 resultswithin the time period is included. Sodium 137 136 - 145 mEq/L [facility] Potassium 5.4(H) 3.4 - 5.0 mEq/L [facility] Chloride 97(L) 98 - 107 mEq/L [facility] Bicarbonate (CO2) 27 21 - 31 mEq/L [facility] Anion Gap 13 3 - 14 mEq/L [facility] 06/21/2025 3:00 AM EDT 06/22/2025 11:57 AM EDT Zeeshan Infante MD LAB BLOOD ORDERABLES Final Result Performing Organization Address [facility] de Phone Number [facility] [address] [place] [address] * Confirmation Test HCV (04/21/2025 3:00 AM EDT) [facility] Hep C Ab Confirmation Not needed [facility] 04/21/2025 3:00 AM EDT 04/23/2025 12:49 PM EDT Zeeshan Infante MD LAB BLOOD ORDERABLES Final Result Performing Organization Address [facility] de Phone Number [facility] [address] [place] [address] * HEPATITIS C ABS W/REFLEX RNA DETECTR (04/21/2025 3:00 AM EDT) [facility] Hep C Virus Ab Non-Reacti ve Non-Reacti ve [facility] 04/21/2025 3:00 AM EDT 04/23/2025 12:49 PM EDT Zeeshan Infante MD LAB HISTORICA [id number] RESULTS Final Result Performing Organization Address [facility] de Phone Number [facility] [address] [place] [address] * (ABNORMAL) PTH, Intact (04/21/2025 3:00 AM EDT) [facility] PTH, Intact 150(L) 160 - 721 pg/mL [facility] Comment: Suggested (KDIGO) ESRD maintenance range is two to nine times the upper normal limit (80.1 pg/mL) for the laboratory. 04/21/2025 3:00 AM EDT 04/23/2025 12:49 PM EDT us Zeeshan Infante MD LAB BLOOD ORDERABLES Final Result Performing Organization Address [facility] de Phone Number [facility] [address] [place] [address] * Hemoglobin A1c (04/21/2025 3:00 AM EDT) Hemoglobin A1C 4.9 <5.7 % [facility] Comment: Methodology: Enzymatic Normal: <5.7% Prediabetes: 5.7-6.4% Diabetes: >6.4% Diabetic Glucose Control Evaluation: Therapeutic action suggested at >8.0% ADA recommends a glycemic goal of <7.0% 04/21/2025 3:00 AM EDT 04/23/2025 12:49 PM EDT Zeeshan Infante MD LAB BLOOD ORDERABLES Final Result Performing Organization Address [facility] de Phone Number [facility] [address] [place] [address] * (ABNORMAL) Lipid panel (04/21/2025 3:00 AM EDT) Cholesterol 122 mg/dL [facility] Comment: Optimal: <200 Borderline: 200-239 High Risk: >239 Triglycerides 81 mg/dL [facility] Comment: Optimal: <150 Borderline: 150-200 High Risk: >200 HDL 51(L) mg/dL [facility] Comment: Optimal: >59 Borderline: 40-59 High Risk: <40 LDL-Calc 55 mg/dL [facility] Comment: Optimal: <100 Borderline: 100-159 High Risk: >159 VLDL Cholesterol Thien 16 mg/dL [facility] Comment: Optimal: <30 Borderline: 30-40 High Risk: >40 Chol/HDL Ratio 2.4 [facility] Comment: Optimal: <3.3 High Risk: >6.2 04/21/2025 3:00 AM EDT 04/23/2025 12:49 PM EDT us Zeeshan Infante MD LAB BLOOD ORDERABLES Final Result [facility] [address] [place] [address] from Last 3 Months Insurance Medicaid [place] Medicare Medicare Medicaid [place] Medicare Medicaid [place] Care Teams Vp Scientific Relationship Specialty Start Date End Date Delores Painter MD [address] PCP - General 10/28/20
--- OUTSIDE RECORDS SUMMARY | 2025-07-19 15:50 | XMS_ITS | Clinical Summary ---
Author Organization [facility] Address [address] [place] [address] Phone Care Team Providers Care Brim Pouncing Machine Operator Name Role Phone Larissa Pérez MD Primary Care Provider [phone] Allergies No known active allergies Medications apixaban (ELIQUIS) 5 mg tablet Take 1 Tablet by mouth 2 times daily. Active bumetanide (BUMEX) 2 mg tablet Take 1 tablet by mouth 2 times daily. 1 Active carvediloL (COREG) 25 mg tablet Take 25 mg by mouth 2 times daily (with meals). Active fluticasone propionate (FLONASE) 50 mcg/actuation nasal spray 1 Armstrong by Each Nare route 2 times daily. [...] Orders: ECG 12 lead Paroxysmal atrial fibrillation ([facility] V24, CMS /HCC V28) 03/01/2025 Assessment & Plan (03/01/2025 4:21 PM EDT): In sinus rhythm today. Now status post leadless pacemaker. He has an AVEIR leadless pacemaker model [id number] which is MRI conditional. If he were to need an MRI and assuming this would be done through [facility], pre and post MRI scan steps would be followed with arrangements through the [facility] EP service. Sick sinus syndrome (CMS/HCC V24, CMS/HCC V28) 0 03/01/2025 Assessment & Plan (03/01/2025 4:21 PM EDT): Status post leadless pacemaker for prolonged conversion pauses. Is set up and monitored via our device clinic. Internal carotid artery stenosis 02/27/2025 Atrial flutter (CMS/[facility] V24, CMS/HCC V28) 2022 Overview (11/15/2024): Last [...] fluid administration and monitoring overnight in the [facility] ER for hypotension. Will defer to his dialysis team for any adjustments to his antihypertensive medication or treatment with midodrine. Would hesitate to decrease beta alec dose given his propensity to afib with RVR when he does have parosysms. Prediabetes 06/26/2021 Encounters Date Type Department Care Team Description 07/12/2025 Telephone [facility] - [address] [place] [address] Kassy Tan MD 05/29/2025 Telephone [facility] [address] [place] [address] Provider, Not In System from Last 3 Months Surgical History Surgery Date Site/Laterality Comments COLONOSCOPY 07/09/2017 PROCEDURE: HISTORICAL COLONOSCOPY OTHER SURGICAL HISTORY 2015 PROCEDURE: HISTORY OTHER; COMMENT: Creation of graft fistula for dialysis OTHER SURGICAL HISTORY PROCEDURE: DE ABLATE L/R ATRIAL FIBRIL W/ISOLATED PULM VEIN Medical History Medical History Date Comments Cataract 06/26/2021 DX:Cataract Cutaneous neurofibroma DX:Cutane ous neurofibroma; COMMENT: isolated ESRD (end stage renal diseas e) ([facility] V24, [facility] V28) DX:ESRD (end stage renal dis ease) ([facility]); COMMENT: follows with Dr. Hernandez Gout DX:Gout Poor dentition DX:Poor dentitio n Prediabetes DX:Prediabetes Type 2 diabetes mellitus ( S/HCC V24, [facility] V28) DX:Type 2 diabetes mellitus ([facility]) Right shoulder pain Hypertension Hyperlipidemia Cardiac resynchronization th erapy pacemaker (WIRER HELPER-P) in place Vision loss of left eye [...] 2025 12:31 PM EDT Plan of Treatment Upcoming Encounters Date Type Department Care Team (Late st Contact Info) Description 07/20/2025 1:40 PM EDT Consult [facility] - [facility] [address] [facility] [address] [place] [address] Randell Mcclain NP [address] [place] [address] Health Maintenance Due Date Last Done Comments Colorectal Cancer Screening: Colonoscopy 1959 Diabetes: Annual Foot Exam 1969 Diabetes: Annual Retina Eye Exam 1969 Zoster Vaccines (1 of 2) 1978 RSV Immunization Adult Patients (1 - Risk 60-74 years 1-dose series) 2019 Hepatitis C Screening 09/15/2022 Medicare Annual Wellness Visit 09/15/2022 Social Influencers of Health Screening 09/15/2022 Falls Risk Assessment 02/29/2024 Depression Screening 10/18/2024 COVID-19 Vaccine ( season) 2025 08/04/2022, 04/03/2022, 08/23/2021, Additional history exists Influenza [...] this topic Medical Devices Implanted Type Area Radio Interference Trouble Shooter Device Identifier Shelf Expiration Date Model / Serial / Lot Abbt-Stju Aveir Vr Lp [id number] Cardiac Pacemaker [employer] A[employer]IR VR LP [id number] / [id number] / Procedures Procedure Name Priority Date/Time Associated Diagnosis Comments LIPID PANEL Routine 07/04/2021 from Last 3 Months or Most Recently Relevant to Health Maintenance Results * (ABNORMAL) Lipid panel (07/04/2021) LDL/HDL Ratio 4 0 - 4 Triglycerides 104 0 - 150 mg/dL Cholesterol 179 0 - 200 mg/dL HDL 50 >=40 mg/dL LDL Cholesterol 109(A) 0 - 100 mg/dL Blood Venous blood specimen / Unknown Historical Provider LAB BLOOD ORDERABLES Whit louie Result from Last 3 Months or Most Recently Relevant to Health Maintenance [place] [address] [place] [address] MEDICARE MEDICAID [place] Care Teams Brim Pouncing Machine Operator Relationship Specialty Start Date End Date Larissa Pérez MD [address] [place] [address] PCP - General 10/19/23
--- OUTSIDE RECORDS SUMMARY | 2025-07-19 15:50 | XMS_ITS | Clinical Summary ---
Author Organization [facility] Address [address] [place] [phone] Phone Care Team Providers Care Squeegee Tender Name Role Phone Unavailable Primary Care Provider Unavailabl e Social History Tobacco Use Types Packs/Day Years Used Date Smoking Tobacco: Never Assessed Education Answer Date Recorded Are you interested in more education? Not on michelle e 10/10/2024 Are you concerned about learning? Not on file 10/10/2024 No 10/10/2024 No 10/10/2024 Digital Access Answer Date Recorded No 10/10/2024 No 10/10/2024 Reliable internet access at home? Not on file 10/10/2024 Device with a working camera? Not on file Sex and Gender Information Value Date Recorded Sex Assigned at Not on file Legal Sex Male 3:26 PM EDT Gender Identity Not on file Sexual Orientation Not on file Plan of Treatment Not on file Medical Devices Not on file [facility] [place] [facility] [place], [place] [address]B Additional Source Comments The information contained in this document represents components of the legal health record. It is not the complete legal health record.[facility]
--- OUTSIDE RECORDS SUMMARY | 2025-07-19 15:50 | XMS_ITS | Encounter Summary ---
Author Organization [facility] Address [address] [place] [phone] Phone Care Team Providers Care Mechanical Systems Control Engineer Name Role Phone Delores Painter MD Primary Care Provider + [phone] Encounter Details Date Type Department Care Team (Late st Contact Info) Description 07/14/2025 Treatment [facility] [address] [address] Cherrie Infante MD [address] [address] End stage renal disease; Dependence [...] Dialysis Note - Cherrie Infante MD - 07/14/2025 12:00 AM EDT BASIC NOTE Patient: Alton Thornton : 1960 Note Author: CHERRIE INFANTE MD Service Date: 07/14/2025 This patient was personally seen [id number] for a basic visit as part of routine monthly dialysis care for end stage renal disease. Attending Association Executive: CHERRIE INFANTE MD Dialysis Location: [facility] Schedule: Shift: 1 OVERVIEW Patient is stable. HOME MEDICATIONS Current [facility] Outpatient Medications acetaminophen (TYLENOL) tablet Take 325 [...] spKt/V (Daugirdas II) 1.51 (07/24/24) 1.32 (07/19/24) Kt/V, Natural Log 1.50 (06/26/25) See Comment (06/21/25) 1.75 (05/24/25) eKdrt/V 1.30 (07/24/24) 1.16 (07/19/24) UREA REDUCTION RATIO (%) 72 (06/26/25) ?95 (06/21/25) 78 (05/24/25) % Urea Reduction 74 (07/24/24) 67 (07/19/24) BUN 58 (06/26/25) 44 (06/21/25) 45 (05/24/25) BUN Post Dialysis 16 (06/26/25) ?2 (06/21/25) 10 (05/24/25) Creatinine 5.36 (06/21/25) 6.47 (05/24/25) 5.96 (04/21/25) Bicarbonate (CO2) 27 (06/21/25) 28 (05/24/25) 28 (04/21/25) Sodium 137 (06/21/25) 135 (05/24/25) 138 (04/21/25) ANEMIA ASSESSMENT Hgb 10.8 (07/05/25) 10.7 (06/21/25) 10.7 (06/14/25) Hemoglobin 13.2 (08/02/24) 13.0 (07/26/24) 13.4 (07/19/24) Iron Saturation (TSat) 23 (06/21/25) 15 (05/24/25) 24 (04/21/25) Ferritin 1,274 (06/21/25) 1,151 (05/24/25) 1,615 (04/21/25) Iron 50 (06/21/25) 26 (05/24/25) 50 (04/21/25) TIBC 213 (06/21/25) 175 (05/24/25) 207 (04/21/25) Reticulocyte Hemoglobin 35.2 (07/19/24) MCV 96.0 (06/21/25) 95.7 (05/24/25) 105.0 (04/21/25) Platelets 94 (06/21/25) 199 (05/24/25) 203 (04/21/25) BMM ASSESSMENT Calcium, Adjusted Total 9.9 06/21/25 9.8 05/24/25 9.7 04/21/25 Calcium 9.8 06/21/25 9.6 05/24/25 9.7 04/21/25 Corrected Calcium 9.4 07/19/24 Phosphorus, Serum 4.2 06/21/25 5.0 05/24/25 4.7 04/21/25 Phosphorus 6.8 07/19/24 Ca*PO4 41.2 06/21/25 48.0 05/24/25 45.6 04/21/25 Calcium Phosphorus Product 63 07/19/24 PTH, Intact 150 04/21/25 47 01/18/25 Vitamin D, 25-OH, Total 23.8 07/19/24 Magnesium 2.1 06/21/25 2.4 05/24/25 2.4 04/21/25 Alkaline Phosphatase 89 06/21/25 85 05/24/25 76 04/21/25 Aluminum ?5 07/19/24 NUTRITION ASSESSMENT Albumin 3.9 06/21/25 3.7 05/24/25 4.0 04/21/25 Potassium 5.4 06/21/25 5.3 05/24/25 4.3 04/21/25 eNPCR 1.31 07/24/24 0.99 07/19/24 Hemoglobin A1C 4.9 04/21/25 4.6 01/18/25 6.9 07/19/24 ADDITIONAL LABS White Blood Cells 7.8 (06/21/25) 7.9 (05/24/25) 6.5 (04/21/25) WBC 6.48 (07/19/24) Cholesterol 122 (04/21/25) 137 (01/18/25) HDL 51 (04/21/25) 52 (01/18/25) LDL-Calc 55 (04/21/25) 67 (01/18/25) Triglycerides 81 (04/21/25) 90 (01/18/25) Hepatitis B Surface Ab ?1,000 (07/19/24) Signed by: CHERRIE INFANTE MD on 07/14/2025 at 08:51:16 AM Transcribed by: CHERRIE INFANTE MD on 07/14/2025 at 08:51:16 AM documented in this encounter Plan of Treatment Upcoming Encounters Date Type Department Care Team (Late st Contact Info) Description 12/14/2025 12:30 PM EST Scheduled Only [facility] [address] [place] [place] [address] documented as of this encounter Visit Diagnoses Diagnosis End stage renal disease Dependence on renal dialysis documented in this encounter Care Teams Mechanical Systems Control Engineer Relationship Specialty Start Date End Date Delores Painter MD [address] PCP - General 10/28/20 documented as of this encounter
--- OUTSIDE RECORDS SUMMARY | 2025-07-19 15:50 | XMS_ITS | Encounter Summary ---
Author Organization [facility] [place] [address] Care Team Providers Care Supply Cataloguer Name Role Phone Larissa Pérez MD Primary Care Provider [phone] Reason for Visit * Reason Onset Date Comments Pre-operative Clearance 07/12/2025 Encounter Details Date Type Department Care Team ([facility] st Contact Info) Description 07/12/2025 Telephone [facility] - [facility] [address] [facility] [address] [place] [address] Kassy Tan MD [address] [place] [address] Social History Tobacco Use Types Packs/Day Years [...] as of this encounter Progress Notes * Allyssa Suarez - 07/12/2025 11:40 AM EDT Received a Fax from Sofy at [facility] to schedule the patient for a pre-op appointment. I spoke with Sofy and scheduled for 07/20/25 with Randell. She will be calling back to provide the surgeons information. documented in this encounter Plan of Treatment Upcoming Encounters Date Type Department Care Team (Late st Contact Info) Description 07/20/2025 1:40 PM EDT Consult [facility] - [facility] [address] [facility] [address] [place] [address] Randell Mcclain NP [address] [place] [address] documented as of this encounter Visit Diagnoses Not on filedocumented in this encounter Care Teams Supply Cataloguer Relationship Specialty Start Date End Date Larissa Pérez MD [address] [place] [address] PCP - General 10/19/23 documented as of this encounter
== END 2025-07-19 14:13 | disposition home or self-care (01) ==
LOC: HO.MMNH2L 14:12
PROVIDERS: Visit Provider Physician Assistant Medical
DX: N18.6 End stage renal disease (principal)
CPT/HCPCS: 36415; 80048; 85025

== ENCOUNTER 2025-07-24 11:21 | Outpatient (REF) | payer MEDICARE, MEDICAID, SELFPAY ==
--- OUTSIDE RECORDS SUMMARY | 2025-07-20 13:40 | XMS_ITS | Encounter Summary ---
Author Organization [facility] Address [address] [place] [address] Care Team Providers Care Bolt Man Name Role Phone Larissa Pérez MD Primary Care Provider [phone] Reason for Visit * Reason Comments Pre-op Exam Encounter Details Date Type Department Care Team (Late st Contact Info) Description 07/20/2025 1:40 PM EDT Consult [facility] - [facility] [address] [facility] [address] [place] [address] Randell Mcclain NP [address] [place] [address] Paroxysmal atrial fibrillation (CMS/HCC V24, CMS/HCC V28) (Primary Dx); Sick sinus syndrome (CMS/HCC V24, CMS/HCC V28); Primary hypertension; Hyperlipidemia, unspecified hyperlipidemia type; Coronary artery disease involving havasupai coronary artery of havasupai heart, unspecified whether angina present Social History Tobacco Use Types Packs/Day Years [...] on file documented as of this encounter Last Filed Vital Signs Vital Sign Reading Time Taken Comments Blood Pressure 132/80 07/20/2025 1:55 PM EDT Pulse 94 07/20/2025 1:55 PM EDT Temperature - - Respiratory Rate - - Oxygen Saturation 97% 07/20/2025 1:55 PM EDT Inhaled Oxygen Concentration - - Weight 65.8 kg (145 lb) 07/20/2025 1:55 PM EDT Height 180.3 cm (5' 11 ) 07/20/2025 1:55 PM EDT Body Mass Index 20.22 07/20/2025 1:55 PM EDT documented in this encounter Ordered Prescriptions Prescription Sig Dispense Quantity Refills Last Filled Start Date End Date apixaban (ELIQUIS) 5 mg tablet Take 0.5 tablets (2.5 mg total) by mouth 2 (two) times a day. 07/20/2025 clopidogreL (PLAVIX) 75 mg tablet Take 1 tablet (75 mg total) by mouth 1 (one) time each day. 90 each 1 07/20/2025 metoprolol succinate (TOPROL-XL) 25 mg 24 hr tablet Take 0.5 tablets (12.5 mg total) by mouth 1 (one) time each day. Do not crush or chew. 90 each 1 07/20/2025 documented in this encounter Progress Notes * Randell Mcclain NP - 07/20/2025 2:42 PM EDTAssociated Problem(s): Coronary artery disease involving havasupai coronary artery of havasupai heart Unfortunately the patient had discontinued the Plavix. He should be on this in addition to the Eliquis for 1 year post stents which would put him to 04/2026. Going to restart the Plavix at the appointment today. Should also remain on the atorvastatin 20 mg p.o. daily, will update CMP and likely uptitrate this. Instructed to call 911 or go to the emergency room should the patient begin to experience chest pain or pressure lasting greater than 10 minutes does not resolve with rest. * Randell Mcclain NP - 07/20/2025 2:41 PM EDTAssociated Problem(s): Hyperlipidemia He is utilizing atorvastatin 20 mg p.o. daily. This was titrated down from atorvastatin 80 mg p.o. daily due to elevated liver functions. I am going to update a BMP but would like to update the atorvastatin to at least 40 mg p.o. daily. * Randell Mcclain NP - 07/20/2025 2:40 PM EDTAssociated Problem(s): Hypertension Well-controlled in the office today. Utilizing losartan 50 mg p.o. daily, Bumex, will reintroduce the metoprolol 12.5 succinate p.o. daily. If patient is hypertensive at his dialysis sessions can hold metoprolol on day of dialysis. Utilizes midodrine as needed. * Randell Mcclain NP - 07/20/2025 2:38 PM EDTAssociated Problem(s): Paroxysmal atrial fibrillation (CMS/HCC V24, CMS/HCC V28) Patient is in A-fib at the appointment today. He is not on rate control ventricular rate is in the 90s, I do think he would benefit from a low-dose metoprolol. This was likely discontinued at his recent hospital visit secondary to hypotension however blood pressure better at the appointment today. I am going to start him on the lowest dose of the metoprolol succinate 12.5 mg p.o. daily. This for rate control. Also should continue to utilize the reduced dose Eliquis 2.5 mg p.o. daily. Should remain anticoagulated due to an elevated CHADS2 Vascor. Denies any abnormal bleeding. * Randell Mcclain NP - 07/20/2025 2:38 PM EDTAssociated Problem(s): Sick sinus syndrome (CMS/HCC V24, CMS/HCC V28) Pacemaker in place MRI conditional. Denies any recent syncopal events. documented in this encounter Plan of Treatment Scheduled Orders Name Type Priority Associated Diagnoses Orde r Schedule Comprehensive metabolic panel Lab Routine Primary hypertension 1 Occurrences starting 07/20/2025 until 07/20/2026 documented as of this encounter Procedures Procedure Name Priority Date/Time Associated Diagnosis Comments ECG 12-LEAD Routine 07/20/2025 2:45 PM EDT Paroxysmal atrial fibrillation (CMS/HCC V24, CMS/HCC V28) documented in this encounter Results * ECG 12 lead (07/20/2025 2:45 PM EDT) 07/20/2025 1:59 PM EDT Randell Mcclain NP ECG ORDERABLES Final Result GEMUSE documented in this encounter Visit Diagnoses Diagnosis Paroxysmal atrial fibrillation (CMS/HCC V24, CMS/HCC V28)- Primary Atrial fibrillation Sick sinus syndrome (CMS/HCC V24, CMS/HCC V28) Sinoatrial node dysfunction Primary hypertension Unspecified essential hypertension Hyperlipidemia, unspecified hyperlipidemia type Coronary artery disease involving havasupai coronary artery of havasupai heart, unspecified whether angina present documented in this encounter Discontinued Medications Medication Sig Discontinue Reason Start Date End Da te carvediloL (COREG) 25 mg tablet Take 25 mg by mouth 2 times daily (with meals). 07/20/2025 carvediloL (COREG) 6.25 mg tablet Take 1 tablet (6.25 mg total) by mouth 2 (two) times a day with meals. 07/20/2025 apixaban (ELIQUIS) 5 mg tablet Take 1 Tablet by mouth 2 times daily. 07/20/2025 documented as of this encounter Care Teams Bolt Man Relationship Specialty Start Date End Date Larissa Pérez MD [address] [place] [address] PCP - General 10/19/23 documented as of this encounter
[2025-07-24 11:25] LABS: MANUAL DIFF FLAG NO
[2025-07-24 11:29] LABS: Hematocrit 30.5 % (42.0-52.0); Hemoglobin 9.7 g/dl (14.0-18.0); Imm Gran Abs Auto 0.01 X10*3/uL (0.00-0.03); Imm Gran Pct Auto 0.3 % (0.0-0.4); Lymphocytes Absolute Auto 0.6 X10*3/uL (1.2-4.9); Mean Corpuscular HGB Conc 31.8 g/dl (31.0-36.0); Mean Corpuscular Hemoglobin 30.2 pg (27.0-33.0); Mean Corpuscular Volume 95.0 fL (80.0-98.0); NRBC Abs Auto 0.000 X10*3/uL (0.0-0.012); NRBC Pct Auto 0.0 /100WBC (0.0-0.2); Red Blood Count 3.21 X10*6/uL (4.60-5.80); White Blood Count 4.0 X10*3/uL (4.8-10.8)
[2025-07-24 11:32] LABS: Platelet Count 83 X10*3/uL (160-400)
[2025-07-24 11:37] LABS: Anion Gap 9 (12-20); Blood Urea Nitrogen 15 mg/dL (9-16); Calcium 8.6 mg/dL (8.4-10.2); Carbon Dioxide 32 mmol/L (22-29); Chloride 101 mmol/L (96-108); Estimated Glomerular Filt Rate 27; Potassium 3.4 mmol/L (3.3-5.1); Sodium 139 mmol/L (135-145)
--- OUTSIDE RECORDS SUMMARY | 2025-07-24 14:19 | XMS_ITS | Encounter Summary ---
Author Organization [facility] Address [address] [place] [address] Phone Care Team Providers Care Screen Making Supervisor Name Role Phone Delores Painter MD Primary Care Provider + [phone] Encounter Details Date Type Department Care Team (Late st Contact Info) Description 06/07/2025 TCM in Dialysis Clinic [facility]. [address] [address] Cherrie Infante MD [address] [address] Social History Tobacco Use Types [...] as of this encounter Progress Notes * Cherire Infante MD - 06/07/2025 12:00 AM EDT Patient: Alton Thornton : 1960 Note Type: Dialysis TCM Service Date: 06/07/2025 The patient was seen for a [id number] visit as part of Transitional Care Management services. Attending Logistics Supply Officer: CHERRIE INFANTE MD [facility] [...] with the patient. VISIT DIAGNOSES CPT Code 62941 - High complexity, seen 8-14 days post discharge or moderate complexity, seen [id number] days of discharge. N18.6 End stage renal disease Signed by: CHERRIE INFANTE MD on 06/08/2025 at 05:18:40 AM Transcribed by: CHERRIE INFANTE MD on 06/08/2025 at 05:18:40 AM documented in this encounter Plan of Treatment Upcoming Encounters Date Type Department Care Team (Late st Contact Info) Description 12/14/2025 12:30 PM EST Scheduled Only [facility] [address] [place] [address] documented as of this encounter Visit Diagnoses Not on filedocumented in this encounter Care Teams Screen Making Supervisor Relationship Specialty Start Date End Date Delores Painter MD [address] PCP - General 10/28/20 documented as of this encounter
--- OUTSIDE RECORDS SUMMARY | 2025-07-24 14:20 | XMS_ITS | Encounter Summary ---
Author Organization [facility] Address [address] [place] [phone] Phone Care Team Providers Care Mesh Cutter Name Role Phone Delores Painter MD Primary Care Provider [phone] Encounter Details Date Type Department Care Team (Late st Contact Info) Description 07/21/2025 Treatment [facility]. [address] [address] Cherrie Infante MD [address] [address] End stage renal disease; Dependence [...] Dialysis Note - Cherrie Infante MD - 07/21/2025 12:00 AM EDT Patient: Alton Thornton : 1960 Note Type: Dialysis Rounds-Comp Service Date: 07/21/2025 This patient was personally seen [id number] for a complete visit as part of routine monthly dialysis care for end stage renal disease. Attending Party Demonstrator: CHERRIE INFANTE MD Dialysis Location: [facility] Schedule: Shift: 1 OVERVIEW Patient is stable. HOME MEDICATIONS Medications reviewed. Current [facility] Outpatient Medications acetaminophen (TYLENOL) tablet Take 325 [...] ADEQUACY ASSESSMENT spKt/V (Daugirdas II) 1.51 (07/24/24) Kt/V, Natural Log 1.70 (07/19/25) 1.50 (06/26/25) See Comment (06/21/25) eKdrt/V 1.30 (07/24/24) UREA REDUCTION RATIO (%) 77 (07/19/25) 72 (06/26/25) ?95 (06/21/25) % Urea Reduction 74 (07/24/24) BUN 35 (07/19/25) 58 (06/26/25) 44 (06/21/25) BUN Post Dialysis 8 (07/19/25) 16 (06/26/25) ?2 (06/21/25) Creatinine 6.69 (07/19/25) 5.36 (06/21/25) 6.47 (05/24/25) Bicarbonate (CO2) 30 (07/19/25) 27 (06/21/25) 28 (05/24/25) Sodium 140 (07/19/25) 137 (06/21/25) 135 (05/24/25) Target met. Prescription compliance acceptable. ACCESS ASSESSMENT Vascular access examined. ANEMIA ASSESSMENT Hgb 10.4 (07/19/25) 10.8 (07/05/25) 10.7 (06/21/25) Hemoglobin 13.2 (08/02/24) 13.0 (07/26/24) Iron Saturation (TSat) 19 (07/19/25) 23 (06/21/25) 15 (05/24/25) Ferritin 988 (07/19/25) 1,274 (06/21/25) 1,151 (05/24/25) Iron 40 (07/19/25) 50 (06/21/25) 26 (05/24/25) TIBC 207 (07/19/25) 213 (06/21/25) 175 (05/24/25) MCV 96.8 (07/19/25) 96.0 (06/21/25) 95.7 (05/24/25) Platelets 128 (07/19/25) 94 (06/21/25) 199 (05/24/25) Anemia targets met. Hemoglobin at target. BMM ASSESSMENT Calcium, Adjusted Total 9.9 07/19/25 9.9 06/21/25 9.8 05/24/25 Calcium 9.9 07/19/25 9.8 06/21/25 9.6 05/24/25 Phosphorus, Serum 3.6 07/19/25 4.2 06/21/25 5.0 05/24/25 Ca*PO4 35.6 07/19/25 41.2 06/21/25 48.0 05/24/25 PTH, Intact 163 07/19/25 150 04/21/25 47 01/18/25 Magnesium 2.0 07/19/25 2.1 06/21/25 2.4 05/24/25 Alkaline Phosphatase 92 07/19/25 89 06/21/25 85 05/24/25 PTH within target. Phosphorus controlled. Calcium controlled. Bone and mineral metabolism parameters reviewed. NUTRITION ASSESSMENT Albumin 4.0 07/19/25 3.9 06/21/25 3.7 05/24/25 Potassium 5.5 07/19/25 5.4 06/21/25 5.3 05/24/25 eNPCR 1.31 07/24/24 Hemoglobin A1C 5.4 07/19/25 4.9 04/21/25 4.6 01/18/25 Albumin at goal. PHYSICAL EXAM Exam performed. Vital Signs Reviewed. CV - Blood pressure noted. No edema. EXT - No ulcers. ADDITIONAL LABS White Blood Cells 7.1 (07/19/25) 7.8 (06/21/25) 7.9 (05/24/25) Cholesterol 121 (07/19/25) 122 (04/21/25) 137 (01/18/25) HDL 54 (07/19/25) 51 (04/21/25) 52 (01/18/25) LDL-Calc 54 (07/19/25) 55 (04/21/25) 67 (01/18/25) Triglycerides 65 (07/19/25) 81 (04/21/25) 90 (01/18/25) Signed by: CHERRIE INFANTE MD on 07/21/2025 at 09:42:50 PM Transcribed by: CHERRIE INFANTE MD on 07/21/2025 at 09:42:50 PM documented in this encounter Plan of Treatment Upcoming Encounters Date Type Department Care Team (Late st Contact Info) Description 12/14/2025 12:30 PM EST Scheduled Only [facility] [address] [place] [address] documented as of this encounter Visit Diagnoses Diagnosis End stage renal disease Dependence on renal dialysis documented in this encounter Care Teams Mesh Cutter Relationship Specialty Start Date End Date Delores Painter MD [address] PCP - General 10/28/20 documented as of this encounter
--- OUTSIDE RECORDS SUMMARY | 2025-07-24 14:20 | XMS_ITS | Encounter Summary ---
Author Organization [facility] Address [address] [place] [address] Care Team Providers Care Director Life Name Role Phone Larissa Pérez MD Primary Care Provider [phone] Reason for Visit * Reason Onset Date Comments Pre-operative Clearance 07/12/2025 Encounter Details Date Type Department Care Team (Late st Contact Info) Description 07/12/2025 Telephone [facility] [address] [facility] [address] [place] [address] Kassy Tan MD [address] [place] [address] Social History Tobacco Use Types Packs/Day Years [...] EDT Received a Fax from Sofy at [facility] to schedule the patient for a pre-op appointment. I spoke with Sofy and scheduled for 07/20/25 with Randell. She will be calling back to provide the surgeons information. documented in this encounter Plan of Treatment Not on file documented as of this encounter Visit Diagnoses Not on filedocumented in this encounter Care Teams Director Life Relationship Specialty Start Date End Date Larissa Pérez MD [address] [place] [address] PCP - General 10/19/23 documented as of this encounter
--- OUTSIDE RECORDS SUMMARY | 2025-07-24 14:20 | XMS_ITS | Clinical Summary ---
Author Organization [facility] Address [address] [place] [address] Phone Care Team Providers Care Vamper Name Role Phone Larissa Pérez MD Primary Care Provider [phone] Allergies No known active allergies Medications bumetanide (BUMEX) 2 mg tablet Take 1 tablet by mouth 2 times daily. 06/27/20 21 Active fluticasone propionate (FLONASE) 50 mcg/actuation nasal spray 1 Holder by Each Nare route 2 times daily. Active losartan (COZAAR) 50 mg tablet Take 1 tablet by mouth at bedtime. 06/27/20 21 Active sucroferric oxyhydroxide (VELPHORO) 500 mg chewable tablet Take 500 mg by mouth 3 times daily (with meals). Active aspirin 81 mg EC tablet Take 1 tablet (81 mg total) by mouth 1 (one) time each day. Active atorvastatin (LIPITOR) 20 mg tablet Take 1 tablet (20 mg total) by mouth at bedtime. Active calcium carbonate EX (TUMS EX) 300 mg (750 mg) chewable tablet Chew 1 tablet (300 mg total) 1 (one) time each day. Active docusate sodium (COLACE) 100 mg capsule [...] (ULTRAM) 50 mg tablet Take by mouth. Activ e traZODone (DESYREL) 50 mg tablet Take 1 tablet (50 mg total) by mouth at bedtime. Active metoprolol succinate (TOPROL-XL) 25 mg 24 hr tablet Take 0.5 tablets (12.5 mg total) by mouth 1 (one) time each day. Do not crush or chew. 90 each 1 07/20/20 25 2025 Active clopidogreL (PLAVIX) 75 mg tablet Take 1 tablet (75 mg total) by mouth 1 (one) time each day. 90 each 1 07/20/20 25 2025 Active apixaban (ELIQUIS) 5 mg tablet Take 0.5 tablets (2.5 mg total) by mouth 2 (two) times a day. 07/20/20 Active apixaban (ELIQUIS) 5 mg tablet Take 1 Tablet by mouth 2 times daily. 2024 Discontinued carvediloL (COREG) 25 mg tablet Take 25 mg by mouth 2 times daily (with meals). 2024 Discontinued carvediloL (COREG) 6.25 mg tablet Take 1 tablet (6.25 mg total) by mouth 2 (two) times a day with meals. 2024 Discontinued Active Problems Problem Noted Date Diagnosed Date Coronary artery disease invo lving [place] coronary artery of [place] heart 07/20/2025 Overview (07/20/2025): Unfortunately the patient presented to the emergency room on 04/19/2025 fell at rehab facility had a workup that was concerning for inferior lateral STEMI. Had a left heart cath on 04/11/2025 with a JACKSON to OM1 and pericarditis with circumferential pericardial effusion which was possibly uremic in etiology. Status post IR paracentesis on 04/12. Course complicated by intermittent tension to initially required Levophed. Was restarted on home midodrine. Repeat echo on 04/16 showed residual large posterior pericardial effusion without tamponade, pericardial drain output into another 2 mL and anterior drain was removed. Repeat echo he was found to have significant posterior pericardial effusion for which a drain was placed with the help of IR. Output of 202 cc from the posterior pericardial drain which is monitored for 48 hours and a repeat echo of the effusion had mostly resolved. Assessment & Plan (07/20/2025 2:42 PM EDT): Unfortunately the patient had discontinued the Plavix. [...] 10 minutes does not resolve with rest. Hospital discharge follow-up 03/01/2025 Assessment & Plan (03/01/2025 4:21 PM EDT): Orders: ECG 12 lead Paroxysmal atrial fibrillation ([facility] V24, [facility] V28) 03/01/2025 Assessment & Plan (07/20/2025 2:38 PM EDT): Patient is in A-fib at the appointment [...] elevated CHADS2 Vascor. Denies any abnormal bleeding. Assessment & Plan (03/01/2025 4:21 PM EDT): In sinus rhythm today. Now status post leadless pacemaker. He has an AVEIR leadless pacemaker model [id number] which is MRI conditional. If he were to need an MRI and assuming this would be done through [facility], pre and post MRI scan steps would be followed with arrangements through the [facility] EP service. Sick sinus syndrome ([facility] V24, [facility] V28) 0 03/01/2025 Overview (07/20/2025): -status post leadless pacemaker-AVEIR leadless pacemaker model [id number] which is MRI conditional. Assessment & Plan (07/20/2025 2:38 PM EDT): Pacemaker in place MRI conditional. Denies any recent syncopal events. Assessment & Plan (03/01/2025 4:21 PM EDT): Status post leadless pacemaker for prolonged conversion pauses. Is set up and monitored via our device clinic. Internal carotid artery stenosis 02/27/2025 Atrial flutter ([facility] V24, [facility] V28) 2022 Overview (11/15/2024): Last Assessment & [...] HDL 50, LDL 109. Continue statin therapy. Assessment & Plan (07/20/2025 2:41 PM EDT): He is utilizing atorvastatin 20 mg p.o. daily. This was titrated down from atorvastatin 80 mg p.o. daily due to elevated liver functions. I am going to update a BMP but would like to update the atorvastatin to at least 40 mg p.o. daily. Hypertension 06/26/2021 Overview (11/15/2024): Last Assessment & Plan: 100/60 in office today, well-controlled. Continue losartan, Bumex, and carvedilol. Assessment & Plan (07/20/2025 2:40 PM EDT): Well-controlled in the office today. Utilizing losartan 50 mg p.o. daily, Bumex, will reintroduce the metoprolol 12.5 succinate p.o. daily. If patient is hypertensive at his dialysis sessions can hold metoprolol on day of dialysis. Utilizes midodrine as needed. Assessment & Plan (03/01/2025 4:21 PM EDT): Blood pressure is well controlled this afternoon in the office following IV fluid administration and monitoring overnight in the [facility] ER for hypotension. Will defer to his dialysis team for any adjustments to his antihypertensive medication or treatment with midodrine. Would hesitate to decrease beta alec dose given his propensity to afib with RVR when he does have parosysms. Prediabetes 06/26/2021 Encounters Date Type Department Care Team Description 07/20/2025 1:40 PM EDT Consult [facility] Cardiology [facility] [address] [place] [address] Randell Mcclain NP Paroxysmal atrial fibrillation ([facility] V24, [facility] V28) (Primary Dx); Sick sinus syndrome ([facility] V24, [facility] V28); Primary hypertension; Hyperlipidemia, unspecified hyperlipidemia type; Coronary artery disease involving [place] coronary artery of [place] heart, unspecified whether angina present 07/12/2025 Telephone [facility] Cardiology [facility] [address] [place] [phone] Kassy Tan MD 05/29/2025 Telephone [facility] Cardiology [facility] [address] [place] [address] Provider, Not In System from Last 3 Months Surgical History Surgery Date Site/Laterality Comments COLONOSCOPY 07/09/2017 PROCEDURE: HISTORICAL COLONOSCOPY OTHER SURGICAL HISTORY 2015 PROCEDURE: HISTORY OTHER; COMMENT: Creation of graft fistula for dialysis OTHER SURGICAL HISTORY PROCEDURE: GA ABLATE L/R ATRIAL FIBRIL W/ISOLATED PULM VEIN Medical History Medical History Date Comments Cataract 06/26/2021 DX:Cataract Cutaneous neurofibroma DX:Cutane ous neurofibroma; COMMENT: isolated ESRD (end stage renal diseas e) (CMS/HCC V24, [facility] V28) DX:ESRD (end stage renal dis ease) (HCC); COMMENT: follows with Dr. Hernandez Gout DX:Gout Poor dentition DX:Poor dentitio n Prediabetes DX:Prediabetes Type 2 diabetes mellitus ([facility] S/HCC V24, [facility] V28) DX:Type 2 diabetes mellitus (HCC) Right shoulder pain Hypertension Hyperlipidemia Cardiac resynchronization th erapy pacemaker (DOUBLE NEEDLE OPERATOR-P) in place Vision loss of left eye [...] Mass Index 20.22 07/20/2025 1:55 PM EDT Plan of Treatment Health Maintenance Due Date Last Done Comments Colorectal Cancer Screening: Colonoscopy 1960 Diabetes: Annual Foot Exam 1969 Diabetes: Annual Retina Eye Exam 1969 Hepatitis A Vaccines (1 of 2 - Risk 2-dose series) 1978 Zoster Vaccines (1 of 2) 1978 RSV Immunization Adult Patients (1 - Risk 60-74 years 1-dose series) 2019 Hepatitis C Screening 09/15/2022 Medicare Annual Wellness Visit 09/15/2022 Social Influencers of Health Screening 09/15/2022 Falls Risk Assessment 02/29/2024 Depression Screening 10/18/2024 COVID-19 Vaccine ( season) 2025 08/04/2022, 04/03/2022, 08/23/2021, Additional history exists Hypertension/CHF/CAD Annual BMP Blood Test 10/10/2025 10/10/2024 Diabetes: Blood Sugar Control Test (HGBA1C) 10/22/2025 04/21/2025, 04/21/2025, 01/18/2025, Additional history exists DTaP,Tdap,and Td Vaccines (2 - Td or Tdap) 02/19/2028 02/18/2018 Pneumococcal Vaccine: 50+ Years (4 of 4 - PCV20 or PCV21) 11/17/2028 11/17/2023, 11/15/2018, 09/15/2018 Cholesterol Screening (Lipid Panel) 04/21/2030 04/21/2025, 01/18/2025, 07/04/2021 Hepatitis B Vaccines Completed 04/25/2022, 02/19/2022, 01/22/2022, Additional history exists Influenza Vaccine Completed 07/10/2025, , 08/02/2023, Additional history exists HIB Vaccines Aged Out [...] this topic Medical Devices Implanted Type Area Aluminum Siding Installer Device Identifier Shelf Expiration Date Model / Serial / Lot Abbt-Stju Aveir Vr Lp [id number] Cardiac Pacemaker [employer] A[employer] VR [employer] [id number] / [id number] / Procedures Procedure Name Priority Date/Time Associated Diagnosis Comments ECG 12-LEAD Routine 07/20/2025 2:45 PM EDT Paroxysmal atrial fibrillation (CMS/HCC V24, CMS/HCC V28) LIPID PANEL Routine 07/04/2021 from Last 3 Months or Most Recently Relevant to Health Maintenance Results * ECG 12 lead (07/20/2025 2:45 PM EDT) 07/20/2025 1:59 PM EDT us Randell Mcclain NP ECG ORDERABLES Final Result GEMUSE * (ABNORMAL) Lipid panel (07/04/2021) LDL/HDL Ratio 4 0 - 4 Triglycerides 104 0 - 150 mg/dL Cholesterol 179 0 - 200 mg/dL HDL 50 >=40 mg/dL LDL Cholesterol 109(A) 0 - 100 mg/dL Blood Venous blood specimen / Unknown us Historical Provider LAB BLOOD ORDERABLES Whit l Result from Last 3 Months or Most Recently Relevant to Health Maintenance Insurance MEDICARE [place]ICAID [place] Care Teams Vamper Relationship Specialty Start Date End Date Larissa Pérez MD [address] [place] [address] PCP - General 10/19/23
--- OUTSIDE RECORDS SUMMARY | 2025-07-24 14:21 | XMS_ITS | Clinical Summary ---
Author Organization [facility] Address [address] [place] [phone] Phone Care Team Providers Care Senior National Account Manager Name Role Phone Delores Painter MD Primary Care Provider [phone] Allergies No known active allergies Medications Velphoro [...] Encounters Date Type Department Care Team Description 07/21/2025 Treatment [facility] [address] [place] [phone] Zeeshan Infante MD End stage renal disease; Dependence on renal dialysis 07/14/2025 Treatment [facility] [address] [phone] Zeeshan Infante MD End stage renal disease; Dependence on renal dialysis 07/07/2025 Treatment [facility] [address] [phone] Zeeshan Infante MD End stage renal disease; Dependence on renal dialysis 06/30/2025 Treatment [facility] [address] [phone] Zeeshan Infante MD End stage renal disease; Dependence on renal dialysis 06/29/2025 10:30 AM EDT Office Visit [facility] [address] [place] [address] [place] [phone] Vimal Madrid MD Left inguinal hernia (Primary Dx); End stage renal disease (HCC) 06/21/2025 Treatment [facility] [address] [phone] Zeeshan Infante MD End stage renal disease; Dependence on renal dialysis 06/16/2025 Treatment [facility] [address] [phone] Zeeshan Infante MD End stage renal disease; Dependence on renal dialysis 06/15/2025 10:00 AM EDT Office Visit [facility] [address] [place] [address] Osmel Matson MD End stage renal disease (HCC) (Primary Dx) 06/13/2025 Telephone [facility] [address] [place] [address] [place] [address] Jennifer Suarez 06/12/2025 Treatment [facility] [address] [phone] Zeeshan Infante MD End stage renal disease; Dependence on renal dialysis 06/07/2025 TCM in Dialysis Clinic [facility] [address] [phone] Zeeshan Infante MD 06/07/2025 Treatment [facility] [address] [phone] Zeeshan Infante MD End stage renal disease; Dependence on renal dialysis 05/22/2025 Treatment [facility] [address] [phone] Zeeshan Infante MD End stage renal disease; Dependence on renal dialysis 05/15/2025 Treatment [facility] [address] [phone] Zeeshan Infante MD End stage renal disease; Dependence on renal dialysis 05/12/2025 Treatment [facility] [address] [phone] Zeeshan Infante MD End stage renal disease; Dependence on renal dialysis 04/24/2025 Treatment [facility] [address] [phone] Zeeshan Infante MD End stage renal disease; [...] Only [facility] [address] [place] [address] [place] [address] Health Maintenance Due Date Last [...] 08/02/2021, Additional history exists Diabetes: Hemoglobin A1C 10/19/2025 025, 04/21/2025, 01/18/2025, Additional history exists Pneumococcal Vaccine: 50+ Ye ars (4 of 4 - PCV20 or PCV21) 11/17/2028 11/17/2023, 11/15/2018, 09/15/2018 Pneumococcal Vaccine: Peds ( 0 to 5 Years) and At-Risk Patients (6 to 49 Years) Discontinued 11/17/2023, 11/15/2018, 09/15/2018 Procedures Procedure Name Priority Date/Time Associated Diagnosis Comments HEMOGLOBIN A1C Routine 07/19/2025 3:00 AM EDT HEPATITIS B SURFACE ANTIGEN W/REFL CONFIRM Routine 07/19/2025 3:00 AM EDT TRANSFERRIN SATURATION Routine 3:00 AM EDT PROTEIN, TOTAL, SERUM Routine 07/19/2025 3:00 AM EDT MAGNESIUM Routine 07/19/2025 3:00 AM EDT LIPID PANEL Routine 07/19/2025 3:00 AM EDT ELECTROLYTE PANEL Routine 07/19/2025 3:0 0 AM EDT LACTATE DEHYDROGENASE Routine 07/19/2025 3:00 AM EDT BUN/CREATININE RATIO Routine 07/19/2025 3:00 AM EDT GLUCOSE, RANDOM Routine 07/19/2025 3:00 AM EDT LIH (HC) Routine 07/19/2025 3:00 AM EDT CREATININE, SERUM Routine 07/19/2025 3:0 0 AM EDT AST Routine 07/19/2025 3:00 AM EDT BILIRUBIN, TOTAL Routine 07/19/2025 3:00 AM EDT ALT Routine 07/19/2025 3:00 AM EDT ALKALINE PHOSPHATASE Routine 07/19/2025 3:00 AM EDT CALCIUM PHOSPHORUS PRODUCT, ADJUSTED (HC) Routine 07/19/2025 3:00 AM EDT FERRITIN Routine 07/19/2025 3:00 AM EDT PTH, INTACT Routine 07/19/2025 3:00 AM EDT KT/V NATURAL LOG, URR (HC) Routine 07/19/2025 3:00 AM EDT CBC AND DIFFERENTIAL Routine 07/19/2025 3:00 AM EDT HEMOGLOBIN Routine 07/05/2025 3:00 AM EDT LIH (HC) Routine 06/26/2025 3:00 AM EDT KT/V NATURAL LOG, URR (HC) Routine 06/26/2025 3:00 AM EDT TRANSFERRIN SATURATION Routine 3:00 AM EDT PROTEIN, TOTAL, SERUM Routine 06/21/2025 3:00 AM EDT ELECTROLYTE PANEL Routine 06/21/2025 3:0 0 AM EDT MAGNESIUM Routine 06/21/2025 3:00 AM EDT LIH (HC) Routine 06/21/2025 3:00 AM EDT GLUCOSE, RANDOM [...] EDT HEMOGLOBIN Routine 05/01/2025 3:00 AM EDT from Last 3 Months Results * LIH (07/19/2025 3:00 AM EDT) Only the most recent of4 resultswithin the time period is included. Lipemia Normal Normal [facility] Icterus Normal Normal [facility] Hemolysis Normal Normal [facility] 07/19/2025 3:00 AM EDT 07/20/2025 12:17 PM EDT Zeeshan Infante MD LAB HISTORICA [id number] RESULTS Final Result Performing Organization Address [facility] Co de Phone Number [facility]PS [facility] [address] [place] [address] * (ABNORMAL) Kt/V Natural Log, URR (07/19/2025 3:00 AM EDT) Only the most recent of4 resultswithin the time period is included. Treatment Time 212 min [facility] Pre-Weight, lb 67.1 kg [facility] Post-Weight, lb 65.3 kg [facility] Ultrafiltration Rate 8 <=13 mL/kg/hr [facility] Comment: Recommend achieving Ultrafiltration Rate (UFR) <=10 mL/kg/hr References: Julio Cesar TY et al. Kidney Int. 2010; 79(2):250-257 BUN 35(H) 7 - 25 mg/dL [facility] BUN Post Dialysis 8 7 - 25 mg/dL [facility] UREA REDUCTION RATIO (%) 77 >=65 % [facility] Kt/V Natural Log 1.70 >=1.2 [facility] 07/19/2025 3:00 AM EDT 07/20/2025 12:17 PM EDT us Zeeshan Infante MD LAB HISTORICA [id number] RESULTS Final Result Performing Organization Address [facility] Co de Phone Number [facility] [address] [place] [address] * Calcium Phosphorus Product, Adjusted (07/19/2025 3:00 AM EDT) Only the most recent of3 resultswithin the time period is included. Albumin 4.0 3.6 - 5.4 g/dL [facility] Calcium 9.9 8.6 - 10.3 mg/dL [facility] Phosphorus, Serum 3.6 2.5 - 5.0 mg/dL [facility] Ca*PO4 35.6 <55.0 mg2/dL2 [facility] Calcium, Adjusted Total 9.9 8.6 - 10.3 mg/dL [facility] CA*PO4 CORRCTD 35.6 <55.0 mg2/dL2 [facility] 07/19/2025 3:00 AM EDT 07/20/2025 12:17 PM EDT us Zeeshan Infante MD LAB HISTORICA [id number] RESULTS Final Result Performing Organization Address [facility] de Phone Number [facility]PS [facility] [address] [place] [address] * Hepatitis B Surface Ag w/Reflex Confirmation (07/19/2025 3:00 AM EDT) Only the most recent of3 resultswithin the time period is included. Hep B Surface Antigen Negative Negative [facility] 07/19/2025 3:00 AM EDT 07/20/2025 12:17 PM EDT us Zeeshan Infante MD LAB BLOOD ORDERABLES Final Result Performing Organization Address [facility] de Phone Number [facility] [address] [place] [address] * BUN/CREATININE RATIO (07/19/2025 3:00 AM EDT) Only the most recent of3 resultswithin the time period is included. BUN/Creatinine Ratio 5.2 <=23.0 [facility] 07/19/2025 3:00 AM EDT 07/20/2025 12:17 PM EDT us Zeeshan Infante MD LAB HISTORICA [id number] RESULTS Final Result Performing Organization Address [facility] de Phone Number [facility] [address] [place] [address] * (ABNORMAL) TSAT (07/19/2025 3:00 AM EDT) Only the most recent of3 resultswithin the time period is included. [facility] Iron 40(L) 65 - 175 ug/dL [facility] Transferrin 148(L) 215 - 365 mg/dL [facility] TIBC 207(L) 211 - 406 ug/dL [facility] Iron Saturation (TSat) 19(L) 22 - 52 % [facility] 07/19/2025 3:00 AM EDT 07/20/2025 12:17 PM EDT us Zeeshan Infante MD LAB BLOOD ORDERABLES Final Result [facility] [address] [place] [address] * (ABNORMAL) CBC and Differential (07/19/2025 3:00 AM EDT) Only the most recent of3 resultswithin the time period is included. [facility] DIFFERENTIAL MANUAL, 2 Not Indicated [facility] White Blood Cells 7.1 4.2 - 9.1 K/uL [facility] RBC 3.45(L) 4.63 - 6.08 M/uL [facility] Hgb 10.4(L) 13.7 - 17.5 g/dL [facility] Hemoglobin x 3 31.2(L) 41.1 - 52.5 g/dL [facility] Hematocrit 33.4(L) 40.1 - 51.0 % [facility] MCV 96.8(H) 79.0 - 92.2 fL [facility] MCH 30.1 25.7 - 32.2 pg [facility] MCHC 31.1(L) 32.3 - 36.5 g/dL [facility] RDW 17.2(H) 11.6 - 14.4 % [facility] Platelets 128(L) 163 - 337 K/uL [facility] MPV 12.7 9.1 - 13.0 fL [facility] Neutrophils Relative 66.2 34.0 - 67.9 % [facility] Lymphocytes Relative 15.6(L) 21.8 - 53.1 % [facility] Monocytes 8.6 5.3 - 12.2 % [facility] Eosinophils Relative 8.5(H) 0.8 - 7.0 % [facility] Basophils Relative 0.8 0.2 - 1.2 % [facility] Immature Granulocytes 0.3 0.0 - 1.0 % [facility] 07/19/2025 3:00 AM EDT 07/20/2025 12:16 PM EDT Zeeshan Infante MD LAB BLOOD ORDERABLES Final Result Performing Organization Address [facility] Co de Phone Number [facility] [address] [place] [address] * (ABNORMAL) ALT (07/19/2025 3:00 AM EDT) Only the most recent of3 resultswithin the time period is included. ALT (SGPT) 9(L) 10 - 49 U/L [facility] 07/19/2025 3:00 AM EDT 07/20/2025 12:17 PM EDT Zeeshan Infante MD LAB BLOOD ORDERABLES Final Result Performing Organization Address [facility] de Phone Number [facility] [address] [place] [address] * AST (07/19/2025 3:00 AM EDT) Only the most recent of3 resultswithin the time period is included. AST (SGOT) 10 <34 U/L [facility] 07/19/2025 3:00 AM EDT 07/20/2025 12:17 PM EDT Zeeshan Infante MD LAB BLOOD ORDERABLES Final Result Performing Organization Address [facility] de Phone Number [facility] [address] [place] [address] * Protein, total (07/19/2025 3:00 AM EDT) Only the most recent of3 resultswithin the time period is included. Total Protein 7.6 6.4 - 8.9 g/dL [facility] 07/19/2025 3:00 AM EDT 07/20/2025 12:17 PM EDT us Zeeshan Infante MD LAB BLOOD ORDERABLES Final Result Performing Organization Address [facility] Co de Phone Number [facility] [address] [place] [address] * Alkaline phosphatase (07/19/2025 3:00 AM EDT) Only the most recent of3 resultswithin the time period is included. Alkaline Phosphatase 92 46 - 116 U/L [facility] 07/19/2025 3:00 AM EDT 07/20/2025 12:17 PM EDT us Zeeshan Infante MD LAB BLOOD ORDERABLES Final Result Performing Organization Address [facility] de Phone Number [facility] [address] [place] [address] * PTH, Intact (07/19/2025 3:00 AM EDT) PTH, Intact 163 160 - 721 pg/mL [facility] Comment: Suggested (KDIGO) ESRD maintenance range is two to nine times the upper normal limit (80.1 pg/mL) for the laboratory. 07/19/2025 3:00 AM EDT 07/20/2025 12:17 PM EDT us Zeeshan Infante MD LAB BLOOD ORDERABLES Final Result Performing Organization Address [facility] Co de Phone Number [facility] [address] [place] [address] * Magnesium (07/19/2025 3:00 AM EDT) Only the most recent of3 resultswithin the time period is included. Magnesium 2.0 1.9 - 2.7 mg/dL [facility] 07/19/2025 3:00 AM EDT 07/20/2025 12:17 PM EDT us Zeeshan Infante MD LAB BLOOD ORDERABLES Final Result Performing Organization Address City/[facility]/ZIP Co de Phone Number [facility] [address] [place] [address] * Lactate dehydrogenase (07/19/2025 3:00 AM EDT) Only the most recent of3 resultswithin the time period is included. LDH 235 120 - 246 U/L [facility] 07/19/2025 3:00 AM EDT 07/20/2025 12:17 PM EDT us Zeeshan Infante MD LAB BLOOD ORDERABLES Final Result Performing Organization Address [facility] de Phone Number [facility] [address] [place] [address] * Hemoglobin A1c (07/19/2025 3:00 AM EDT) Hemoglobin A1C 5.4 <5.7 % [facility] Comment: Methodology: Enzymatic Normal: <5.7% Prediabetes: 5.7-6.4% Diabetes: >6.4% Diabetic Glucose Control Evaluation: Therapeutic action suggested at >8.0% ADA recommends a glycemic goal of <7.0% 07/19/2025 3:00 AM EDT 07/20/2025 12:16 PM EDT us Zeeshan Infante MD LAB BLOOD ORDERABLES Final Result Performing Organization Address [facility] Co de Phone Number [facility] [address] [place] [address] * (ABNORMAL) Glucose, random (07/19/2025 3:00 AM EDT) Only the most recent of3 resultswithin the time period is included. Glucose 124(H) 70 - 99 mg/dL [facility] Comment: ADA guidelines outline the following fasting glucose ranges: Normal: <100 Prediabetes: 100-125 Diabetes: >125 07/19/2025 3:00 AM EDT 07/20/2025 12:17 PM EDT us Zeeshan Infante MD LAB BLOOD ORDERABLES Final Result Performing Organization Address [facility] Co de Phone Number [facility] [address] [place] [address] * (ABNORMAL) Ferritin (07/19/2025 3:00 AM EDT) Only the most recent of3 resultswithin the time period is included. Ferritin 988(H) 22 - 322 ng/mL [facility] 07/19/2025 3:00 AM EDT 07/20/2025 12:17 PM EDT us Zeeshan Infante MD LAB BLOOD ORDERABLES Final Result Performing Organization Address [facility] de Phone Number [facility] [address] [place] [address] * (ABNORMAL) Creatinine, serum (07/19/2025 3:00 AM EDT) Only the most recent of3 resultswithin the time period is included. Creatinine 6.69(H) 0.70 - 1.30 mg/dL [facility] 07/19/2025 3:00 AM EDT 07/20/2025 12:17 PM EDT us Zeeshan Infante MD LAB BLOOD ORDERABLES Final Result Performing Organization Address [facility] de Phone Number [facility] [address] [place] [address] * Bilirubin, total (07/19/2025 3:00 AM EDT) Only the most recent of3 resultswithin the time period is included. Total Bilirubin 0.4 0.3 - 1.2 mg/dL [facility] 07/19/2025 3:00 AM EDT 07/20/2025 12:17 PM EDT us Zeeshan Infante MD LAB BLOOD ORDERABLES Final Result Performing Organization Address City/[facility]/ZIP Co de Phone Number [facility] [address] [place] [address] * (ABNORMAL) Lipid panel (07/19/2025 3:00 AM EDT) Cholesterol 121 mg/dL [facility] Comment: Optimal: <200 Borderline: 200-239 High Risk: >239 Triglycerides 65 mg/dL [facility] Comment: Optimal: <150 Borderline: 150-200 High Risk: >200 HDL 54(L) mg/dL [facility] Comment: Optimal: >59 Borderline: 40-59 High Risk: <40 LDL-Calc 54 mg/dL [facility] Comment: Optimal: <100 Borderline: 100-159 High Risk: >159 VLDL Cholesterol Thien 13 mg/dL [facility] Comment: Optimal: <30 Borderline: 30-40 High Risk: >40 Chol/HDL Ratio 2.2 [facility] Comment: Optimal: <3.3 High Risk: >6.2 07/19/2025 3:00 AM EDT 07/20/2025 12:17 PM EDT us Zeeshan Infante MD LAB BLOOD ORDERABLES Final Result Performing Organization Address [facility] de Phone Number [facility] [address] [place] [address] * (ABNORMAL) Electrolyte panel (07/19/2025 3:00 AM EDT) Only the most recent of3 resultswithin the time period is included. Sodium 140 136 - 145 mEq/L [facility] Potassium 5.5(H) 3.4 - 5.0 mEq/L [facility] Chloride 96(L) 98 - 107 mEq/L [facility] Bicarbonate (CO2) 30 21 - 31 mEq/L [facility] Anion Gap 14 3 - 14 mEq/L [facility] 07/19/2025 3:00 AM EDT 07/20/2025 12:17 PM EDT Zeeshan Infante MD LAB BLOOD ORDERABLES Final Result Performing Organization Address [facility] Co de Phone Number [facility] [address] [place] [address] * (ABNORMAL) Hemoglobin (07/05/2025 3:00 AM EDT) Only the most recent of8 resultswithin the time period is included. Hgb 10.8(L) 13.7 - 17.5 g/dL [facility] Hemoglobin x 3 32.4(L) 41.1 - 52.5 g/dL [facility] 07/05/2025 3:00 AM EDT 07/06/2025 3:03 PM EDT Zeeshan Infante MD LAB BLOOD ORDERABLES Final Result Performing Organization Address [facility] de Phone Number [facility] [address] [place] [address] from Last 3 Months Insurance [place] Care Teams Senior National Account Manager Relationship Specialty Start Date End Date Delores Painter MD [address] PCP - General 10/28/20
--- OUTSIDE RECORDS SUMMARY | 2025-07-24 14:21 | XMS_ITS | Clinical Summary ---
Author Organization [employer] [facility] Address [address] [place] [address] Phone Care Team Providers Care Mail Teller Name Role Phone Unavailable Primary Care Provider [...] file Medical Devices Not on file Insurance [employer] [place] [place] [employer] [place], [place] [id number] Additional Source Comments The information contained in this document represents components of the legal health record. It is not the complete legal health record.[facility]
== END 2025-07-24 11:22 | disposition home or self-care (01) ==
LOC: HO.MMNH2L 11:21
PROVIDERS: Visit Provider Physician Assistant Medical
DX: N18.6 End stage renal disease (principal)
CPT/HCPCS: 36415; 80048; 85025

== ENCOUNTER 2025-07-31 08:06 | Outpatient (REF) | payer MEDICARE, MEDICAID, SELFPAY ==
[2025-07-31 08:12] LABS: MANUAL DIFF FLAG NO
--- OUTSIDE RECORDS SUMMARY | 2025-07-31 08:18 | XMS_ITS | Clinical Summary ---
Author Organization [employer] [facility] Address [address] [place] [address] Phone Care Team Providers Care It Network Engineer Name Role Phone Unavailable Primary Care Provider [...] file Medical Devices Not on file Insurance [facility] [place] [facility] [address] [place], [place] [id number] Additional Source Comments The information contained in this document represents components of the legal health record. It is not the complete legal health record.[facility]
--- OUTSIDE RECORDS SUMMARY | 2025-07-31 08:18 | XMS_ITS | Encounter Summary ---
Author Organization [facility] Address [address] [place] [address] Care Team Providers Care Fishing Rod Mechanic Name Role Phone Larissa Pérez MD Primary Care Provider [phone] Reason for Visit * Reason Onset Date Comments Pre-operative Clearance 07/12/2025 Encounter Details Date Type Department Care Team (Late st Contact Info) Description 07/12/2025 Telephone [facility] [address] [facility] [address] [place] [address] Kassy Tan MD [address] [place] [address] Social History Tobacco Use Types Packs/Day Years [...] EDT Received a Fax from Sofy at [facility] to schedule the patient for a pre-op appointment. I spoke with Sofy and scheduled for 07/20/25 with Randell. She will be calling back to provide the surgeons information. documented in this encounter Plan of Treatment Not on file documented as of this encounter Visit Diagnoses Not on filedocumented in this encounter Care Teams Fishing Rod Mechanic Relationship Specialty Start Date End Date Larissa Pérez MD [address] [place] [address] PCP - General 10/19/23 documented as of this encounter
--- OUTSIDE RECORDS SUMMARY | 2025-07-31 08:18 | XMS_ITS | Clinical Summary ---
Author Organization [facility] Address [address] [place] [address] Phone Care Team Providers Care Housekeeper Supervisor Name Role Phone Larissa Pérez MD Primary Care Provider [phone] Allergies No known active allergies Medications bumetanide (BUMEX) 2 mg tablet Take 1 tablet by mouth 2 times daily. 06/27/20 21 Active fluticasone propionate (FLONASE) 50 mcg/actuation nasal spray 1 [place] by Each Nare route 2 times daily. [...] Diagnosed Date Coronary artery disease invo lving miami coronary artery of miami heart 07/20/2025 Overview (07/20/2025): Unfortunately the patient [...] Orders: ECG 12 lead Paroxysmal atrial fibrillation ([facility], [facility] V28) 03/01/2025 Assessment & Plan (07/20/2025 2:38 [...] He has an AVEIR leadless pacemaker model [id number] which is MRI conditional. If he were to need an MRI and assuming this would be done through [facility], pre and post MRI scan steps would be followed with arrangements through the [facility] EP service. Sick sinus syndrome ([facility] V24, [facility] V28) 0 03/01/2025 Overview (07/20/2025): -status post leadless pacemaker-AVEIR leadless pacemaker model [id number] which is MRI conditional. Assessment & Plan (07/20/2025 2:38 PM EDT): Pacemaker in place MRI conditional. Denies any recent syncopal events. Assessment & Plan (03/01/2025 4:21 PM EDT): Status post leadless pacemaker for prolonged conversion pauses. Is set up and monitored via our device clinic. Internal carotid artery stenosis 02/27/2025 Atrial flutter ([facility] V24, [facility] V28) 2022 Overview (11/15/2024): Last Assessment & [...] fluid administration and monitoring overnight in the [facility] ER for hypotension. Will defer to his dialysis team for any adjustments to his antihypertensive medication or treatment with midodrine. Would hesitate to decrease beta alec dose given his propensity to afib with RVR when he does have parosysms. Prediabetes 06/26/2021 Encounters Date Type Department Care Team Description 07/20/2025 1:[address] [facility] [address] [place] [address] Randell Mcclain NP Paroxysmal atrial fibrillation ([facility] V24, [facility] V28) (Primary Dx); Sick sinus syndrome ([facility] V24, [facility] V28); Primary hypertension; Hyperlipidemia, unspecified hyperlipidemia type; Coronary artery disease involving miami coronary artery of miami heart, unspecified whether angina present 07/12/[address] [facility] [address] [place] [phone] Kassy Tan MD 05/29/[address] [facility] [address] [place] [address] Provider, Not In System from Last 3 Months Surgical History Surgery Date Site/Laterality Comments COLONOSCOPY 07/09/2017 PROCEDURE: HISTORICAL COLONOSCOPY OTHER SURGICAL HISTORY 2015 PROCEDURE: HISTORY OTHER; COMMENT: Creation of graft fistula for dialysis OTHER SURGICAL HISTORY PROCEDURE: [place] ABLATE L/R ATRIAL FIBRIL W/ISOLATED PULM VEIN Medical History Medical History Date Comments Cataract 06/26/2021 DX:Cataract Cutaneous neurofibroma DX:Cutane ous neurofibroma; COMMENT: isolated ESRD (end stage renal diseas e) ([facility] V24, [facility] V28) DX:ESRD (end stage renal dis ease) (HCC); COMMENT: follows with Dr. Hernandez Gout DX:Gout Poor dentition DX:Poor dentitio n Prediabetes DX:Prediabetes Type 2 diabetes mellitus ([facility] V24, [facility] V28) DX:Type 2 diabetes mellitus (HCC) Right shoulder pain Hypertension Hyperlipidemia Cardiac resynchronization th erapy pacemaker ([employer]-P) in place Vision loss of left eye [...] RSV Immunization Adult Patients (1 - Risk 50-74 years 1-dose series) 2009 Hepatitis C Screening 09/15/2022 Medicare Annual Wellness [...] this topic Medical Devices Implanted Type Area Printed Circuit Designer Device Identifier Shelf Expiration Date Model / Serial / Lot Abbt-Stju Aveir Vr Lp [id number] Cardiac Pacemaker [employer] AVEIR VR LP [id number] / [id number] / Procedures Procedure Name Priority Date/Time Associated [...] Insurance MEDICARE [place]ICAID [place] Care Teams Housekeeper Supervisor Relationship Specialty Start Date End Date Larissa Pérez MD [address] [place] [address] PCP - General 10/19/23
[2025-07-31 08:21] LABS: Hematocrit 32.6 % (42.0-52.0); Hemoglobin 10.2 g/dl (14.0-18.0); Imm Gran Abs Auto 0.01 X10*3/uL (0.00-0.03); Imm Gran Pct Auto 0.1 % (0.0-0.4); Lymphocytes Absolute Auto 1.1 X10*3/uL (1.2-4.9); Mean Corpuscular HGB Conc 31.3 g/dl (31.0-36.0); Mean Corpuscular Hemoglobin 29.7 pg (27.0-33.0); Mean Corpuscular Volume 95.0 fL (80.0-98.0); NRBC Abs Auto 0.000 X10*3/uL (0.0-0.012); NRBC Pct Auto 0.0 /100WBC (0.0-0.2); Platelet Count 105 X10*3/uL (160-400); Red Blood Count 3.43 X10*6/uL (4.60-5.80); White Blood Count 7.0 X10*3/uL (4.8-10.8)
[2025-07-31 08:32] LABS: Anion Gap 16 (12-20); Blood Urea Nitrogen 58 mg/dL (9-16); Calcium 9.6 mg/dL (8.4-10.2); Carbon Dioxide 27 mmol/L (22-29); Chloride 100 mmol/L (96-108); Estimated Glomerular Filt Rate 8; Potassium 6.0 mmol/L (3.3-5.1); Sodium 137 mmol/L (135-145)
== END 2025-07-31 08:07 | disposition home or self-care (01) ==
LOC: HO.MMNH2L 08:06
PROVIDERS: Visit Provider Student in an Organized Health Care Education/Training Program
DX: N18.6 End stage renal disease (principal)
CPT/HCPCS: 36415; 80048; 85025

== ENCOUNTER 2025-08-14 09:24 | Outpatient (REF) | payer MEDICARE, MEDICAID, SELFPAY ==
[2025-08-14 09:25] LABS: MANUAL DIFF FLAG NO
[2025-08-14 09:30] LABS: Hematocrit 30.0 % (42.0-52.0); Hemoglobin 9.4 g/dl (14.0-18.0); Imm Gran Abs Auto 0.02 X10*3/uL (0.00-0.03); Imm Gran Pct Auto 0.4 % (0.0-0.4); Lymphocytes Absolute Auto 0.8 X10*3/uL (1.2-4.9); Mean Corpuscular HGB Conc 31.3 g/dl (31.0-36.0); Mean Corpuscular Hemoglobin 30.2 pg (27.0-33.0); Mean Corpuscular Volume 96.5 fL (80.0-98.0); NRBC Abs Auto 0.000 X10*3/uL (0.0-0.012); NRBC Pct Auto 0.0 /100WBC (0.0-0.2); Platelet Count 107 X10*3/uL (160-400); Red Blood Count 3.11 X10*6/uL (4.60-5.80); White Blood Count 5.6 X10*3/uL (4.8-10.8)
[2025-08-14 10:17] LABS: Anion Gap 17 (12-20); Blood Urea Nitrogen 50 mg/dL (9-16); Calcium 9.1 mg/dL (8.4-10.2); Carbon Dioxide 26 mmol/L (22-29); Chloride 100 mmol/L (96-108); Estimated Glomerular Filt Rate 8; Potassium 5.7 mmol/L (3.3-5.1); Sodium 137 mmol/L (135-145)
--- OUTSIDE RECORDS SUMMARY | 2025-08-14 10:40 | XMS_ITS | Encounter Summary ---
Author Organization [facility] Address [address] [place] [phone] Phone Care Team Providers Care Parent Trainer Name Role Phone Delores Painter MD Primary Care Provider + [phone] Encounter Details Date Type Department Care Team (Late st Contact Info) Description 08/09/2025 Treatment [facility] [address] [address] Cherrie Infante MD [address] [address] End stage renal disease; Dependence [...] Dialysis Note - Cherrie Infante MD - 08/09/2025 12:00 AM EDT BASIC NOTE Patient: Alton Thornton : 1960 Note Author: CHERRIE INFANTE MD Service Date: 08/09/2025 This patient was personally seen [id number] for a basic visit as part of routine monthly dialysis care for end stage renal disease. Attending Ground Support Equipment Assembler: CHERRIE INFANTE MD Dialysis Location: [facility] Schedule: Shift: 1 HOME MEDICATIONS Current [facility] Outpatient Medications [...] Allergies Allergen: No Known Allergies ADEQUACY ASSESSMENT Kt/V, Natural Log 1.70 (07/19/25) 1.50 (06/26/25) See Comment (06/21/25) UREA REDUCTION RATIO (%) 77 (07/19/25) 72 (06/26/25) ?95 (06/21/25) BUN 35 (07/19/25) 58 (06/26/25) 44 (06/21/25) BUN Post Dialysis 8 (07/19/25) 16 (06/26/25) ?2 (06/21/25) Creatinine 6.69 (07/19/25) 5.36 (06/21/25) 6.47 (05/24/25) Bicarbonate (CO2) 30 (07/19/25) 27 (06/21/25) 28 (05/24/25) Sodium 140 (07/19/25) 137 (06/21/25) 135 (05/24/25) ANEMIA ASSESSMENT Hgb 10.3 (08/02/25) 10.4 (07/19/25) 10.8 (07/05/25) Iron Saturation (TSat) 19 (07/19/25) 23 (06/21/25) 15 (05/24/25) Ferritin 988 (07/19/25) 1,274 (06/21/25) 1,151 (05/24/25) Iron 40 (07/19/25) 50 (06/21/25) 26 (05/24/25) TIBC 207 (07/19/25) 213 (06/21/25) 175 (05/24/25) MCV 96.8 (07/19/25) 96.0 (06/21/25) 95.7 (05/24/25) Platelets 128 (07/19/25) 94 (06/21/25) 199 (05/24/25) BMM ASSESSMENT Calcium, Adjusted Total 9.9 07/19/25 9.9 06/21/25 9.8 05/24/25 Calcium 9.9 07/19/25 9.8 06/21/25 9.6 05/24/25 Phosphorus, Serum 3.6 07/19/25 4.2 06/21/25 5.0 05/24/25 Ca*PO4 35.6 07/19/25 41.2 06/21/25 48.0 05/24/25 PTH, Intact 163 07/19/25 150 04/21/25 47 01/18/25 Magnesium 2.0 07/19/25 2.1 06/21/25 2.4 05/24/25 Alkaline Phosphatase 92 07/19/25 89 06/21/25 85 05/24/25 NUTRITION ASSESSMENT Albumin 4.0 07/19/25 3.9 06/21/25 3.7 05/24/25 Potassium 5.5 07/19/25 5.4 06/21/25 5.3 05/24/25 Hemoglobin A1C 5.4 07/19/25 4.9 04/21/25 4.6 01/18/25 ADDITIONAL LABS White Blood Cells 7.1 (07/19/25) 7.8 (06/21/25) 7.9 (05/24/25) Cholesterol 121 (07/19/25) 122 (04/21/25) 137 (01/18/25) HDL 54 (07/19/25) 51 (04/21/25) 52 (01/18/25) LDL-Calc 54 (07/19/25) 55 (04/21/25) 67 (01/18/25) Triglycerides 65 (07/19/25) 81 (04/21/25) 90 (01/18/25) ALT (SGPT) 9 (07/19/25) 21 (06/21/25) 13 (05/24/25) AST (SGOT) 10 (07/19/25) 15 (06/21/25) 14 (05/24/25) Signed by: CHERRIE INFANTE MD on 08/10/2025 at 07:28:54 PM Transcribed by: CHERRIE INFANTE MD on 08/10/2025 at 07:28:54 PM documented in this encounter Plan of Treatment Upcoming Encounters Date Type Department Care Team (Late st Contact Info) Description 12/14/2025 12:30 PM EST Scheduled Only [facility] - Vascular Access Center [address] [place] [address] [place] [phone] documented as of this encounter Visit Diagnoses Diagnosis End stage renal disease Dependence on renal dialysis documented in this encounter Care Teams Parent Trainer Relationship Specialty Start Date End Date Delores Painter MD [address] PCP - General 10/28/20 documented as of this encounter
--- OUTSIDE RECORDS SUMMARY | 2025-08-14 10:40 | XMS_ITS | Clinical Summary ---
Author Organization [facility] Address [address] [place] [phone] Phone Care Team Providers Care Nurse Healthcare Manager Name Role Phone Delores Painter MD Primary Care Provider [phone] Allergies No known active allergies Medications Velphoro [...] Encounters Date Type Department Care Team Description 08/09/2025 Treatment [facility] [address] [place] [phone] Zeeshan Infante MD End stage renal disease; Dependence on renal dialysis 08/04/2025 Treatment [facility] [address] [phone] Zeeshan Infante MD End stage renal disease; Dependence on renal dialysis 07/26/2025 Treatment [facility] [address] [phone] Zeeshan Infante MD End stage renal disease; Dependence on renal dialysis 07/21/2025 Treatment [facility] [address] [phone] Zeeshan Infante MD End stage renal disease; Dependence on renal dialysis 07/14/2025 Treatment [facility] [address] [phone] Zeeshan Infante MD End stage renal disease; Dependence on renal dialysis 07/07/2025 Treatment [facility] [address] [phone] Zeeshan Infante MD End stage renal disease; Dependence on renal dialysis 06/30/2025 Treatment [facility] [address] [phone] Zeeshan Infante MD End stage renal disease; Dependence on renal dialysis 06/29/2025 10:30 AM EDT Office Visit [facility] Vascular Access Center [address] [place] [address] [place] [address] Vimal Madrid MD Left inguinal hernia (Primary Dx); End stage renal disease (HCC) 06/21/2025 Treatment [facility] [address] [phone] Zeeshan Infante MD End stage renal disease; Dependence on renal dialysis 06/16/2025 Treatment [facility] [address] [phone] Zeeshan Infante MD End stage renal disease; Dependence on renal dialysis 06/15/2025 10:00 AM EDT Office Visit [facility] Vascular Access Center [address] [place] [address] Osmel Matson MD End stage renal disease (HCC) (Primary Dx) 06/13/2025 Telephone [facility] V[facility] Center [address] [place] [address] Jennifer Suarez 06/12/2025 Treatment [facility] [address] [phone] Zeeshan Infante MD End stage renal disease; Dependence on renal dialysis 06/07/2025 [facility] in Dialysis Clinic [facility] [address] [phone] Zeeshan Infante MD 06/07/2025 Treatment [facility] [address] [phone] Zeeshan Infante MD End stage renal disease; Dependence on renal dialysis 05/22/2025 Treatment [facility] [address] [phone] Zeeshan Infante MD End stage renal disease; Dependence on renal dialysis 05/15/2025 Treatment [facility] [address] [phone] Zeeshan Infante MD End stage renal disease; [...] Only [facility] - [facility] Center [address] [place] [address] [place] [address] Health Maintenance Due Date Last [...] Priority Date/Time Associated Diagnosis Comments HEMOGLOBIN Routine 08/02/2025 3:00 AM EDT HEMOGLOBIN A1C Routine 07/19/2025 3:00 AM EDT [...] EDT HEMOGLOBIN Routine 05/17/2025 3:00 AM EDT from Last 3 Months Results * (ABNORMAL) Hemoglobin (08/02/2025 3:00 AM EDT) Only the most recent of4 resultswithin the time period is included. [facility] Signature Hgb 10.3(L) 13.7 - 17.5 g/dL [facility] Hemoglobin x 3 30.9(L) 41.1 - 52.5 g/dL [facility] 08/02/2025 3:00 AM EDT 08/03/2025 12:17 PM EDT us Zeeshan Infante MD LAB BLOOD ORDERABLES Final Result Performing Organization Address [facility] Co de Phone Number APS [facility] [address] [place] [address] * LIH (07/19/2025 3:00 AM EDT) Only the most recent of4 resultswithin the time period is included. Lipemia Normal Normal [facility] Icterus Normal Normal [facility] Hemolysis Normal Normal [facility] 07/19/2025 3:00 AM EDT 07/20/2025 12:17 PM EDT Zeeshan Infante MD LAB HISTORICA [id number] RESULTS Final Result Performing Organization Address [facility] de Phone Number [facility] [address] [place] [address] * (ABNORMAL) Kt/V Natural Log, URR (07/19/2025 [...] EDT us Zeeshan Infante MD LAB HISTORICA [id number] RESULTS Final Result Performing Organization Address [facility] Co de Phone Number [facility] [address] [place] [address] * Calcium Phosphorus Product, Adjusted (07/19/2025 3:00 [...] EDT us Zeeshan Infante MD LAB HISTORICA [id number] RESULTS Final Result Performing Organization Address [facility] de Phone Number [facility] [address] [place] [address] * Hepatitis B Surface Ag w/Reflex Confirmation (07/19/2025 3:00 AM EDT) Only the most recent of3 resultswithin the time period is included. Hep B Surface Antigen Negative Negative [facility] 07/19/2025 3:00 AM EDT 07/20/2025 12:17 PM EDT us Zeeshan Infante MD LAB BLOOD ORDERABLES Final Result Performing Organization Address [facility] de Phone Number [facility] [address] [place] [address] * BUN/CREATININE RATIO (07/19/2025 3:00 AM EDT) Only the most recent of3 resultswithin the time period is included. BUN/Creatinine Ratio 5.2 <=23.0 [facility] 07/19/2025 3:00 AM EDT 07/20/2025 12:17 PM EDT Zeeshan Infante MD LAB HISTORICA [id number] RESULTS Final Result Performing Organization Address [facility] de Phone Number [facility] [address] [place] [address] * (ABNORMAL) TSAT (07/19/2025 3:00 AM EDT) Only the most recent of3 resultswithin the time period is included. Pathologist [facility] Iron 40(L) 65 - 175 ug/dL [facility] Transferrin 148(L) 215 - 365 mg/dL [facility] TIBC 207(L) 211 - 406 ug/dL [facility] Iron Saturation (TSat) 19(L) 22 - 52 % [facility] 07/19/2025 3:00 AM EDT 07/20/2025 12:17 PM EDT Zeeshan Infante MD LAB BLOOD ORDERABLES Final Result Performing Organization Address [facility] de Phone Number [facility] [address] [place] [address] * (ABNORMAL) CBC and Differential (07/19/2025 3:00 [...] BLOOD ORDERABLES Final Result Performing Organization Address City/[facility]/ZIP Co de Phone Number [facility] [address] [place] [address] * (ABNORMAL) ALT (07/19/2025 3:00 AM EDT) Only the most recent of3 resultswithin the time period is included. ALT (SGPT) 9(L) 10 - 49 U/L [facility] 07/19/2025 3:00 AM EDT 07/20/2025 12:17 PM EDT Zeeshan Infante MD LAB BLOOD ORDERABLES Final Result Performing Organization Address City/[facility]/ZIP Co de Phone Number [facility] [address] [place] [address] * AST (07/19/2025 3:00 AM EDT) Only the most recent of3 resultswithin the time period is included. AST (SGOT) 10 <34 U/L [facility] 07/19/2025 3:00 AM EDT 07/20/2025 12:17 PM EDT us Zeeshan Infante MD LAB BLOOD ORDERABLES Final Result Performing Organization Address [facility] Co de Phone Number [facility] [address] [place] [address] * Protein, total (07/19/2025 3:00 AM EDT) Only the most recent of3 resultswithin the time period is included. Total Protein 7.6 6.4 - 8.9 g/dL [facility] 07/19/2025 3:00 AM EDT 07/20/2025 12:17 PM EDT us Zeeshan Infante MD LAB BLOOD ORDERABLES Final Result Performing Organization Address [facility] de Phone Number [facility] [address] [place] [address] * Alkaline phosphatase (07/19/2025 3:00 AM EDT) Only the most recent of3 resultswithin the time period is included. Alkaline Phosphatase 92 46 - 116 U/L [facility] 07/19/2025 3:00 AM EDT 07/20/2025 12:17 PM EDT us Zeeshan Infante MD LAB BLOOD ORDERABLES Final Result Performing Organization Address [facility] de Phone Number [facility] [address] [place] [address] * PTH, Intact (07/19/2025 3:00 AM EDT) PTH, Intact 163 160 - 721 pg/mL [facility] Comment: Suggested (KDIGO) ESRD maintenance range is two to nine times the upper normal limit (80.1 pg/mL) for the laboratory. 07/19/2025 3:00 AM EDT 07/20/2025 12:17 PM EDT us Zeeshan Infante MD LAB BLOOD ORDERABLES Final Result Performing Organization Address City/[facility]/ZIP Co de Phone Number [facility] [address] [place] [address] * Magnesium (07/19/2025 3:00 AM EDT) Only the most recent of3 resultswithin the time period is included. Magnesium 2.0 1.9 - 2.7 mg/dL [facility] 07/19/2025 3:00 AM EDT 07/20/2025 12:17 PM EDT us Zeeshan Infante MD LAB BLOOD ORDERABLES Final Result Performing Organization Address [facility] de Phone Number [facility] [address] [place] [address] * Lactate dehydrogenase (07/19/2025 3:00 AM EDT) Only the most recent of3 resultswithin the time period is included. LDH 235 120 - 246 U/L [facility] 07/19/2025 3:00 AM EDT 07/20/2025 12:17 PM EDT us Zeeshan Infante MD LAB BLOOD ORDERABLES Final Result Performing Organization Address [facility] de Phone Number [facility] [address] [place] [address] * Hemoglobin A1c (07/19/2025 3:00 AM EDT) Hemoglobin A1C 5.4 <5.7 % [facility] Comment: Methodology: Enzymatic Normal: <5.7% Prediabetes: 5.7-6.4% Diabetes: >6.4% Diabetic Glucose Control Evaluation: Therapeutic action suggested at >8.0% ADA recommends a glycemic goal of <7.0% 07/19/2025 3:00 AM EDT 07/20/2025 12:16 PM EDT us Zeeshan Infante MD LAB BLOOD ORDERABLES Final Result Performing Organization Address [facility] Co de Phone Number [facility] [address] [place] [address] * (ABNORMAL) Glucose, random (07/19/2025 3:00 AM EDT) Only the most recent of3 resultswithin the time period is included. Glucose 124(H) 70 - 99 mg/dL [facility] Comment: ADA guidelines outline the following fasting glucose ranges: Normal: <100 Prediabetes: 100-125 Diabetes: >125 07/19/2025 3:00 AM EDT 07/20/2025 12:17 PM EDT us Zeeshan Infante MD LAB BLOOD ORDERABLES Final Result Performing Organization Address [facility] de Phone Number [facility] [address] [place] [address] * (ABNORMAL) Ferritin (07/19/2025 3:00 AM EDT) Only the most recent of3 resultswithin the time period is included. Ferritin 988(H) 22 - 322 ng/mL [facility] 07/19/2025 3:00 AM EDT 07/20/2025 12:17 PM EDT us Zeeshan Infante MD LAB BLOOD ORDERABLES Final Result Performing Organization Address [facility] de Phone Number [facility] [address] [place] [address] * (ABNORMAL) Creatinine, serum (07/19/2025 3:00 AM EDT) Only the most recent of3 resultswithin the time period is included. Creatinine 6.69(H) 0.70 - 1.30 mg/dL [facility] 07/19/2025 3:00 AM EDT 07/20/2025 12:17 PM EDT us Zeeshan Infante MD LAB BLOOD ORDERABLES Final Result Performing Organization Address [facility] Co de Phone Number [facility] [address] [place] [address] * Bilirubin, total (07/19/2025 3:00 AM EDT) Only the most recent of3 resultswithin the time period is included. Total Bilirubin 0.4 0.3 - 1.2 mg/dL [facility] 07/19/2025 3:00 AM EDT 07/20/2025 12:17 PM EDT us Zeeshan Infante MD LAB BLOOD ORDERABLES Final Result Performing Organization Address [facility] de Phone Number [facility] [address] [place] [address] * (ABNORMAL) Lipid panel (07/19/2025 3:00 AM [...] Final Result Performing Organization Address [facility] Co de Phone Number [facility] [address] [place] [address] * (ABNORMAL) Electrolyte panel (07/19/2025 3:00 AM [...] ORDERABLES Final Result [facility] [address] [place] [address] from Last 3 Months Insurance [place] Medicare Medicare [place] Care Teams Nurse Healthcare Manager Relationship Specialty Start Date End Date Delores Painter MD [address] PCP - General 10/28/20
--- OUTSIDE RECORDS SUMMARY | 2025-08-14 10:40 | XMS_ITS | Encounter Summary ---
Author Organization [facility] Address [address] [place] [phone] Phone Care Team Providers Care Tire Repair Mechanic Name Role Phone Delores Painter MD Primary Care Provider + [phone] Encounter Details Date Type Department Care Team (Late st Contact Info) Description 06/07/2025 TCM in Dialysis Clinic [facility] [address] [phone] Cherrie Infante MD [address] [phone] Social History Tobacco Use Types [...] 06/07/2025 The patient was seen for a [id number] visit as part of Transitional Care Management services. Attending Microsoft Dynamics Manager Architect: CHERRIE INFANTE MD Dialysis Location: [facility] Schedule: Shift: 1 INTERACTIVE CONTACT Contact [...] with the patient. VISIT DIAGNOSES CPT Code 82856 - High complexity, seen 8-14 days post discharge or moderate complexity, seen [id number] days of discharge. N18.6 End stage renal disease Signed by: CHERRIE INFANTE MD on 06/08/2025 at 05:18:40 AM Transcribed by: CHERRIE INFANTE MD on 06/08/2025 at 05:18:40 AM documented in this encounter Plan of Treatment Upcoming Encounters Date Type Department Care Team (Late st Contact Info) Description 12/14/2025 12:30 PM EST Scheduled Only [facility] - Vascular Access Center [address] [address] documented as of this encounter Visit Diagnoses Not on filedocumented in this encounter Care Teams Tire Repair Mechanic Relationship Specialty Start Date End Date Delores Painter MD [address] PCP - General 10/28/20 documented as of this encounter
--- OUTSIDE RECORDS SUMMARY | 2025-08-14 10:40 | XMS_ITS | Encounter Summary ---
Author Organization [facility] Address [address] [place] [address] Care Team Providers Care Precinct Police Captain Name Role Phone Larissa Pérez MD Primary Care Provider [phone] Reason for Visit * Reason Onset Date Comments Pre-operative Clearance 07/12/2025 Encounter Details Date Type Department Care Team (Late st Contact Info) Description 07/12/2025 Telephone [facility] [address] [facility] [address] [place] [phone] Kassy Tan MD [address] [place] [address] [place] [id number] Social History Tobacco Use Types Packs/Day Years [...] a Fax from Sofy at [facility] to schedule the patient for a pre-op appointment. I spoke with Sofy and scheduled for 07/20/25 with Randell. She will be calling back to provide the surgeons information. documented in this encounter Plan of Treatment Not on file documented as of this encounter Visit Diagnoses Not on filedocumented in this encounter Care Teams Precinct Police Captain Relationship Specialty Start Date End Date Larissa Pérez MD [address] [place] [address] PCP - General 10/19/23 documented as of this encounter
--- OUTSIDE RECORDS SUMMARY | 2025-08-14 10:40 | XMS_ITS | Clinical Summary ---
Author Organization [facility] Address [address] [place] [address] Phone Care Team Providers Care Aluminum Molding Machine Operator Name Role Phone Larissa Pérez MD Primary Care Provider [phone] Allergies No known active allergies Medications bumetanide (BUMEX) 2 mg tablet Take 1 tablet by mouth 2 times daily. 06/27/20 21 Active fluticasone propionate (FLONASE) 50 mcg/actuation nasal spray 1 [place] by Each Nare route 2 times daily. [...] Diagnosed Date Coronary artery disease invo lving mechoopda coronary artery of mechoopda heart 07/20/2025 Overview (07/20/2025): Unfortunately the patient [...] Orders: ECG 12 lead Paroxysmal atrial fibrillation ([facility] V24, [facility] V28) 03/01/2025 Assessment & [...] He has an AVEIR leadless pacemaker model [id number] which is MRI conditional. If he were to need an MRI and assuming this would be done through [facility], pre and post MRI scan steps would be followed with arrangements through the [facility] EP service. Sick sinus syndrome ([facility] V24, [facility] V28) 0 03/01/2025 Overview (07/20/2025): -status post leadless pacemaker-AVEIR leadless pacemaker model [id number] which is MRI conditional. Assessment & Plan (07/20/2025 2:38 PM EDT): Pacemaker in place MRI conditional. Denies any recent syncopal events. Assessment & Plan (03/01/2025 4:21 PM EDT): Status post leadless pacemaker for prolonged conversion pauses. Is set up and monitored via our device clinic. Internal carotid artery stenosis 02/27/2025 Atrial flutter ([facility] V24, [facility] V28) [...] fluid administration and monitoring overnight in the [facility] ER for hypotension. Will defer to his dialysis team for any adjustments to his antihypertensive medication or treatment with midodrine. Would hesitate to decrease beta alec dose given his propensity to afib with RVR when he does have parosysms. Prediabetes 06/26/2021 Encounters Date Type Department Care Team Description 07/20/2025 1:40 PM EDT Consult [facility] Cardiology [facility] [address] [place] [address] Randell Mcclain NP Paroxysmal atrial fibrillation ([facility] V24, [facility] V28) (Primary Dx); Sick sinus syndrome ([facility] V24, [facility] V28); Primary hypertension; Hyperlipidemia, unspecified hyperlipidemia type; Coronary artery disease involving mechoopda coronary artery of mechoopda heart, unspecified whether angina present 07/12/2025 Telephone [facility] - [address] [place] [phone] Kassy Tan MD 05/29/2025 Telephone [facility]iology [facility] [address] [place] [address] Provider, Not In System from Last 3 Months Surgical History Surgery Date Site/Laterality Comments COLONOSCOPY 07/09/2017 PROCEDURE: HISTORICAL COLONOSCOPY OTHER SURGICAL HISTORY 2015 PROCEDURE: HISTORY OTHER; COMMENT: Creation of graft fistula for dialysis OTHER SURGICAL HISTORY PROCEDURE: KS ABLATE L/R ATRIAL FIBRIL W/ISOLATED PULM VEIN Medical History Medical History Date Comments Cataract 06/26/2021 DX:Cataract Cutaneous neurofibroma DX:Cutane ous neurofibroma; COMMENT: isolated ESRD (end stage renal diseas e) (CMS/HCC V24, [facility] V28) DX:ESRD (end stage renal dis ease) (HCC); COMMENT: follows with Dr. Hernandez Gout DX:Gout Poor dentition DX:Poor dentitio n Prediabetes DX:Prediabetes Type 2 diabetes mellitus ([facility] V24, [facility] V28) DX:Type 2 diabetes mellitus (HCC) Right shoulder pain Hypertension Hyperlipidemia Cardiac resynchronization th erapy pacemaker (SENIOR POLICY ADVISOR-P) in place Vision loss of left eye [...] this topic Medical Devices Implanted Type Area Loan Review Officer Device Identifier Shelf Expiration Date Model / Serial / Lot Abbt-Stju Aveir Vr Lp [id number] Cardiac Pacemaker [employer] A[employer]IR [employer] [id number] / [id number] / Procedures Procedure Name Priority Date/Time Associated [...] Insurance MEDICARE [place]ICAID [place] Care Teams Aluminum Molding Machine Operator Relationship Specialty Start Date End Date Larissa Pérez MD [address] [place] [address] PCP - General 10/19/23
--- OUTSIDE RECORDS SUMMARY | 2025-08-14 10:40 | XMS_ITS | Clinical Summary ---
Author Organization [facility] Address [address] [place] [id number] Phone Care Team Providers Care Jd Edwards Consultant Name Role Phone Unavailable Primary Care Provider [...] file Medical Devices Not on file Insurance [facility] [place] [facility] [address] [place], [place] [id number] Additional Source Comments The information contained in this document represents components of the legal health record. It is not the complete legal health record.[facility]
== END 2025-08-14 09:25 | disposition home or self-care (01) ==
LOC: HO.MMNH2L 09:24
PROVIDERS: Visit Provider Student in an Organized Health Care Education/Training Program
DX: Z13.89 Encounter for screening for other disorder (principal)
CPT/HCPCS: 36415; 80048; 85025

== ENCOUNTER 2025-08-22 19:15 | Emergency (ER) | payer MEDICARE, MEDICAID, SELFPAY ==
[2025-08-22 19:26] VITALS: BP 152/91; BP 174/85; PULSE 108; PULSE 86; RESP 16; TEMP 37.2; O2SAT 94; O2SAT 98; BMI 20.9
--- NOTE | 2025-08-22 20:10 | ED.DENTAL ---
HPI - Dental/Oral General Chief complaint: Dental/Oral Stated complaint: MOUTH PAIN Time Seen by Provider: 08/22/25 20:07 Source: patient and EMS Mode of arrival: EMS Limitations: no limitations History of Present Illness ED Provider: Alli WILSON HPI Narrative: The patient is a 65-year-old male with a history of ESRD on dialysis Wednesday, , and Wednesday, atrial fibrillation currently on Eliquis, G-tube, and currently living at a SNF, presenting to the ED for evaluation of persistent bleeding from the mouth status post extraction of 5 teeth 6 days ago on 08/16/2025. Extractions reportedly occurred at the SNF, bleeding was mild at 1st however has increased over time. The patient's facility attempted to contact the dentist to return and reassess, however dentist was not available and patient was sent to the ED for evaluation and management of his bleeding. Related Data Home Medications ?Medication ?Instructions ?Recorded ?Confirmed apixaban 2.5 mg tablet (Eliquis) 2.5 mg feeding tube BID 11/14/24 11/14/24 bisacodyl 10 mg rectal suppository 10 mg NH BEDTIME 11/14/24 11/14/24 bisacodyl 10 mg rectal suppository 10 mg NH DAILY PRN constipation if 11/14/24 11/14/24 no result from MOM calcium carbonate 300 mg PO TIDWM 11/14/24 11/14/24 dextrose 40 % oral gel (Glucose 15 g PO Q15M PRN BS less than 60 11/14/24 11/14/24 Gel) and conscious diphenhydramine HCl 25 mg tablet 25 mg PO Q8H PRN itchiness 11/14/24 11/14/24 (Benadryl Allergy) docusate sodium 100 mg capsule 100 mg PO BID 11/14/24 11/14/24 fluticasone propionate 50 1 spray intranasal Q12H PRN 11/14/24 11/14/24 mcg/actuation nasal Congestion spray,suspension gabapentin 250 mg/5 mL (5 mL) oral 100 mg feeding tube TID 11/14/24 11/14/24 solution glucagon 1 mg solution for 1 mg subcut Q20M PRN BS less than 11/14/24 11/14/24 injection (Glucagon Emergency Kit) 60 and unconscious melatonin 3 mg tablet 6 mg PO BEDTIME 11/14/24 11/14/24 metoprolol tartrate 25 mg tablet 6.25 mg feeding tube BID 11/14/24 11/14/24 midodrine 5 mg tablet 5 mg feeding tube TID 11/14/24 11/14/24 multivitamin 1 tab feeding tube MOWEFR 11/14/24 11/14/24 oxycodone 5 mg/5 mL oral solution 5 mg PO Q4H PRN Severe Pain (Scale 11/14/24 11/14/24 Score 7-10) polyethylene glycol 3350 17 gram 17 g feeding tube DAILY 11/14/24 11/14/24 oral powder packet sennosides 8.6 mg tablet 17.2 mg feeding tube BEDTIME 11/14/24 11/14/24 tizanidine 2 mg tablet 2 mg PO TID 11/14/24 11/14/24 trazodone 50 mg tablet 50 mg feeding tube BEDTIME 11/14/24 11/14/24 Allergies Allergy/AdvReac Type Severity Reaction Status Date / Time No Known Allergies Allergy Unknown NOT Verified 08/22/25 19:37 APPLICABLE Review of Systems Review of Systems: Yes all other systems are reviewed and are negative PMFSH Social History Social History Smoked in Last 30 Days: No Use of substances other than those prescribed or required for medical reasons: No Advance Directives: No Advance Directives Information Provided: No Do you have a plan to hurt others: No Plan Physical Exam Vital Signs: Vital Signs: Last Vital Signs Temp 97.9 F 08/23/25 04:07 Pulse 105 H 08/23/25 04:07 Resp 18 08/23/25 04:07 BP 144/61 H 08/23/25 04:07 Pulse Ox 97 08/23/25 04:07 O2 Del Method Room Air 08/23/25 04:07 BMI result Body Mass Index 20.9 CONSTITUTIONAL: The patient appears non-toxic, well nourished and in no acute distress. Vital signs as documented. HEAD: Atraumatic, normocephalic. EYES: EOMs grossly intact, pupils equal, conjunctiva clear, no exudate. ENT: Nares patent, no discharge. Airway patent, no audible stridor. There is markedly poor dentition noted, with only the upper right canine remaining. Patient has evidence of surgical extraction of 2 left lower bicuspids and 3 right lower bicuspids, clots still appear to be in place in the sockets with significant capillary bleeding noted around all the clots, on both sides. NECK: trachea is midline, no obvious masses or gross abnormalities. CHEST: Symmetric movement, normal appearance. LUNGS: Non-labored work of breathing. CARDIAC: No evidence of hypoperfusion. ABDOMEN: Nondistended, no obvious injury. : Deferred. EXTREMITIES: Moves all extremities spontaneously without reported pain. No obvious injury or deformity noted. NEURO: Alert and oriented x3, CN II-XII appear grossly intact. Cerebellar Functioning grossly intact. Speech clear and appropriate. SKIN: Warm, dry, color appropriate. No rashes or lesions noted. Medications Administered Discontinued Medications Generic Name Dose Route Start Last Admin Trade Name Freq PRN Reason Stop Dose Admin Lidocaine/Epinephrine 20 ml 08/22/25 21:43 08/22/25 22:26 Lidocaine Hcl 2%/Epi 1:100,000 20 Ml Vial INFILTRATI 08/22/25 21:44 20 ml ONCE ONE Administration Morphine Sulfate 4 mg 08/23/25 02:30 08/23/25 02:38 Morphine Sulfate 4 Mg/Ml Cartridge IVPUSH 08/23/25 02:31 4 mg ONCE ONE Administration Protocol Tranexamic Acid 1,000 mg 08/22/25 22:27 08/22/25 22:29 Tranexamic Acid 1,000 Mg/10 Ml Vial IRRIGATION 08/22/25 22:28 1,000 mg ONCE ONE Administration Medical Decision Making Medical Decision Making MDM Narrative: 8:26 PM 08/22/2025 (Darleen WILSON): The patient is a 65-year-old male with a history of ESRD on dialysis Wednesday, , and Wednesday, atrial fibrillation currently on Eliquis, G-tube, and currently living at a SNF, presenting to the ED for evaluation of persistent bleeding from the mouth status post extraction of 5 teeth 6 days ago on 08/16/2025. Extractions reportedly occurred at the SNF, bleeding was mild at 1st however has increased over time. The patient's facility attempted to contact the dentist to return and reassess, however dentist was not available and patient was sent to the ED for evaluation and management of his bleeding. On exam the patient has markedly poor dentition, with only the upper right canine remaining. Patient has evidence of surgical extraction of 2 left lower bicuspids and 3 right lower bicuspids, clots still appear to be in place in the sockets with significant capillary bleeding noted around all the clots, on both sides. The patient does not appear to have any respiratory distress, is managing his airway. Patient's EKG demonstrates atrial fibrillation with a rate of 100, vital signs reveal no hypotension. The patient's bleeding will be treated with Surgicel and direct compression. 9:30 PM 08/22/2025 (Darleen WILSON): Patient's labs have resulted, renal function is at baseline, no significant drop in H&H. 10:35 PM 08/22/2025 (Darleen WILSON): The attempt to control bleeding with Surgicel and direct pressure was unsuccessful, patient has been seen by attending physician Dr. Luciano. At this time we will attempt injection of the gums with lidocaine with epi, and apply TXA soaked gauze and reassess. 11:33 PM 08/22/2025 (Darleen WILSON): Patient received injections of lidocaine with epinephrine on both sides, TXA soaked gauze was applied to the area. Patient is poorly compliant with the interventions, did not keep TXA gauze in place for recommended duration of time. Patient has continued bleeding, additional lidocaine with epinephrine has been injected. We will continue to monitor and reassess. 1:30 AM 08/23/2025 (Darleen WILSON): The patient has had continued bleeding despite additional lidocaine with epinephrine and additional attempts to provide direct pressure. The patient's bleeding has now increased, patient is becoming more tachycardic into the 120s. Additionally the patient just now vomited approximately 500 cc of maroon coffee-ground appearing emesis. An ultrasound-guided IV has been established, repeat CBC as well as a type and screen has been drawn and is pending. Pending significant drop in H&H, the patient may require intubation for airway control with a additional TXA soaked gauze and packing of the mouth to ensure adequate pressure. This potential intervention will be discussed with the patient. 1:50 AM 08/23/2025 (Darleen WILSON): The patient's repeat H&H has not significantly dropped. Patient continues to bleed. Prior to consideration of intubation, Dr. Moore was informed of the case, and placed two deep sutures in the area of the right mandible extraction sites. Bleeding appears to be slowing slightly. Following placement of sutures additional TXA soaked gauze was placed over the area with overlying pressure packing. We will leave this in place for as long as tolerated by the patient and reassess. 4:45 AM 08/23/2025 (Darleen WILSON): The patient's bleeding appears to have subsided following sutures and TXA. At this time patient is resting comfortably. The patient is due for his dialysis at 05:20, the patient receives his dialysis at the facility where he resides. The facility was contacted and advised the patient would be able to receive his dialysis as long as he arrived at the facility before 08:00. Admission/Observation Consideration of admission/observation: Escalation of care including admission/observation considered Lab Data MDM Lab Attestation statement: I reviewed the patient's lab results. 08/23/25 01:28 08/22/25 20:26 Labs: Lab Results 08/22/25 08/23/25 08/23/25 Range/Units 20:26 01:28 01:31 WBC 7.0 (4.8-10.8) X10*3/uL RBC 3.27 L (4.60-5.80) X10*6/uL Hgb 9.9 L 9.3 L (14.0-18.0) g/dl Hct 31.6 L 30.2 L (42.0-52.0) % MCV 96.6 (80.0-98.0) fL MCH 30.3 (27.0-33.0) pg MCHC 31.3 (31.0-36.0) g/dl RDW 15.3 (11.0-16.0) % Plt Count 179 D (160-400) X10*3/uL MPV 11.0 (9.4-12.4) fL Immature Gran % (Auto) 0.4 (0.0-0.4) % Neut % (Auto) 68.0 (45-73) % Lymph % (Auto) 16.6 L (20-40) % [place] % (Auto) 10.3 (2-11) % Eos % (Auto) 3.7 (0-4) % Baso % (Auto) 1.0 (0-2) % Lymph # (Auto) 1.2 (1.2-4.9) X10*3/uL [place] # (Auto) 0.7 (0.1-1.2) X10*3/uL Eos # (Auto) 0.3 (0.0-0.4) X10*3/uL Baso # (Auto) 0.1 (0.0-0.2) X10*3/uL Abs Immat Gran (auto) 0.03 (0.00-0.03) X10*3/uL Absolute Neuts (auto) 4.8 (2.0-8.3) x10*3/uL Absolute Nucleated RBC 0.000 (0.0-0.012) X10*3/uL Nucleated RBC % (auto) 0.0 (0.0-0.2) /100WBC PT 16.1 H (11.2-13.5) SEC INR 1.3 H (0.9-1.1) Sodium 141 (135-145) mmol/L Potassium 4.4 D (3.3-5.1) mmol/L Chloride 98 (96-108) mmol/L Carbon Dioxide 27 (22-29) mmol/L Anion Gap 20 (12-20) BUN 37 H (9-16) mg/dL Creatinine 5.80 H* (0.5-1.4) mg/dL Estim Creat Clear Calc 12.0 Estimated GFR 10 Random Glucose 130 H (60-115) mg/dL Calcium 9.7 D (8.4-10.2) mg/dL Total Bilirubin 0.6 (0.0-1.0) mg/dL AST 20 (5-37) U/L ALT 17 (0-40) U/L Alkaline Phosphatase 96 (39-117) U/L Total Protein 8.4 H (6.5-8.0) g/dL Albumin 4.1 (3.5-5.0) g/dL Blood Type A Positive Antibody Screen NEGATIVE Discharge Plan Discharge Clinical Impression: Surgical wound hemorrhage after dental procedure Patient Disposition: Home, Self-Care Instructions: Tooth Extraction (DC) Additional Instructions: Thank you for choosing [facility]'s Emergency Department for your care today. Your bleeding from your tooth extraction sites was quite significant, and took multiple interventions to subside. Thankfully we were able to eventually control the bleeding, and there is no significant drop in your blood counts. At this time there is no indication for admission to the hospital or continued ED observation, and it is safe to discharge you home. Your bleeding stopped after 2 sutures were placed, 1 in the area of your right lower canine, and another in the area of your right lower lateral incisor. These sutures are not dissolvable, and will require removal in 5-7 days. It is extremely important that you follow up with the your oral surgeon for additional management of any additional postoperative bleeding. Please do not smoke, use any straws, or drink warm liquids until cleared by your oral surgeon. Please do not take Eliquis this morning. You can re-initiate Eliquis this evening. Please take 1 g of Tylenol every 6 hours as needed for additional pain. Please continue monitoring for any recurrent bleeding and contact your oral surgeon if it occurs. Please continue taking all of the medications as prescribed. We are transporting you home in time for your dialysis treatment, please be sure to received your full dialysis treatment.. Please also follow up with your primary care physician for re-evaluation, additional management of your symptoms, and continued preventative care. If you do not have a primary care physician, please call the [facility] at [phone] to establish a new primary care physician. While waiting to establish your new primary care physician, you can call our Walk-in Care [facility] at [phone] for non-emergency needs. Please return to the emergency department if you develop a severe or sudden change in your symptoms, a fever over 100.4 that does not improve with Tylenol or Ibuprofen, recurrent vomiting, or any other new or worsening symptoms or concerns. Prescriptions: No Action multivitamin Tablet 1 tab feeding tube MOWEFR sennosides 8.6 mg Tablet 17.2 mg feeding tube BEDTIME tizanidine 2 mg Tablet 2 mg PO TID trazodone 50 mg Tablet 50 mg feeding tube BEDTIME polyethylene glycol 3350 17 gram Powder In Packet 17 g feeding tube DAILY dextrose [Glucose Gel] 40 % Gel 15 g PO Q15M PRN (Reason: BS less than 60 and conscious) Rx Instructions: until symptoms of low blood sugar are controlled midodrine 5 mg Tablet 5 mg feeding tube TID Rx Instructions: do not give last dose of day after 6PM or within 4 hrs of bedtime oxycodone 5 mg/5 mL Solution 5 mg PO Q4H PRN (Reason: Severe Pain (Scale Score 7-10)) calcium carbonate 300 mg (750 mg) Tablet,Chewable 300 mg PO TIDWM melatonin 3 mg Tablet 6 mg PO BEDTIME bisacodyl 10 mg Suppository 10 mg NH DAILY PRN (Reason: constipation if no result from MOM) bisacodyl 10 mg Suppository 10 mg NH BEDTIME diphenhydramine HCl [Benadryl Allergy] 25 mg Tablet 25 mg PO Q8H PRN (Reason: itchiness) docusate sodium 100 mg Capsule 100 mg PO BID Glucagon Emergency Kit (human) 1 mg Recon Soln 1 mg SUBCUT Q20M PRN (Reason: BS less than 60 and unconscious) Rx Instructions: until target blood sugar attained fluticasone propionate 50 mcg/actuation [place],Suspension 1 spray INTRANASAL Q12H PRN (Reason: Congestion) Rx Instructions: administer into each nostril metoprolol tartrate 25 mg Tablet 6.25 mg feeding tube BID gabapentin 250 mg/5 mL (5 mL) Solution 100 mg feeding tube TID Eliquis 2.5 mg Tablet 2.5 mg feeding tube BID Print Language: Thai
--- NOTE | 2025-08-22 20:12 | ECG_ITS ---
Test Reason : TACHYCARDIA Blood Pressure : */* mmHG Vent. Rate : 96 BPM Atrial Rate : 394 BPM P-R Int : * ms QRS Dur : 72 ms QT Int : 348 ms P-R-T Axes : 31 14 46 degrees QTcB Int : 439 ms Atrial fibrillation Nonspecific ST and T wave abnormality Abnormal ECG When compared with ECG of 14-Nov-2024 16:19, Atrial fibrillation Present Referred By: Alli Bar Electronically Signed By: Isai Cee
--- NOTE | 2025-08-22 20:25 | PC.NURSE ---
pt biba from [facility], a&ox4, respirations even and unlabored. pt is a dialysis patient, last had yesterday, fistula left arm. pt reports 6 tooth extractions on wednesday, and has uncontrollable bleeding since. pt is on elequis. 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 pt noted to have bright red blood and clots. pt moved in ed bed 10, suction set up. labs obtained. STEVE Bar aware and at bedside
--- NOTE | 2025-08-22 20:30 | ECG_ITS ---
Test Reason : TACHYCARDIA Blood Pressure : */* mmHG Vent. Rate : 100 BPM Atrial Rate : * BPM P-R Int : * ms QRS Dur : 86 ms QT Int : 354 ms P-R-T Axes : * 24 86 degrees QTcB Int : 456 ms Atrial fibrillation Abnormal ECG When compared with ECG of 22-Aug-2025 20:29, Non-specific change in ST segment in Lateral leads Referred By: David Pang Electronically Signed By: Isai Cee
[2025-08-22 20:31] LABS: MANUAL DIFF FLAG NO
[2025-08-22 20:33] LABS: Hematocrit 31.6 % (42.0-52.0); Hemoglobin 9.9 g/dl (14.0-18.0); Imm Gran Abs Auto 0.03 X10*3/uL (0.00-0.03); Imm Gran Pct Auto 0.4 % (0.0-0.4); Lymphocytes Absolute Auto 1.2 X10*3/uL (1.2-4.9); Mean Corpuscular HGB Conc 31.3 g/dl (31.0-36.0); Mean Corpuscular Hemoglobin 30.3 pg (27.0-33.0); Mean Corpuscular Volume 96.6 fL (80.0-98.0); NRBC Abs Auto 0.000 X10*3/uL (0.0-0.012); NRBC Pct Auto 0.0 /100WBC (0.0-0.2); Platelet Count 179 X10*3/uL (160-400); Red Blood Count 3.27 X10*6/uL (4.60-5.80); White Blood Count 7.0 X10*3/uL (4.8-10.8)
[2025-08-22 20:39] LABS: INTERNATIONAL NORM RATIO 1.3 (0.9-1.1); Prothrombin Time 16.1 SEC (11.2-13.5)
[2025-08-22 20:50] LABS: Alanine Aminotransferase 17 U/L (0-40); Albumin Level 4.1 g/dL (3.5-5.0); Alkaline Phosphatase 96 U/L (39-117); Anion Gap 20 (12-20); Aspartate Amino Transferase 20 U/L (5-37); Blood Urea Nitrogen 37 mg/dL (9-16); Calcium 9.7 mg/dL (8.4-10.2); Carbon Dioxide 27 mmol/L (22-29); Chloride 98 mmol/L (96-108); Creatinine Clr Calc Pharmacy 12.0; Estimated Glomerular Filt Rate 10; Potassium 4.4 mmol/L (3.3-5.1); Sodium 141 mmol/L (135-145); Total Protein 8.4 g/dL (6.5-8.0)
--- OUTSIDE RECORDS SUMMARY | 2025-08-22 21:00 | XMS_ITS | Clinical Summary ---
Author Organization [facility] Address [address] [place] [address] Phone Care Team Providers Care Youth Specialist Name Role Phone Larissa Pérez MD Primary Care Provider [phone] Allergies No known active allergies Medications bumetanide (BUMEX) 2 mg tablet Take 1 tablet by mouth 2 times daily. 1 Active fluticasone propionate (FLONASE) 50 mcg/actuation nasal spray 1 [place] by Each Nare route 2 times daily. [...] not crush or chew. 90 each 1 5 026 Active clopidogreL (PLAVIX) 75 mg tablet Take 1 tablet (75 mg total) by mouth 1 (one) time each day. 90 each 1 5 026 Active apixaban (ELIQUIS) 5 mg tablet Take 0.5 tablets (2.5 mg total) by mouth 2 (two) times a day. Active Active Problems Problem Noted Date Diagnosed Date Coronary artery disease invo lving [place] coronary artery of [place] heart 07/20/2025 Overview (07/20/2025): Unfortunately the patient [...] Orders: ECG 12 lead Paroxysmal atrial fibrillation (CMS/HCC V24, CMS /HCC V28) 03/01/2025 Assessment & Plan (07/20/2025 2:38 [...] He has an AVEIR leadless pacemaker model [id number] which is MRI conditional. If he were to need an MRI and assuming this would be done through [facility], pre and post MRI scan steps would be followed with arrangements through the [facility] EP service. Sick sinus syndrome (CMS/HCC V24, CMS/HCC V28) 0 03/01/2025 Overview (07/20/2025): -status post leadless pacemaker-AVEIR leadless pacemaker model [id number] which is MRI conditional. Assessment & Plan (07/20/2025 2:38 PM EDT): Pacemaker in place MRI conditional. Denies any recent syncopal events. Assessment & Plan (03/01/2025 4:21 PM EDT): Status post leadless pacemaker for prolonged conversion pauses. Is set up and monitored via our device clinic. Internal carotid artery stenosis 02/27/2025 Atrial flutter (CMS/HCC V24, CMS/HCC V28) 2022 [...] fluid administration and monitoring overnight in the [facility] ER for hypotension. Will defer to his dialysis team for any adjustments to his antihypertensive medication or treatment with midodrine. Would hesitate to decrease beta alec dose given his propensity to afib with RVR when he does have parosysms. Prediabetes 06/26/2021 Encounters Date Type Department Care Team Description 07/20/2025 1:40 PM EDT Consult [facility] - [address] [place] [address] Randell Mcclain NP Paroxysmal atrial fibrillation (CMS/HCC V24, CMS/HCC V28) (Primary Dx); Sick sinus syndrome (CMS/HCC V24, CMS/HCC V28); Primary hypertension; Hyperlipidemia, unspecified hyperlipidemia type; Coronary artery disease involving [place] coronary artery of [place] heart, unspecified whether angina present 07/12/2025 Telephone [facility] - [address] [place] [address] Kassy Tan MD 05/29/2025 Telephone [facility] - [facility] [address] [place] [address] Provider, Not In System from Last 3 Months Surgical History Surgery Date Site/Laterality Comments COLONOSCOPY 07/09/2017 PROCEDURE: HISTORICAL COLONOSCOPY OTHER SURGICAL HISTORY 2015 PROCEDURE: HISTORY OTHER; COMMENT: Creation of graft fistula for dialysis OTHER SURGICAL HISTORY PROCEDURE: [place] ABLATE L/R ATRIAL FIBRIL W/ISOLATED PULM VEIN Medical History Medical History Date Comments Cataract 06/26/2021 DX:Cataract Cutaneous neurofibroma DX:Cutane ous neurofibroma; COMMENT: isolated ESRD (end stage renal diseas e) ([facility]/HCC V24, [facility]/HCC V28) DX:ESRD (end stage renal dis ease) ([facility]); COMMENT: follows with Dr. Hernandez Gout DX:Gout Poor dentition DX:Poor dentitio n Prediabetes DX:Prediabetes Type 2 diabetes mellitus ( S/HCC V24, CMS/HCC V28) DX:Type 2 diabetes mellitus ([facility]) Right shoulder pain Hypertension Hyperlipidemia Cardiac resynchronization th erapy pacemaker (CLEANING MATRON-P) in place Vision loss of left eye [...] this topic Medical Devices Implanted Type Area Coremaker Apprentice Device Identifier Shelf Expiration Date Model / Serial / Lot Abbt-Stju Aveir Vr Lp [id number] Cardiac Pacemaker [employer] AVEIR VR LP [id number] / [id number] / Procedures Procedure Name Priority Date/Time Associated [...] Insurance MEDICARE [place]ICAID [place] Care Teams Youth Specialist Relationship Specialty Start Date End Date Larissa Pérez MD [address] [place] [address] PCP - General 10/19/23
--- OUTSIDE RECORDS SUMMARY | 2025-08-22 21:00 | XMS_ITS | Clinical Summary ---
Author Organization [facility] Address [address] [place] [address] Phone Care Team Providers Care Cotton Breeder Name Role Phone Unavailable Primary Care Provider [...] file Medical Devices Not on file Insurance [facility] [place] [facility] Q[address] [place], [place] [id number] Additional Source Comments The information contained in this document represents components of the legal health record. It is not the complete legal health record.[facility]
--- NOTE | 2025-08-22 21:22 | PC.NURSE ---
pt suctioned by STEVE Bar and packing placed at this time.
[2025-08-22 21:30] VITALS: BP 166/88; PULSE 100; RESP 19; TEMP 36.4; O2SAT 98
[2025-08-22] MEDS: Lidocaine HCl 2%/Epi 1:100,000 20 ML VIAL INFILTRATI (22:26)
[2025-08-22] MEDS: Tranexamic Acid 1,000 MG/10 ML VIAL 1000 MG IRRIGATION (22:29)
[2025-08-23 01:32] LABS: Hematocrit 30.2 % (42.0-52.0); Hemoglobin 9.3 g/dl (14.0-18.0)
[2025-08-23 01:37] VITALS: BP 176/89; PULSE 103; RESP 19; O2SAT 95
--- NOTE | 2025-08-23 01:37 | PC.NURSE ---
pt noted to have 500ml of bright red emesis at this time. STEVE Bar at bedside at this time, 20g US guided iv placed in right upper arm labs obtained and vss
--- NOTE | 2025-08-23 02:04 | PC.NURSE ---
md christianson at bedside, sutures placed into pt mouth at this time, pt tolerated well and gauze placed.
--- NOTE | 2025-08-23 02:31 | PC.NURSE ---
per STEVE Bar, place verbal order for 4mg IV Push morphine
[2025-08-23 02:38] VITALS: RESP 18
[2025-08-23 02:51] VITALS: BP 168/88; PULSE 98; RESP 18; O2SAT 98
[2025-08-23 04:07] VITALS: BP 144/61; PULSE 105; RESP 18; TEMP 36.6; O2SAT 97
--- NOTE | 2025-08-23 04:44 | PC.NURSE ---
gauze removed from pt mouth, STEVE Bar at bedside and bleeding controlled at this time.attempted to reach jarod lacy.
--- NOTE | 2025-08-23 04:55 | PC.NURSE ---
report given to Risa RIDLEY at [facility], transport to be booked.
--- NOTE | 2025-08-23 05:38 | PC.NURSE ---
ems at bedside for transport and report
[2025-08-23 05:44] VITALS: BP 144/61; PULSE 98; RESP 18; TEMP 36.6; O2SAT 97
== END 2025-08-23 05:45 | disposition home or self-care (01) ==
PROVIDERS: Physician Assistant; Emergency Provider Emergency Medicine
DX: K91.840 Postprocedural hemorrhage of a digestive system organ or structure following a digestive system procedure (principal); R00.0 Tachycardia, unspecified; I48.91 Unspecified atrial fibrillation; N18.6 End stage renal disease; Z99.2 Dependence on renal dialysis; Z79.01 Long term (current) use of anticoagulants
CPT/HCPCS: 36415; 80053; 85014; 85018; 85025; 85610; 86850; 86900; 86901; 93005; 96374; 99285; J2004; J2151; J2270

== ENCOUNTER → 2025-08-22 20:12 | Outpatient (BNV) | payer MEDICARE, MEDICAID, SELFPAY | PROVIDERS: Emergency Provider Emergency Medicine; Visit Provider Internal Medicine Cardiovascular Disease | DX: I48.91 Unspecified atrial fibrillation (principal) | CPT/HCPCS: 93010 ==

== ENCOUNTER 2025-08-28 06:49 | Outpatient (REF) | payer MEDICARE, MEDICAID, SELFPAY ==
--- OUTSIDE RECORDS SUMMARY | 2025-08-28 06:52 | XMS_ITS | Clinical Summary ---
Author Organization [facility] Address [address] [place] [address] Phone Care Team Providers Care Disk Recoater Name Role Phone Larissa Pérez MD Primary Care Provider [phone] Allergies No known active allergies Medications bumetanide (BUMEX) 2 mg tablet Take 1 tablet by mouth 2 times daily. 1 Active fluticasone propionate (FLONASE) 50 mcg/actuation nasal spray 1 [place] by Each Nare route 2 times daily. [...] Diagnosed Date Coronary artery disease invo lving [place] coronary artery of [place] heart 07/20/2025 Overview (07/20/2025): Unfortunately the patient [...] He has an AVEIR leadless pacemaker model [id number] which is MRI conditional. If he were to need an MRI and assuming this would be done through [facility], pre and post MRI scan steps would be followed with arrangements through the [facility] EP service. Sick sinus syndrome (CMS/HCC V24, CMS/HCC V28) 0 03/01/2025 Overview (07/20/2025): -status post leadless pacemaker-AVEIR leadless pacemaker model [id number] which is MRI conditional. Assessment & Plan [...] fluid administration and monitoring overnight in the [facility] ER for hypotension. Will defer to his dialysis team for any adjustments to his antihypertensive medication or treatment with midodrine. Would hesitate to decrease beta alec dose given his propensity to afib with RVR when he does have parosysms. Prediabetes 06/26/2021 Encounters Date Type Department Care Team Description 07/20/2025 1:40 PM EDT Consult [facility] - [address] [place] [address] Randell Mcclain NP Paroxysmal atrial fibrillation (CMS/HCC V24, CMS/HCC V28) (Primary Dx); Sick sinus syndrome (CMS/HCC V24, CMS/HCC V28); Primary hypertension; Hyperlipidemia, unspecified hyperlipidemia type; Coronary artery disease involving [place] coronary artery of [place] heart, unspecified whether angina present 07/12/2025 Telephone [facility] - [address] [place] [address] Kassy Tan MD 05/29/2025 Telephone [facility] - [facility] [address] [facility] [place] [address] Provider, Not In System from Last 3 Months Surgical History Surgery Date Site/Laterality Comments COLONOSCOPY 07/09/2017 PROCEDURE: HISTORICAL COLONOSCOPY OTHER SURGICAL HISTORY 2015 PROCEDURE: HISTORY OTHER; COMMENT: Creation of graft fistula for dialysis OTHER SURGICAL HISTORY PROCEDURE: [place] ABLATE L/R ATRIAL FIBRIL W/ISOLATED PULM VEIN Medical History Medical History Date Comments Cataract 06/26/2021 DX:Cataract Cutaneous neurofibroma DX:Cutane ous neurofibroma; COMMENT: isolated ESRD (end stage renal diseas e) ([facility]/HCC V24, [facility]/HCC V28) DX:ESRD (end stage renal dis ease) ([facility]); COMMENT: follows with Dr. Hernandez Gout DX:Gout Poor dentition DX:Poor dentitio n Prediabetes DX:Prediabetes Type 2 diabetes mellitus ( S/HCC V24, CMS/HCC V28) DX:Type 2 diabetes mellitus ([facility]) Right shoulder pain Hypertension Hyperlipidemia Cardiac resynchronization th erapy pacemaker (STACKER STRAIGHTENER-P) in place Vision loss of left eye [...] this topic Medical Devices Implanted Type Area Cook 3 Pastry Device Identifier Shelf Expiration Date Model / Serial / Lot Abbt-Stju Aveir Vr Lp [id number] Cardiac Pacemaker [employer] AVEIR VR LP [id number] / [id number] / Procedures Procedure Name Priority Date/Time Associated [...] Insurance MEDICARE [place]ICAID [place] Care Teams Disk Recoater Relationship Specialty Start Date End Date Larissa Pérez MD [address] [place] [address] PCP - General 10/19/23
--- OUTSIDE RECORDS SUMMARY | 2025-08-28 06:52 | XMS_ITS | Clinical Summary ---
Author Organization [facility] Address [address] [place] [phone] Phone Care Team Providers Care Plate Mounter Name Role Phone Unavailable Primary Care Provider [...] file Medical Devices Not on file Insurance [facility] [place] [facility] [address] [place], [place] [id number] Additional Source Comments The information contained in this document represents components of the legal health record. It is not the complete legal health record.[facility]
[2025-08-28 06:54] LABS: MANUAL DIFF FLAG NO
[2025-08-28 06:56] LABS: Hematocrit 24.1 % (42.0-52.0); Hemoglobin 7.7 g/dl (14.0-18.0); Imm Gran Abs Auto 0.03 X10*3/uL (0.00-0.03); Imm Gran Pct Auto 0.5 % (0.0-0.4); Lymphocytes Absolute Auto 1.1 X10*3/uL (1.2-4.9); Mean Corpuscular HGB Conc 32.0 g/dl (31.0-36.0); Mean Corpuscular Hemoglobin 31.8 pg (27.0-33.0); Mean Corpuscular Volume 99.6 fL (80.0-98.0); NRBC Abs Auto 0.000 X10*3/uL (0.0-0.012); NRBC Pct Auto 0.0 /100WBC (0.0-0.2); Platelet Count 196 X10*3/uL (160-400); Red Blood Count 2.42 X10*6/uL (4.60-5.80); White Blood Count 6.4 X10*3/uL (4.8-10.8)
[2025-08-28 07:13] LABS: Anion Gap 19 (12-20); Blood Urea Nitrogen 44 mg/dL (9-16); Calcium 9.4 mg/dL (8.4-10.2); Carbon Dioxide 26 mmol/L (22-29); Chloride 98 mmol/L (96-108); Potassium 4.6 mmol/L (3.3-5.1); Sodium 138 mmol/L (135-145)
[2025-08-28 07:20] LABS: Estimated Glomerular Filt Rate 7
== END 2025-08-28 06:50 | disposition home or self-care (01) ==
LOC: HO.MMNH2L 06:49
PROVIDERS: Visit Provider Student in an Organized Health Care Education/Training Program
DX: N18.6 End stage renal disease (principal)
CPT/HCPCS: 36415; 80048; 85025

== ENCOUNTER 2025-09-25 11:14 | Outpatient (REF) | payer MEDICARE, MEDICAID, SELFPAY ==
[2025-09-25 11:18] LABS: MANUAL DIFF FLAG NO
[2025-09-25 11:25] LABS: Hematocrit 32.7 % (42.0-52.0); Hemoglobin 10.3 g/dl (14.0-18.0); Imm Gran Abs Auto 0.03 X10*3/uL (0.00-0.03); Imm Gran Pct Auto 0.4 % (0.0-0.4); Lymphocytes Absolute Auto 0.9 X10*3/uL (1.2-4.9); Mean Corpuscular HGB Conc 31.5 g/dl (31.0-36.0); Mean Corpuscular Hemoglobin 32.5 pg (27.0-33.0); Mean Corpuscular Volume 103.2 fL (80.0-98.0); NRBC Abs Auto 0.000 X10*3/uL (0.0-0.012); NRBC Pct Auto 0.0 /100WBC (0.0-0.2); Platelet Count 121 X10*3/uL (160-400); Red Blood Count 3.17 X10*6/uL (4.60-5.80); White Blood Count 7.7 X10*3/uL (4.8-10.8)
[2025-09-25 12:13] LABS: Anion Gap 15 (12-20); Blood Urea Nitrogen 46 mg/dL (9-16); Calcium 9.2 mg/dL (8.4-10.2); Carbon Dioxide 26 mmol/L (22-29); Chloride 102 mmol/L (96-108); Estimated Glomerular Filt Rate 10; Potassium 5.3 mmol/L (3.3-5.1); Sodium 138 mmol/L (135-145)
== END 2025-09-25 11:15 | disposition home or self-care (01) ==
LOC: HO.LNP 11:14
PROVIDERS: Visit Provider Student in an Organized Health Care Education/Training Program
DX: N18.6 End stage renal disease (principal)
CPT/HCPCS: 80048; 85025

== ENCOUNTER 2025-10-15 13:00 | Outpatient (REF) | payer MEDICARE, MEDICAID, SELFPAY ==
--- OUTSIDE RECORDS SUMMARY | 2025-10-16 10:14 | XMS_ITS | Clinical Summary ---
Author Organization [facility] Address [address] [address] Phone Care Team Providers Care Racing Secretary Name Role Phone Delores Painter MD Primary Care Provider [phone] Allergies No known active allergies Medications Velphoro [...] hours if needed for moderate pain Active oxyCODONE (ROXICODONE) 5 MG immediate release tablet Take 5 mg by mouth 08/20/20 25 Active metoprolol succinate XL (TOPROL XL) 25 MG 24 hr tablet Take 12.5 mg by mouth in the morning. 07/20/20 25 026 Active clopidogrel (PLAVIX) 75 MG tablet Take 75 mg by mouth in the morning. 07/20/20 25 026 Active amoxicillin (AMOXIL) 500 MG tablet Take 500 mg by mouth 08/14/20 25 Active Active Problems Problem Noted Date Diagnosed [...] Encounters Date Type Department Care Team Description 10/13/2025 Treatment [facility] [address] [phone] Zeeshan Infante MD End stage renal disease; Dependence on renal dialysis 10/06/2025 Treatment [facility] [address] [phone] Zeeshan Infante MD End stage renal disease; Dependence on renal dialysis 09/29/2025 Treatment [facility] [address] [phone] Zeeshan Infante MD End stage renal disease; Dependence on renal dialysis 09/27/2025 Telephone [facility] [address] [place] [address] [place] [phone] Katheryn Purvis 09/25/2025 Documentation Only [facility] [address] [place] [phone] Courtney Colmenares 09/22/2025 Treatment [facility] [address] [phone] Zeeshan Infante MD End stage renal disease; Dependence on renal dialysis 09/12/2025 Treatment [facility] [address] [phone] Zeeshan Infante MD End stage renal disease; Dependence on renal dialysis 09/07/2025 2:00 PM EST Office Visit [facility] [address] [place] [phone] Angus Purvis MD End stage renal disease (HCC) (Primary Dx) 09/06/2025 Treatment [facility] [address] [phone] Zeeshan Infante MD End stage renal disease; Dependence on renal dialysis 09/01/2025 Treatment [facility] [address] [phone] Zeeshan Infante MD End stage renal disease; Dependence on renal dialysis 08/21/2025 Treatment [facility] [address] [phone] Zeeshan Infante MD End stage renal disease; Dependence on renal dialysis 08/09/2025 Treatment [facility] [address] [phone] Zeeshan Infante MD End stage renal disease; Dependence on renal dialysis 08/04/2025 Treatment [facility] [address] [phone] Zeeshan Infante MD End stage renal disease; Dependence on renal dialysis 07/26/2025 Treatment [facility] [address] [phone] Zeeshan Infante MD End stage renal disease; Dependence on renal dialysis 07/21/2025 Treatment [facility] [address] [phone] Zeeshan Infante MD End stage renal disease; [...] Care Team (Late st Contact Info) Description 10/19/2025 1:00 PM EST Procedure visit [facility] [address] [place] [address] [place] [phone] Health Maintenance Due Date Last Done Comments [...] Priority Date/Time Associated Diagnosis Comments HEMOGLOBIN Routine 10/13/2025 3:00 AM EST POTASSIUM Routine 10/08/2025 3:00 AM EST LIH (HC) Routine 10/08/2025 3:00 AM EST HEMOGLOBIN Routine 10/04/2025 3:00 AM EST LIH (HC) Routine 10/04/2025 3:00 AM EST POTASSIUM Routine 10/04/2025 3:00 AM EST LIH (HC) Routine 09/27/2025 3:00 AM EST POTASSIUM Routine 09/27/2025 3:00 AM EST HEPATITIS B SURFACE ANTIGEN W/REFL CONFIRM Routine 09/20/2025 3:00 AM EST FERRITIN Routine 09/20/2025 3:00 AM EST TRANSFERRIN SATURATION Routine 3:00 AM EST PROTEIN, TOTAL, SERUM Routine 09/20/2025 3:00 AM EST ELECTROLYTE PANEL Routine 09/20/2025 3:0 0 AM EST LIH (HC) Routine 09/20/2025 3:00 AM EST MAGNESIUM Routine 09/20/2025 3:00 AM EST LACTATE DEHYDROGENASE Routine 09/20/2025 3:00 AM EST GLUCOSE, RANDOM Routine 09/20/2025 3:00 AM EST CREATININE, SERUM Routine 09/20/2025 3:0 0 AM EST BUN/CREATININE RATIO Routine 09/20/2025 3:00 AM EST ALT Routine 09/20/2025 3:00 AM EST BILIRUBIN, TOTAL Routine 09/20/2025 3:00 AM EST AST Routine 09/20/2025 3:00 AM EST ALKALINE PHOSPHATASE Routine 09/20/2025 3:00 AM EST CALCIUM PHOSPHORUS PRODUCT, ADJUSTED (HC) Routine 09/20/2025 3:00 AM EST KT/V NATURAL LOG, URR (HC) Routine 09/20/2025 3:00 AM EST CBC AND DIFFERENTIAL Routine 09/20/2025 3:00 AM EST HEMOGLOBIN Routine 09/12/2025 3:00 AM EST HEMOGLOBIN Routine 09/08/2025 3:00 AM EST HEMOGLOBIN Routine 09/06/2025 3:00 AM EST HEPATITIS B SURFACE ANTIGEN W/REFL CONFIRM Routine 08/23/2025 3:00 AM EST FERRITIN Routine 08/23/2025 3:00 AM EST PROTEIN, TOTAL, SERUM Routine 08/23/2025 3:00 AM EST TRANSFERRIN SATURATION Routine 3:00 AM EST MAGNESIUM Routine 08/23/2025 3:00 AM EST ELECTROLYTE PANEL Routine 08/23/2025 3:0 0 AM EST LIH (HC) Routine 08/23/2025 3:00 AM EST GLUCOSE, RANDOM Routine 08/23/2025 3:00 AM EST LACTATE DEHYDROGENASE Routine 08/23/2025 3:00 AM EST CREATININE, SERUM Routine 08/23/2025 3:0 0 AM EST BUN/CREATININE RATIO Routine 08/23/2025 3:00 AM EST BILIRUBIN, TOTAL Routine 08/23/2025 3:00 AM EST AST Routine 08/23/2025 3:00 AM EST ALT Routine 08/23/2025 3:00 AM EST ALKALINE PHOSPHATASE Routine 08/23/2025 3:00 AM EST CALCIUM PHOSPHORUS PRODUCT, ADJUSTED (HC) Routine 08/23/2025 3:00 AM EST KT/V NATURAL LOG, URR (HC) Routine 08/23/2025 3:00 AM EST CBC AND DIFFERENTIAL Routine 08/23/2025 3:00 AM EST HEMOGLOBIN Routine 08/02/2025 3:00 AM EDT HEMOGLOBIN [...] AND DIFFERENTIAL Routine 07/19/2025 3:00 AM EDT from Last 3 Months Results * (ABNORMAL) Hemoglobin (10/13/2025 3:00 AM EST) Only the most recent of6 resultswithin the time period is included. Hgb 12.3(L) 13.7 - 17.5 g/dL [facility] Hemoglobin x 3 36.9(L) 41.1 - 52.5 g/dL [facility] 10/13/2025 3:00 AM EST 10/15/2025 1:07 PM EST us Zeeshan Infante MD LAB BLOOD ORDERABLES Final Result Performing Organization Address [facility] de Phone Number [facility] [address] [place] [address] * LIH (10/08/2025 3:00 AM EST) Only the most recent of6 resultswithin the time period is included. Lipemia Normal Normal [facility] Icterus Normal Normal [facility] Hemolysis Normal Normal [facility] 10/08/2025 3:00 AM EST 10/09/2025 1:17 PM EST us Zeeshan Infante MD LAB HISTORICA [id number] RESULTS Final Result Performing Organization Address [facility] de Phone Number [facility] [address] [place] [address] * Potassium (10/08/2025 3:00 AM EST) Only the most recent of3 resultswithin the time period is included. Potassium 4.9 3.4 - 5.0 mEq/L [facility] 10/08/2025 3:00 AM EST 10/09/2025 1:17 PM EST us Zeeshan Infante MD LAB BLOOD ORDERABLES Final Result Performing Organization Address [facility] Co de Phone Number [facility] [address] [place] [address] * (ABNORMAL) Kt/V Natural Log, URR (09/20/2025 3:00 AM EST) Only the most recent of3 resultswithin the time period is included. Treatment Time 209 min [facility] Pre-Weight, lb 67.4 kg [facility] Post-Weight, lb 65.0 kg [facility] Ultrafiltration Rate 11 <=13 mL/kg/hr [facility] Comment: Recommend achieving Ultrafiltration Rate (UFR) <=10 mL/kg/hr References: Julio Cesar TY et al. Kidney Int. 2010; 79(2):250-257 BUN 57(H) 7 - 25 mg/dL [facility] BUN Post Dialysis 14 7 - 25 mg/dL [facility] UREA REDUCTION RATIO (%) 75 >=65 % [facility] Kt/V Natural Log 1.64 >=1.2 [facility] 09/20/2025 3:00 AM EST 09/21/2025 1:30 PM EST us Zeeshan Infante MD LAB HISTORICA [id number] RESULTS Final Result [facility] [address] [place] [address] * Calcium Phosphorus Product, Adjusted (09/20/2025 3:00 AM EST) Only the most recent of3 resultswithin the time period is included. Albumin 3.8 3.6 - 5.4 g/dL [facility] Calcium 9.4 8.6 - 10.3 mg/dL [facility] Phosphorus, Serum 4.9 2.5 - 5.0 mg/dL [facility] Ca*PO4 46.1 <55.0 mg2/dL2 [facility] Calcium, Adjusted Total 9.6 8.6 - 10.3 mg/dL [facility] CA*PO4 CORRCTD 47.0 <55.0 mg2/dL2 [facility] 09/20/2025 3:00 AM EST 09/21/2025 1:30 PM EST us Zeeshan Infante MD LAB HISTORICA [id number] RESULTS Final Result Performing Organization Address [facility] Co de Phone Number [facility] [address] [place] [address] * Hepatitis B Surface Ag w/Reflex Confirmation (09/20/2025 3:00 AM EST) Only the most recent of3 resultswithin the time period is included. Hep B Surface Antigen Negative Negative [facility] 09/20/2025 3:00 AM EST 09/21/2025 1:30 PM EST us Zeeshan Infante MD LAB BLOOD ORDERABLES Final Result Performing Organization Address [facility] de Phone Number [facility] [address] [place] [address] * BUN/CREATININE RATIO (09/20/2025 3:00 AM EST) Only the most recent of3 resultswithin the time period is included. BUN/Creatinine Ratio 7.7 <=23.0 [facility] 09/20/2025 3:00 AM EST 09/21/2025 1:30 PM EST us Zeeshan Infante MD LAB HISTORICA [id number] RESULTS Final Result Performing Organization Address [facility] de Phone Number [facility] [address] [place] [address] * (ABNORMAL) TSAT (09/20/2025 3:00 AM EST) Only the most recent of3 resultswithin the time period is included. Iron 48(L) 65 - 175 ug/dL [facility] Transferrin 153(L) 215 - 365 mg/dL [facility] TIBC 214 211 - 406 ug/dL [facility] Iron Saturation (TSat) 22 22 - 52 % [facility] 09/20/2025 3:00 AM EST 09/21/2025 1:30 PM EST us Zeeshan Infante MD LAB BLOOD ORDERABLES Final Result Performing Organization Address City/[facility]/ZIP Co de Phone Number [facility] [address] [place] [address] * (ABNORMAL) CBC and Differential (09/20/2025 3:00 AM EST) Only the most recent of3 resultswithin the time period is included. DIFFERENTIAL MANUAL, 2 Not Indicated [facility] White Blood Cells 5.5 4.2 - 9.1 K/uL [facility] RBC 3.01(L) 4.63 - 6.08 M/uL [facility] Hgb 9.7(L) 13.7 - 17.5 g/dL [facility] Hemoglobin x 3 29.1(L) 41.1 - 52.5 g/dL [facility] Hematocrit 30.4(L) 40.1 - 51.0 % [facility] MCV 101.0(H) 79.0 - 92.2 fL [facility] MCH 32.2 25.7 - 32.2 pg [facility] MCHC 31.9(L) 32.3 - 36.5 g/dL [facility] RDW 15.9(H) 11.6 - 14.4 % [facility] Platelets 117(L) 163 - 337 K/uL [facility] MPV 12.5 9.1 - 13.0 fL [facility] Neutrophils Relative 66.9 34.0 - 67.9 % [facility] Lymphocytes Relative 16.3(L) 21.8 - 53.1 % [facility] Monocytes 10.3 5.3 - 12.2 % [facility] Eosinophils Relative 4.5 0.8 - 7.0 % [facility] Basophils Relative 1.3(H) 0.2 - 1.2 % [facility] Immature Granulocytes 0.7 0.0 - 1.0 % [facility] 09/20/2025 3:00 AM EST 09/21/2025 1:13 PM EST us Zeeshan Infante MD LAB BLOOD ORDERABLES Final Result Performing Organization Address [facility]/ZIP Co de Phone Number [facility] [address] [place] [address] * ALT (09/20/2025 3:00 AM EST) Only the most recent of3 resultswithin the time period is included. ALT (SGPT) 28 10 - 49 U/L [facility] 09/20/2025 3:00 AM EST 09/21/2025 1:30 PM EST us Zeeshan Infante MD LAB BLOOD ORDERABLES Final Result Performing Organization Address [facility]/ZIP Co de Phone Number [facility] [address] [place] [address] * AST (09/20/2025 3:00 AM EST) Only the most recent of3 resultswithin the time period is included. AST (SGOT) 15 <34 U/L [facility] 09/20/2025 3:00 AM EST 09/21/2025 1:30 PM EST us Zeeshan Infante MD LAB BLOOD ORDERABLES Final Result Performing Organization Address [facility] Co de Phone Number [facility] [address] [place] [address] * Protein, total (09/20/2025 3:00 AM EST) Only the most recent of3 resultswithin the time period is included. Total Protein 7.3 6.4 - 8.9 g/dL [facility] 09/20/2025 3:00 AM EST 09/21/2025 1:30 PM EST Zeeshan Infante MD LAB BLOOD ORDERABLES Final Result Performing Organization Address [facility] Co de Phone Number [facility] [address] [place] [address] * Alkaline phosphatase (09/20/2025 3:00 AM EST) Only the most recent of3 resultswithin the time period is included. Alkaline Phosphatase 86 46 - 116 U/L [facility] 09/20/2025 3:00 AM EST 09/21/2025 1:30 PM EST us Zeeshan Infante MD LAB BLOOD ORDERABLES Final Result Performing Organization Address [facility]/ZIP Co de Phone Number [facility] [address] [place] [address] * Magnesium (09/20/2025 3:00 AM EST) Only the most recent of3 resultswithin the time period is included. Magnesium 2.1 1.9 - 2.7 mg/dL [facility] 09/20/2025 3:00 AM EST 09/21/2025 1:30 PM EST us Zeeshan Infante MD LAB BLOOD ORDERABLES Final Result Performing Organization Address [facility] de Phone Number [facility] [address] [place] [address] * Lactate dehydrogenase (09/20/2025 3:00 AM EST) Only the most recent of3 resultswithin the time period is included. LDH 226 120 - 246 U/L [facility] 09/20/2025 3:00 AM EST 09/21/2025 1:30 PM EST us Zeeshan Infante MD LAB BLOOD ORDERABLES Final Result Performing Organization Address [facility] Phone Number [facility] [address] [place] [address] * (ABNORMAL) Glucose, random (09/20/2025 3:00 AM EST) Only the most recent of3 resultswithin the time period is included. Glucose 115(H) 70 - 99 mg/dL [facility] Comment: ADA guidelines outline the following fasting glucose ranges: Normal: <100 Prediabetes: 100-125 Diabetes: >125 09/20/2025 3:00 AM EST 09/21/2025 1:30 PM EST us Zeeshan Infante MD LAB BLOOD ORDERABLES Final Result Performing Organization Address [facility] Co de Phone Number [facility] [address] [place] [address] * (ABNORMAL) Ferritin (09/20/2025 3:00 AM EST) Only the most recent of3 resultswithin the time period is included. Ferritin 1,439(H) 22 - 322 ng/mL [facility] 09/20/2025 3:00 AM EST 09/21/2025 1:30 PM EST Zeeshan Infante MD LAB BLOOD ORDERABLES Final Result Performing Organization Address [facility] de Phone Number [facility] [address] [place] [address] * (ABNORMAL) Creatinine, serum (09/20/2025 3:00 AM EST) Only the most recent of3 resultswithin the time period is included. Creatinine 7.45(H) 0.70 - 1.30 mg/dL [facility] 09/20/2025 3:00 AM EST 09/21/2025 1:30 PM EST Zeeshan Infante MD LAB BLOOD ORDERABLES Final Result Performing Organization Address [facility] de Phone Number [facility] [address] [place] [address] * Bilirubin, total (09/20/2025 3:00 AM EST) Only the most recent of3 resultswithin the time period is included. Total Bilirubin 0.3 0.3 - 1.2 mg/dL [facility] 09/20/2025 3:00 AM EST 09/21/2025 1:30 PM EST us Zeeshan Infante MD LAB BLOOD ORDERABLES Final Result Performing Organization Address [facility] Co de Phone Number [facility] [address] [place] [address] * (ABNORMAL) Electrolyte panel (09/20/2025 3:00 AM EST) Only the most recent of3 resultswithin the time period is included. Sodium 137 136 - 145 mEq/L [facility] Potassium 6.1(H) 3.4 - 5.0 mEq/L [facility] Chloride 99 98 - 107 mEq/L [facility] Bicarbonate (CO2) 26 21 - 31 mEq/L [facility] Anion Gap 12 3 - 14 mEq/L [facility] 09/20/2025 3:00 AM EST 09/21/2025 1:30 PM EST us Zeeshan Infante MD LAB BLOOD ORDERABLES Final Result Performing Organization Address [facility] Co de Phone Number [facility] [address] [place] [address] * PTH, Intact (07/19/2025 3:00 AM EDT) PTH, Intact 163 160 - 721 pg/mL [facility] Comment: Suggested (KDIGO) ESRD maintenance range is two to nine times the upper normal limit (80.1 pg/mL) for the laboratory. 07/19/2025 3:00 AM EDT 07/20/2025 12:17 PM EDT us Zeeshan Infante MD LAB BLOOD ORDERABLES Final Result Performing Organization Address [facility] Co de Phone Number [facility] [address] [place] [address] * Hemoglobin A1c (07/19/2025 3:00 AM EDT) Hemoglobin A1C 5.4 <5.7 % [facility] Comment: Methodology: Enzymatic Normal: <5.7% Prediabetes: 5.7-6.4% Diabetes: >6.4% Diabetic Glucose Control Evaluation: Therapeutic action suggested at >8.0% ADA recommends a glycemic goal of <7.0% 07/19/2025 3:00 AM EDT 07/20/2025 12:16 PM EDT Zeeshan Infante MD LAB BLOOD ORDERABLES Final Result Performing Organization Address [facility] Co de Phone Number [facility] [address] [place] [address] * (ABNORMAL) Lipid panel (07/19/2025 3:00 AM [...] BLOOD ORDERABLES Final Result Performing Organization Address [facility] de Phone Number [facility] [address] [place] [address] from Last 3 Months Insurance Medicaid [place] Medicaid [place] Medicaid [place] Care Teams Racing Secretary Relationship Specialty Start Date End Date Delores Painter MD [address] PCP - General 10/28/20
--- OUTSIDE RECORDS SUMMARY | 2025-10-16 10:14 | XMS_ITS | Clinical Summary ---
Author Organization [facility] Address [address] [place] [address] Phone Care Team Providers Care Combat Rifle Crewmember Name Role Phone Larissa Pérez MD Primary Care Provider [phone] Allergies No known active allergies Medications bumetanide (BUMEX) 2 mg tablet Take 1 tablet by mouth 2 times daily. 1 Active fluticasone propionate (FLONASE) 50 mcg/actuation nasal spray 1 [place] by Each Nare route 2 times daily. [...] Diagnosed Date Coronary artery disease invo lving [place] coronary artery of [place] heart 07/20/2025 Overview (07/20/2025): Unfortunately the patient [...] Orders: ECG 12 lead Paroxysmal atrial fibrillation 03/01/2025 Assessment & Plan (07/20/2025 2:38 PM [...] He has an AVEIR leadless pacemaker model [id number] which is MRI conditional. If he were to need an MRI and assuming this would be done through [facility], pre and post MRI scan steps would be followed with arrangements through the [facility] EP service. Sick sinus syndrome 03/01/2025 Overview (07/20/2025): -status post leadless pacemaker-AVEIR leadless pacemaker model [id number] which is MRI conditional. Assessment & Plan (07/20/2025 2:38 PM EDT): Pacemaker in place MRI conditional. Denies any recent syncopal events. Assessment & Plan (03/01/2025 4:21 PM EDT): Status post leadless pacemaker for prolonged conversion pauses. Is set up and monitored via our device clinic. Internal carotid artery stenosis 02/27/2025 Atrial flutter 12/01/2022 Overview (11/15/2024): Last Assessment [...] fluid administration and monitoring overnight in the [facility] ER for hypotension. Will defer to his dialysis team for any adjustments to his antihypertensive medication or treatment with midodrine. Would hesitate to decrease beta alec dose given his propensity to afib with RVR when he does have parosysms. Prediabetes 06/26/2021 Encounters Date Type Department Care Team Description 08/03/2025 Telephone [facility] [address] [place] [address] Provider, Not In System 07/20/2025 1:40 PM EDT Consult [facility] [address] [place] [address] Randell Mcclain NP Paroxysmal atrial fibrillation (CMS/HCC V24, CMS/HCC V28) (Primary Dx); Sick sinus syndrome (CMS/HCC V24, CMS/HCC V28); Primary hypertension; Hyperlipidemia, unspecified hyperlipidemia type; Coronary artery disease involving [place] coronary artery of [place] heart, unspecified whether angina present from Last 3 Months Surgical History Surgery Date Site/Laterality Comments COLONOSCOPY 07/09/2017 PROCEDURE: HISTORICAL COLONOSCOPY OTHER SURGICAL HISTORY 2016 PROCEDURE: HISTORY OTHER; COMMENT: Creation of graft fistula for dialysis OTHER SURGICAL HISTORY PROCEDURE: UT ABLATE L/R ATRIAL FIBRIL W/ISOLATED PULM VEIN Medical History Medical History Date Comments Cataract 06/26/2021 DX:Cataract Cutaneous neurofibroma DX:Cutane ous neurofibroma; COMMENT: isolated ESRD (end stage renal diseas e) ([facility] V24, [facility] V28) DX:ESRD (end stage renal dis ease) ([facility]); COMMENT: follows with Dr. Hernandez Gout DX:Gout Poor dentition DX:Poor dentitio n Prediabetes DX:Prediabetes Type 2 diabetes mellitus ( [facility] V24, [facility] V28) DX:Type 2 diabetes mellitus ([facility]) Right shoulder pain Hypertension Hyperlipidemia Cardiac resynchronization th erapy pacemaker ([employer]-P) in place Vision loss of left eye [...] Falls Risk Assessment 02/29/2024 Depression Screening 10/18/2024 Diabetes: Annual Urine Albumin-Creatinine Ratio (uACR) 11/27/2024 COVID-19 Vaccine ( season) 2025 08/04/2022, 04/03/2022, 08/23/2021, Additional history exists Diabetes: Annual GFR (Glomerular Filtration Rate) 10/10/2025 10/10/2024 Hypertension/CHF/CAD Annual BMP Blood Test 10/10/2025 10/10/2024 [...] this topic Medical Devices Implanted Type Area Under Cutter Device Identifier Shelf Expiration Date Model / Serial / Lot Abbt-Stju Aveir Vr Lp [id number] Cardiac Pacemaker [employer] [id number] / [id number] / Procedures Procedure Name Priority Date/Time Associated Diagnosis Comments ECG 12-LEAD Routine 07/20/2025 2:45 PM EDT Paroxysmal atrial fibrillation (CMS/HCC V24, CMS/HCC V28) LIPID PANEL Routine 07/04/2021 from Last 3 Months or Most Recently Relevant to Health Maintenance Results * ECG 12 lead (07/20/2025 2:45 PM EDT) Ventricular Rate ECG 94 BPM GEMUSE Atrial Rate 376 BPM GEMUSE QRS Duration 88 ms GEMUSE Q-T Interval 340 ms GEMUSE QTc 425 ms GEMUSE R [place] 51 degrees GEMUSE T [place] 62 degrees GEMUSE ECG Interpretation Atrial flutter with variable A-V block with occasional ventricular-pa juliocesar complexes Abnormal ECG When compared with ECG of 28-FEB-2025 12:35, Electronic ventricular pacemaker has replaced Sinus rhythm Vent. rate has increased BY 33 BPM Confirmed by TARYN LAMAR ([id number]) on 08/31/2025 1:25:09 PM GEMUSE 07/20/2025 1:59 PM EDT 08/31/2025 1:25 PM EST us Randell Mcclain NP ECG ORDERABLES Edited Result - Final GEMUSE [...] Insurance [place]ID [place] Care Teams Combat Rifle Crewmember Relationship Specialty Start Date End Date Larissa Pérez MD [address] [place] [address] PCP - General 10/19/23
--- OUTSIDE RECORDS SUMMARY | 2025-10-16 10:15 | XMS_ITS | Clinical Summary ---
Author Organization [employer] [facility] Address [address] [place] [phone] Phone Care Team Providers Care Cereal Supervisor Name Role Phone Unavailable Primary Care Provider [...] file Medical Devices Not on file [facility] [place] [facility] [place], [place] [id number] Additional Source Comments The information contained in this document represents components of the legal health record. It is not the complete legal health record.[facility]
--- OUTSIDE RECORDS SUMMARY | 2025-10-16 10:15 | XMS_ITS | Encounter Summary ---
Author Organization [facility] Address [address] [address] Phone Care Team Providers Care Program Research Specialist Name Role Phone Delores Painter MD Primary Care Provider + [phone] Encounter Details Date Type Department Care Team (Late st Contact Info) Description 10/13/2025 Treatment [facility] [address] [address] Cherrie Infante MD [address] [address] End stage renal disease; Dependence [...] Dialysis Note - Cherrie Infante MD - 10/13/2025 12:00 AM EST BASIC NOTE Patient: Alton Thornton : 1960 Note Author: CHERRIE INFANTE MD Service Date: 10/13/2025 This patient was personally seen [id number] for a basic visit as part of routine monthly dialysis care for end stage renal disease. Attending Group Exercise Class Instructor: CHERRIE INFANTE MD Dialysis Location: [facility] Schedule: Shift: 1 OVERVIEW Patient is stable. HOME MEDICATIONS Current [facility] Outpatient Medications acetaminophen (TYLENOL) 325 MG tablet Take 325 mg by mouth every 6 (six) hours if needed for mild pain Start Date: amoxicillin (AMOXIL) 500 MG tablet Take 500 mg by mouth Start Date: 08/14/2025 apixaban (ELIQUIS) 5 MG tablet Take 1 tablet by mouth twice a day Start Date: 04/26/2021 aspirin (ST JDOY) 81 MG EC tablet Take 81 mg by mouth in the morning. Start Date: atorvastatin (LIPITOR) 10 MG tablet 0 Refills, Maintenance, 07/25/21 11:22:00 EDT, Partial fill upon patient request if the prescription is for a schedule II opioid drug. Start Date: 07/25/2021 bisacodyl (DULCOLAX) 10 MG suppository Insert 10 mg into the rectum 1 (one) time each day Start Date: bumetanide (BUMEX) 2 MG tablet Take 1 tablet by mouth in the morning and 1 tablet in the evening. Start Date: 06/27/2021 calcium carbonate EX (TUMS EX) 750 MG chewable tablet Chew 300 mg in the morning. Start Date: carvedilol (COREG) 25 MG tablet Take 1 tablet (25 mg total) by mouth in the morning and 1 tablet (25 mg total) in the evening. Start Date: 11/11/2021 clopidogrel (PLAVIX) 75 MG tablet Take 75 mg by mouth in the morning. Start Date: 07/20/2025 dextrose (GLUTOSE) 40 % gel Take by mouth Start Date: Docusate Sodium (DSS) 100 MG capsule Take 100 mg by mouth in the morning and 100 mg in the evening. Start Date: fluticasone (FLONASE) 50 MCG/ACT nasal spray 1 spray in the morning. Start Date: Fosrenol 1000 MG pack MIX 2 PACKETS WITH SMALL AMOUNT OF APPLESAUCE OR SIMILAR FOOD. EAT IMMEDIATELY 3 TIMES/DAY WITH MEALS Start Date: 01/05/2023 gabapentin (NEURONTIN) 100 MG capsule Take 100 mg by mouth in the morning and 100 mg in the evening and 100 mg before bedtime. Start Date: Glucagon 1 MG/0.2ML solution prefilled syringe Inject under the skin Start Date: lactulose (ENULOSE) 10 GM/15ML solution oral solution Take by mouth in the morning. Start Date: Lidocaine 4 % patch Apply 1 patch topically Start Date: losartan (COZAAR) 50 MG tablet Take 1 tablet by mouth at bed time Start Date: 06/27/2021 melatonin 3 MG tablet Take by mouth Start Date: metoprolol succinate XL (TOPROL XL) 25 MG 24 hr tablet Take 12.5 mg by mouth in the morning. Start Date: 07/20/2025 midodrine (PROAMATINE) 5 MG tablet Start Date: 2025 Multiple Vitamin (MULTIVITAMIN ADULT PO) Take 1 tablet by mouth in the morning. Start Date: ondansetron (ZOFRAN) 4 MG tablet Start Date: 03/08/2025 oxyCODONE (ROXICODONE) 5 MG immediate release tablet Take 5 mg by mouth Start Date: 08/20/2025 pantoprazole (PROTONIX) 40 MG EC tablet Take 40 mg by mouth 1 (one) time each day before breakfast Do not crush, chew, or split. Start Date: polyethylene glycol (GLYCOLAX) 17 g packet Take 17 g by mouth in the morning. Start Date: predniSONE (DELTASONE) 20 MG tablet TAKE 3 TABLETS BY MOUTH ONCE DAILY FOR 4 DAYS THEN STOP Start Date: 07/13/2024 senna (SENOKOT) 8.6 MG tablet Take 8.6 mg by mouth in the morning. Start Date: Sodium Zirconium Cyclosilicate (Lokelma) 10 g pack Take by mouth Start Date: tiZANidine (ZANAFLEX) 2 MG tablet Start Date: 03/09/2025 traMADol (ULTRAM) 50 MG tablet Take 50 mg by mouth every 8 (eight) hours if needed for moderate pain Start Date: traZODone (DESYREL) 100 MG tablet Take 50 mg by mouth every night Start Date: Velphoro 500 MG chewable tablet 3 tablets 3 (three) times a day before meals 2 tablets 3 times/ day AND once tablet with snacks Start Date: 04/02/2020 Current [facility] Epic Allergies Allergen: No Known Allergies ADEQUACY ASSESSMENT Kt/V, Natural Log 1.64 (09/20/25) 1.45 (08/23/25) 1.70 (07/19/25) UREA REDUCTION RATIO (%) 75 (09/20/25) 75 (08/23/25) 77 (07/19/25) BUN 57 (09/20/25) 44 (08/23/25) 35 (07/19/25) BUN Post Dialysis 14 (09/20/25) 11 (08/23/25) 8 (07/19/25) Creatinine 7.45 (09/20/25) 6.26 (08/23/25) 6.69 (07/19/25) Bicarbonate (CO2) 26 (09/20/25) 30 (08/23/25) 30 (07/19/25) Sodium 137 (09/20/25) 139 (08/23/25) 140 (07/19/25) ANEMIA ASSESSMENT Hgb 12.1 (10/04/25) 9.7 (09/20/25) 9.0 (09/12/25) Iron Saturation (TSat) 22 (09/20/25) 20 (08/23/25) 19 (07/19/25) Ferritin 1,439 (09/20/25) 1,543 (08/23/25) 988 (07/19/25) Iron 48 (09/20/25) 37 (08/23/25) 40 (07/19/25) TIBC 214 (09/20/25) 182 (08/23/25) 207 (07/19/25) MCV 101.0 (09/20/25) 97.5 (08/23/25) 96.8 (07/19/25) Platelets 117 (09/20/25) 198 (08/23/25) 128 (07/19/25) BMM ASSESSMENT Calcium, Adjusted Total 9.6 09/20/25 9.6 08/23/25 9.9 07/19/25 Calcium 9.4 09/20/25 9.6 08/23/25 9.9 07/19/25 Phosphorus, Serum 4.9 09/20/25 4.8 08/23/25 3.6 07/19/25 Ca*PO4 46.1 09/20/25 46.1 08/23/25 35.6 07/19/25 PTH, Intact 163 07/19/25 150 04/21/25 47 01/18/25 Magnesium 2.1 09/20/25 2.2 08/23/25 2.0 07/19/25 Alkaline Phosphatase 86 09/20/25 92 08/23/25 92 07/19/25 NUTRITION ASSESSMENT Albumin 3.8 09/20/25 4.1 08/23/25 4.0 07/19/25 Potassium 4.9 10/08/25 5.6 10/04/25 6.1 09/27/25 Glucose 115 09/20/25 126 08/23/25 124 07/19/25 Hemoglobin A1C 5.4 07/19/25 4.9 04/21/25 4.6 01/18/25 ADDITIONAL LABS White Blood Cells 5.5 (09/20/25) 9.6 (08/23/25) 7.1 (07/19/25) Cholesterol 121 (07/19/25) 122 (04/21/25) 137 (01/18/25) HDL 54 (07/19/25) 51 (04/21/25) 52 (01/18/25) LDL-Calc 54 (07/19/25) 55 (04/21/25) 67 (01/18/25) Triglycerides 65 (07/19/25) 81 (04/21/25) 90 (01/18/25) Chol/HDL Ratio 2.2 (07/19/25) 2.4 (04/21/25) 2.6 (01/18/25) ALT (SGPT) 28 (09/20/25) 16 (08/23/25) 9 (07/19/25) AST (SGOT) 15 (09/20/25) 16 (08/23/25) 10 (07/19/25) Signed by: CHERRIE INFANTE MD on 10/13/2025 at 08:47:41 AM Transcribed by: CHERRIE INFANTE MD on 10/13/2025 at 08:47:41 AM documented in this encounter Plan of Treatment Upcoming Encounters Date Type Department Care Team (Late st Contact Info) Description 10/19/2025 1:00 PM EST Procedure visit [facility] [address] [place] [address] documented as of this encounter Visit Diagnoses Diagnosis End stage renal disease Dependence on renal dialysis documented in this encounter Care Teams Program Research Specialist Relationship Specialty Start Date End Date Delores Painter MD [address] PCP - General 10/28/20 documented as of this encounter
--- OUTSIDE RECORDS SUMMARY | 2025-10-16 10:15 | XMS_ITS | Encounter Summary ---
Author Organization [facility] Address [address] [place] [phone] Phone Care Team Providers Care Performing Artist Name Role Phone Delores Painter MD Primary Care Provider [phone] Encounter Details Date Type Department Care Team (Late st Contact Info) Description 06/07/2025 TCM in Dialysis Clinic [facility] [address] [phone] Cherrie Infante MD [address] [phone] Social History Tobacco Use Types [...] 06/07/2025 The patient was seen for a [id number] visit as part of Transitional Care Management services. Attending Asbestos Textile Supervisor: CHERRIE INFANTE MD Dialysis Location: [facility] Schedule: Shift: 1 INTERACTIVE CONTACT Contact [...] with the patient. VISIT DIAGNOSES CPT Code 00909 - High complexity, seen 8-14 days post discharge or moderate complexity, seen [id number] days of discharge. N18.6 End stage renal disease Signed by: CHERRIE INFANTE MD on 06/08/2025 at 05:18:40 AM Transcribed by: CHERRIE INFANTE MD on 06/08/2025 at 05:18:40 AM documented in this encounter Plan of Treatment Upcoming Encounters Date Type Department Care Team (Late st Contact Info) Description 10/19/2025 1:00 PM EST Procedure visit [facility] [address] [place] [address] documented as of this encounter Visit Diagnoses Not on filedocumented in this encounter Care Teams Performing Artist Relationship Specialty Start Date End Date Delores Painter MD [address] PCP - General 10/28/20 documented as of this encounter
[2025-10-16 10:34] LABS: Chlamydia pneumoniae PCR Not Detected (Not Detect.); Coronavirus 229E PCR Not Detected (Not Detect.); Coronavirus HKU1 PCR Not Detected (Not Detect.); Coronavirus NL63 PCR Not Detected (Not Detect.); Coronavirus OC43 PCR Not Detected (Not Detect.); RSV PCR Not Detected (Not Detect.); Rhino/Enterovirus PCR Not Detected (Not Detect.); SARS-CoV-2 PCR Not Detected (Not Detect.)
[2025-10-16 10:37] LABS: Influenza A H1 PCR Not Detected (Not Detect.); Influenza A H1-2009 PCR Not Detected (Not Detect.); Influenza A H3 PCR Not Detected (Not Detect.)
== END 2025-10-15 13:01 ==
LOC: HO.MMNH2L 13:00
PROVIDERS: Visit Provider Physician Assistant Medical
DX: E11.22 Type 2 diabetes mellitus with diabetic chronic kidney disease (principal); N18.6 End stage renal disease
CPT/HCPCS: 87633